=== PATIENT | female | born 1935 | race Caucasian/White ===

== ENCOUNTER → 2017-03-20 | Outpatient (CLI) | payer MEDICARE, OTHER ==
[2015-09-19 00:07] VITALS: BP 130/54
[~2017-03-20] MED LIST: ALPR1TAB2 PO; APIX5TAB3 PO; ASPI325T8 PO; CALC-98 PO; CARV12.5 PO; EZET10TA18 PO; FURO20TA3 PO; LEVO75TA PO; LEVO88TA4 PO; LISI-338 PO; LOSA100T6 PO; LOSA50TA6 PO; METH-37 PO; METR500T8 PO; MULT-246 PO; MV,C1TAB19 PO; NITR0.4T22 SL; OMEG500C PO; POTA10TA10 PO; PRAV40TA PO
--- NOTE | 2017-03-20 16:51 | RAD ---
Indication: Urinary frequency. Cystocele. Discomfort. Technique: Transabdominal and transvaginal pelvic ultrasound was performed. Findings: Patient has underwent hysterectomy. Vaginal cuff is within normal limits. There is no free pelvic fluid. Neither ovary is visualized transabdominally or transvaginally. Bladder volume is calculated at 180 mL and postvoid residual is 43 mL. Impression: Post hysterectomy. Mild post void residual.
== END | disposition home or self-care (01) ==
LOC: US 14:13
PROVIDERS: ATTEND Nurse Practitioner Family
DX: N81.11 Cystocele, midline (principal); F17.210 Nicotine dependence, cigarettes, uncomplicated; Z90.710 Acquired absence of both cervix and uterus
CPT/HCPCS: 76830; 76856

== ENCOUNTER 2017-07-19 17:40 | Inpatient (IN) | payer MEDICARE, OTHER ==
[~2017-07-19] VITALS: Ht 165.1 cm; Wt 70.5 kg
[2017-07-19 18:26] LABS: BASO % 1 % (0-3); EOS # 0.1 x10^3/uL (0.0-0.7); EOS % 2 % (0-3); HEMATOCRIT 40.6 % (36.0-47.0); HEMOGLOBIN 14.4 g/dL (12.0-15.5); LYMPH # 2.4 x10^3/uL (1.0-4.8); LYMPH % 38 % (24-48); MEAN CORPUSCULAR HEMOGLOBIN 33 pg (25-35); MEAN CORPUSCULAR HGB CONC 35 g/dL (31-37); MEAN CORPUSCULAR VOLUME 94 fL (79-100); MONO # 0.5 x10^3/uL (0.0-1.1); MONO % 8 % (0-9); NEUT # 3.2 x10^3uL (1.8-7.7); NEUT % 51 % (31-73); PLATELET COUNT 257 x10^3/uL (140-400); RED BLOOD COUNT 4.31 x10^6/uL (3.50-5.40); RED CELL DISTRIBUTION WIDTH 13.6 % (11.5-14.5); WHITE BLOOD COUNT 6.3 x10^3/uL (4.0-11.0)
[2017-07-19 18:48] LABS: ALBUMIN 4.7 g/dL (3.4-5.0); ALBUMIN/GLOBULIN RATIO 1.2 (1.0-1.7); CALCIUM 9.4 mg/dL (8.5-10.1); CREATININE 0.7 mg/dL (0.6-1.0); GFR 80.3; POTASSIUM 3.2 mmol/L (3.5-5.1); TOTAL BILIRUBIN 0.9 mg/dL (0.2-1.0); TOTAL PROTEIN 8.7 g/dL (6.4-8.2)
--- NOTE | 2017-07-19 18:49 | PHYS DOC ---
Past History Past Medical History: Anxiety, CAD, High Cholesterol, Heart Disease, Hypertension, Hypothyroid Past Surgical History: Other Smoking: Cigarettes, Less than 1pk/day Alcohol Use: None Drug Use: None Adult General Chief Complaint Chief Complaint: dizziness HPI HPI 82-year-old female patient brought in by EMS because of dizziness. Patient states she felt dizzy and lightheadedness with nausea at 1300 today while she was at grocery and after drinking somewhat and felt better. Patient states she went home and felt fine but then her son visited her , her speech did not make sense and she couldn't tell her words right. She denies focal neuro deficit, headache, vomiting, patient. Patient is a poor historian and unable to give a good history. Patient complaining of irregular heartbeat to EMS and chest discomfort to [employer]GER [employer] at arrival but denied any chest pain or palpitation to me. Review of Systems Review of Systems Constitutional: Denies fever or chills [] Eyes: Denies change in visual acuity, redness, or eye pain [] HENT: Denies nasal congestion or sore throat [] Respiratory: Denies cough or shortness of breath [] Cardiovascular: No additional information not addressed in HPI [] GI: Denies abdominal pain, vomiting, bloody stools or diarrhea, reports nausea [] : Denies dysuria or hematuria [] Musculoskeletal: Denies back pain or joint pain [] Integument: Denies rash or skin lesions [] Neurologic: Reports dizziness, denies headache, focal weakness or sensory changes [] Endocrine: Denies polyuria or polydipsia [] All other systems were reviewed and found to be within normal limits, except as documented in this note. Allergies Allergies Allergies Coded Allergies Type Severity Reaction Last Updated Verified Penicillins Allergy Intermediate Hives 06/09/13 Yes acetaminophen Allergy Intermediate Rash 02/09/14 Yes amlodipine besylate Allergy Intermediate Swelling 06/09/13 Yes carisoprodol Allergy Intermediate BREAK OUT 02/09/14 Yes iodine Allergy Intermediate 08/04/13 Yes nitrofurantoin Allergy Intermediate 08/04/13 Yes sertraline HCl Allergy Intermediate Nausea 02/10/14 Yes Influenza Virus Vaccines Allergy Unknown ANAPHYLAXIS 09/18/15 Yes Physical Exam Physical Exam Constitutional: Well nourished, no acute distress, non-toxic appearance. [] HENT: Normocephalic, atraumatic, bilateral external ears normal, oropharynx moist, no oral exudates, nose normal. [] Eyes: PERRLA, EOMI, conjunctiva normal, no discharge. [] Neck: Normal range of motion, no tenderness, supple, no stridor. bilat carotid bruits Cardiovascular:Heart rate regular rhythm, systolic murmur Lungs & Thorax: Bilateral breath sounds clear to auscultation [] Abdomen: Bowel sounds normal, soft, no tenderness, no masses, no pulsatile masses. [] Skin: Warm, dry, no erythema, no rash. [] Back: No tenderness, no CVA tenderness. [] Extremities: No tenderness, no cyanosis, no clubbing, ROM intact, no edema. [] Neurologic: Alert and oriented X 3, normal motor function, normal sensory function, no focal deficits noted. NIH 0 Psychologic: Affect normal, judgement normal, mood normal. [] Current Patient Data Vital Signs Vital Signs Date Time Temp Pulse Resp B/P (MAP) Pulse Ox O2 Delivery O2 Flow Rate FiO2 07/19/17 18:17 98.1 79 20 97 Room Air Lab Results Laboratory Tests Test 07/19/17 18:05 White Blood Count 6.3 x10^3/uL (4.0-11.0) Red Blood Count 4.31 x10^6/uL (3.50-5.40) Hemoglobin 14.4 g/dL (12.0-15.5) Hematocrit 40.6 % (36.0-47.0) Mean Corpuscular Volume 94 fL (79-100) Mean Corpuscular Hemoglobin 33 pg (25-35) Mean Corpuscular Hemoglobin Concent 35 g/dL (31-37) Red Cell Distribution Width 13.6 % (11.5-14.5) Platelet Count 257 x10^3/uL (140-400) Neutrophils (%) (Auto) 51 % (31-73) Lymphocytes (%) (Auto) 38 % (24-48) Monocytes (%) (Auto) 8 % (0-9) Eosinophils (%) (Auto) 2 % (0-3) Basophils (%) (Auto) 1 % (0-3) Neutrophils # (Auto) 3.2 x10^3uL (1.8-7.7) Lymphocytes # (Auto) 2.4 x10^3/uL (1.0-4.8) Monocytes # (Auto) 0.5 x10^3/uL (0.0-1.1) Eosinophils # (Auto) 0.1 x10^3/uL (0.0-0.7) Basophils # (Auto) 0.0 x10^3/uL (0.0-0.2) Troponin I Quantitative < 0.017 ng/mL (0-0.055) EKG EKG EKG interpreted by me. EKG at 1749 showed sinus rhythm with bigeminy PVCs, poor R-wave progress in anterolateral leads. Radiology/Procedures Radiology/Procedures CT head showed chronic changes, no acute changes per radiologist[] Course & Med Decision Making Course & Med Decision Making Pertinent Labs and Imaging studies are pending. (See chart for details) Patient's care transferred to Dr. García at 1950 with hx of [place], episode of dysarthria/expressive aphasia, carotid bruits, will admit for possible TIA w/u [] Dragon Disclaimer Dragon Disclaimer This electronic medical record was generated, in whole or in part, using a voice recognition dictation system. Departure Departure: Impression: Primary Impression: Dizziness Referrals: MARYA MAJOR MD (PCP) TACHO ALMAZAN MD Jul 19, 2017 18:49 MICHELLE GARCÍA MD Jul 20, 2017 00:38
--- NOTE | 2017-07-19 19:10 | RAD ---
Indication: Dizziness and confusion. TECHNIQUE: CT head without IV contrast COMPARISON: Previous study from 04/18/2015 FINDINGS: No pathologic extra-axial or intra-axial fluid collection. There is mild diffuse cerebral atrophy with ex vacuo dilation of the ventricles. The basal cisterns are within normal limits. Visualized orbits within normal limits. No acute intracranial bleed. No focal loss of condon-white differentiation. No calvarial lesions. Visualized paranasal sinuses and mastoid air cells are clear. Confluent low-attenuation is seen in the periventricular and deep white matter. IMPRESSION: 1. No acute intracranial process on this noncontrast CT. If concern for acute ischemic stroke is high, please consider MRI brain. 2. Advanced white matter changes likely secondary to chronic microvascular ischemic disease. Electronically signed by: Ahsan Dietz DO (07/19/2017 7:07 PM) [facility]
[2017-07-19] MEDS ORDERED: IV NORMAL SALINE 1,000ML 1,000 ML IV ONE (20:45)
[2017-07-19] MEDS ORDERED: POTASSIUM CHLORIDE 20 MEQ TABLET.ER. PO ONE (21:00)
[2017-07-19 21:33] LABS: BILIRUBIN,URINE NEG (NEG); CLARITY,URINE CLEAR; COLOR,URINE YELLOW; GLUCOSE,URINE NEG (NEG); NITRITE,URINE NEG (NEG); UROBILINOGEN,URINE 0.2 mg/dL (0.2 mg/dL)
[2017-07-19 21:34] LABS: BACTERIA,URINE 0 /HPF (0-FEW); SQUAMOUS EPITHELIAL CELL,UR FEW /LPF
[2017-07-19] MEDS ORDERED: ONDANSETRON PF 4 MG/2 ML VIAL. IV PRN (22:30)
[2017-07-20 02:09] VITALS: BP 150/84
[2017-07-20] MEDS ORDERED: HYDR12.53 PO (05:10)
[2017-07-20] MEDS ORDERED: CARV25TA2 PO (05:10)
[2017-07-20] MEDS ORDERED: LEVO50TA5 PO (05:10)
[2017-07-20] MEDS ORDERED: ZOLP10TA PO (05:10)
[2017-07-20] MEDS ORDERED: NIFE30TA15 PO (05:10)
[2017-07-20] MEDS ORDERED: CLON0.1T PO (05:10)
[2017-07-20 05:17] VITALS: BP 114/63
[2017-07-20] MEDS ORDERED: NITROGLYCERIN SUBLINGUAL 0.4 MG BOTTLE OF 25. SL PRN (07:00)
[2017-07-20] MEDS ORDERED: ZOLPIDEM 5 MG TABLET. PO PRN (07:00)
[2017-07-20] MEDS ORDERED: ANTI-COAG MONITOR BY PHARMACY. MC PRN (07:00)
[2017-07-20] MEDS ORDERED: cloNIDine HCL 0.1 MG TABLET PO PRN (07:00)
[2017-07-20] MEDS ORDERED: LEVOTHYROXINE 50 MCG TABLET PO SCH (07:30)
[2017-07-20] MEDS ORDERED: CALCIUM CARB/VIT D3 500/200 TABLET PO SCH (08:00)
[2017-07-20 08:51] VITALS: BP 114/63
[2017-07-20] MEDS ORDERED: OMEGA-3 FATTY ACIDS/FISH OIL 1,000 MG CAPSULE. PO SCH (09:00)
[2017-07-20] MEDS ORDERED: APIXABAN 5 MG TABLET. PO SCH (09:00)
[2017-07-20] MEDS ORDERED: MULTIVITAMIN with MINERAL TABLET. PO SCH (09:00)
[2017-07-20] MEDS ORDERED: NON FORMULARY ITEM (Carvedilol 25 MG) PO SCH (09:00)
[2017-07-20] MEDS ORDERED: ALPRAZolam 0.5 MG TABLET PO SCH (09:00)
[2017-07-20] MEDS ORDERED: hydroCHLOROthiazide 12.5 MG CAPSULE PO SCH (09:00)
--- NOTE | 2017-07-20 09:35 | RAD ---
Portable chest, 07/19/2017: History: Dizziness, confusion Comparison is made to a study from 02/08/2014. The heart size and pulmonary vascularity are normal. There is calcific plaquing of the aorta. No pulmonary infiltrate is seen. There is no evidence of pleural fluid. The bony structures are demineralized. IMPRESSION: No acute cardiopulmonary abnormality is detected.
[2017-07-20 10:10] LABS: BASO % 1 % (0-3); EOS # 0.1 x10^3/uL (0.0-0.7); EOS % 2 % (0-3); HEMATOCRIT 40.9 % (36.0-47.0); HEMOGLOBIN 14.1 g/dL (12.0-15.5); LYMPH # 1.8 x10^3/uL (1.0-4.8); LYMPH % 36 % (24-48); MEAN CORPUSCULAR HEMOGLOBIN 33 pg (25-35); MEAN CORPUSCULAR HGB CONC 35 g/dL (31-37); MEAN CORPUSCULAR VOLUME 96 fL (79-100); MONO # 0.3 x10^3/uL (0.0-1.1); MONO % 6 % (0-9); NEUT # 2.9 x10^3uL (1.8-7.7); NEUT % 56 % (31-73); PLATELET COUNT 276 x10^3/uL (140-400); RED BLOOD COUNT 4.28 x10^6/uL (3.50-5.40); RED CELL DISTRIBUTION WIDTH 13.5 % (11.5-14.5); WHITE BLOOD COUNT 5.1 x10^3/uL (4.0-11.0)
[2017-07-20 10:31] LABS: CALCIUM 9.2 mg/dL (8.5-10.1); CREATININE 0.7 mg/dL (0.6-1.0); GFR 80.3; POTASSIUM 3.6 mmol/L (3.5-5.1)
[2017-07-20] MEDS ORDERED: ASPI-630 PO (10:59)
--- NOTE | 2017-07-20 19:55 | HP ---
ADMIT DATE: HISTORY OF PRESENT ILLNESS: An 82-year-old female transferred here from the [facility] ER, they were on diversion. In any case, the patient was having problems with slurred speech, double speech, and as a result of this, the patient was transferred and seen through the Emergency Room. The patient in turn denies any headaches, although she felt dizzy, lightheaded and some nausea. The patient has been having problems with hypertension in the past. She denied outside of her trouble speaking, any neurological deficits, headaches or vomiting. The patient otherwise complains of irregular heartbeat to EMS and chest discomfort. PAST MEDICAL HISTORY: Included heart attack x 2, congestive heart failure. She is on anticoagulant therapy, hypercholesterolemia, colonic polyps, hemorrhoids, hysterectomy, urinary tract infections, hypothyroidism, depression, anxiety. Pneumonia and flu shots are up-to-date. FAMILY HISTORY: Diabetes in the mother, sister with Alzheimer disease. ALLERGIES: INFLUENZA VIRUS VACCINES, PENICILLINS, ACETAMINOPHEN, AMLODIPINE, SOMA, IODINE, NITROFURANTOIN, ZOLOFT. MEDICATIONS: Reviewed. Lipitor 10, Zetia, fish oil, nifedipine 30 mg daily, carvedilol 25 t.i.d., Xanax 1 mg b.i.d., Microzide 12.5, Eliquis 5 mg, Synthroid 50 mcg, nitroglycerin, clonidine, Zofran, potassium chloride. SOCIAL HISTORY: No smoking, alcohol or drug use. REVIEW OF SYSTEMS: The patient denies any recent weight loss, weight gain, change in bowel habit. Does have some slurred speech that came on all of a sudden during the day. Denied chest pain when examined here. Neurologically stable. Did have some nausea, but no vomiting. No problem with her bowels. PHYSICAL EXAMINATION: VITAL SIGNS: Blood pressure 114/60, respiration 18, pulse 53, afebrile. HEENT: The patient's head was atraumatic, normocephalic. Eyes: PERRLA without jaundice. Mouth and throat were normal. NECK: Supple without JVD or thyromegaly. LUNGS: Clear to auscultation. CARDIOVASCULAR: Regular sinus rhythm, S1, S2, without murmur, rub, thrill, or extra heart sound. ABDOMEN: Soft, nontender, no rebound or guarding. Positive bowel sounds. No hepatosplenomegaly was noted. EXTREMITIES: No clubbing, cyanosis, or edema. NEUROLOGIC: The patient was alert and oriented x 3. Speech fluent, spontaneous and appropriate, although she did have a little bit intermittent. The patient has been worked up extensively at [facility] for echoes as well as carotid Dopplers. IMPRESSION: Transient ischemic attack, hypercholesterolemia, and hypertension, essential. The patient will be monitored carefully, make further evaluation on her. She was to make sure she was taking her aspirin, and will continue to be monitored to make further evaluation on her as noted. MARYA MAJOR MD DR: ALYSSA/maryann JOB#: [id number] / [id number]
[2017-07-20] MEDS ORDERED: ATORVASTATIN CALCIUM 10 MG TABLET. PO SCH (21:00)
[2017-07-20] MEDS ORDERED: EZETIMIBE 10 MG TABLET PO SCH (21:00)
--- NOTE | 2017-07-21 07:41 | EKG ---
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
--- NOTE | 2017-07-26 10:04 | DS ---
DATE OF DISCHARGE: 07/20/2017 HOSPITAL COURSE: The patient is an 82-year-old female, who came in, was transferred from [facility]. They were ____ with possible TIA. She was searching for her words and having difficulty understanding things there for a while, although tended to clear up. She also was feeling dizzy, lightheaded, some nausea. The patient was admitted. CT scan was unremarkable and the patient made excellent recovery during the rest of her hospitalization. Last blood pressure 114/63, respiration 18, pulse 60. The patient's labs were basically unremarkable. In any case, the patient made good progress with the rest of her hospitalization. She had a slightly low potassium and a slightly elevated blood sugar. The patient otherwise did reasonably well, was discharged home. See MRAD. Decreased activity. She will follow up in 7-10 days or see me sooner as needed. See MRAD. IMPRESSION: Transient ischemic attack, hypokalemia, hyperglycemia. MARYA MAJOR MD DR: ALYSSA/maryann JOB#: [id number] / [id number]
== END 2017-07-20 11:23 | disposition home or self-care (01) | DRG 69 ==
LOC: ER 17:40 → 1 SOUTH 22:18
PROVIDERS: ADMIT Family Medicine; ATTEND Family Medicine
DX: G45.9 Transient cerebral ischemic attack, unspecified (principal); I11.0 Hypertensive heart disease with heart failure; I50.9 Heart failure, unspecified; F32.9 Major depressive disorder, single episode, unspecified; I25.10 Atherosclerotic heart disease of native coronary artery without angina pectoris; E03.9 Hypothyroidism, unspecified; F41.9 Anxiety disorder, unspecified; F17.210 Nicotine dependence, cigarettes, uncomplicated; E78.00 Pure hypercholesterolemia, unspecified; I25.2 Old myocardial infarction; Z83.3 Family history of diabetes mellitus; Z82.0 Family history of epilepsy and other diseases of the nervous system; Z86.010 Personal history of colon polyps; Z90.710 Acquired absence of both cervix and uterus; Z88.1 Allergy status to other antibiotic agents; Z88.0 Allergy status to penicillin; Z88.7 Allergy status to serum and vaccine; Z88.8 Allergy status to other drugs, medicaments and biological substances; Z91.041 Radiographic dye allergy status; Z87.440 Personal history of urinary (tract) infections; Z79.899 Other long term (current) drug therapy
CPT/HCPCS: 36415; 70450; 71045; 80048; 80053; 81001; 82553; 83735; 83880; 84484; 85025; 85610; 99285-25; J7030

== ENCOUNTER 2018-10-30 16:51 | Emergency (ER) | payer MEDICARE, OTHER ==
[~2018-10-30] VITALS: Ht 317.5 cm; Wt 58.0 kg
[~2018-10-30 16:51] MED LIST changes: +ASPI-630 PO; +CARV25TA2 PO; +CLON0.1T PO; +HYDR12.572 PO; +LEVO50TA5 PO; +LOSA100T14 PO; -LOSA100T6 PO; -LOSA50TA6 PO; +LOSA50TA86 PO; +METR-34 PO; -METR500T8 PO; +NIFE30TA15 PO; +ZOLP10TA PO
--- NOTE | 2018-10-30 17:11 | EKG ---
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
[2018-10-30 18:07] LABS: BASO % 0 % (0-3); EOS # 0.1 x10^3/uL (0.0-0.7); EOS % 1 % (0-3); HEMOGLOBIN 13.9 g/dL (12.0-15.5); LYMPH # 2.1 x10^3/uL (1.0-4.8); LYMPH % 18 % (24-48); MEAN CORPUSCULAR HEMOGLOBIN 32 pg (25-35); MEAN CORPUSCULAR HGB CONC 34 g/dL (31-37); MEAN CORPUSCULAR VOLUME 94 fL (79-100); MONO # 0.8 x10^3/uL (0.0-1.1); MONO % 7 % (0-9); NEUT # 8.7 x10^3uL (1.8-7.7); NEUT % 74 % (31-73); PLATELET COUNT 283 x10^3/uL (140-400); RED BLOOD COUNT 4.36 x10^6/uL (3.50-5.40); RED CELL DISTRIBUTION WIDTH 13.6 % (11.5-14.5); WHITE BLOOD COUNT 11.7 x10^3/uL (4.0-11.0)
[2018-10-30 18:11] LABS: BILIRUBIN,URINE NEG (NEG); CLARITY,URINE CLOUDY; COLOR,URINE AMBER; GLUCOSE,URINE NEG (NEG); UROBILINOGEN,URINE 0.2 mg/dL (0.2 mg/dL)
[2018-10-30 18:12] LABS: BACTERIA,URINE FEW /HPF (0-FEW); HYALINE CASTS, URINE OCC /HPF; NITRITE,URINE NEG (NEG); SQUAMOUS EPITHELIAL CELL,UR OCC /LPF
[2018-10-30 18:28] LABS: ALBUMIN 4.1 g/dL (3.4-5.0); ALBUMIN/GLOBULIN RATIO 1.1 (1.0-1.7); CREATININE 0.7 mg/dL (0.6-1.0); GFR 80.1; POTASSIUM 3.5 mmol/L (3.5-5.1); TOTAL BILIRUBIN 0.9 mg/dL (0.2-1.0); TOTAL PROTEIN 7.7 g/dL (6.4-8.2)
--- NOTE | 2018-10-30 18:34 | PHYS DOC ---
Past History Past Medical History: Anxiety, CAD, High Cholesterol, Heart Disease, Hypertension, Hypothyroid Past Surgical History: Other Smoking: Cigarettes, Less than 1pk/day Alcohol Use: None Drug Use: None Adult General Chief Complaint Chief Complaint: HYPERTENSION HPI HPI Patient is a [age] year old [sex] who presents with [] Review of Systems Review of Systems Constitutional: Denies fever or chills [] Eyes: Denies change in visual acuity, redness, or eye pain [] HENT: Denies nasal congestion or sore throat [] Respiratory: Denies cough or shortness of breath [] Cardiovascular: No additional information not addressed in HPI [] GI: Denies abdominal pain, nausea, vomiting, bloody stools or diarrhea [] : Denies dysuria or hematuria [] Musculoskeletal: Denies back pain or joint pain [] Integument: Denies rash or skin lesions [] Neurologic: Denies headache, focal weakness or sensory changes [] Endocrine: Denies polyuria or polydipsia [] All other systems were reviewed and found to be within normal limits, except as documented in this note. Allergies Allergies Allergies Coded Allergies Type Severity Reaction Last Updated Verified Penicillins Allergy Intermediate Hives 06/09/13 Yes acetaminophen Allergy Intermediate Rash 02/09/14 Yes amlodipine besylate Allergy Intermediate Swelling 06/09/13 Yes carisoprodol Allergy Intermediate BREAK OUT 02/09/14 Yes iodine Allergy Intermediate 08/04/13 Yes nitrofurantoin Allergy Intermediate 08/04/13 Yes sertraline HCl Allergy Intermediate Nausea 02/10/14 Yes Influenza Virus Vaccines Allergy Unknown ANAPHYLAXIS 09/18/15 Yes Physical Exam Physical Exam Constitutional: Well developed, well nourished, no acute distress, non-toxic appearance. [] HENT: Normocephalic, atraumatic, bilateral external ears normal, oropharynx moist, no oral exudates, nose normal. [] Eyes: PERRLA, EOMI, conjunctiva normal, no discharge. [] Neck: Normal range of motion, no tenderness, supple, no stridor. [] Cardiovascular:Heart rate regular rhythm, no murmur [] Lungs & Thorax: Bilateral breath sounds clear to auscultation [] Abdomen: Bowel sounds normal, soft, no tenderness, no masses, no pulsatile masses. [] Skin: Warm, dry, no erythema, no rash. [] Back: No tenderness, no CVA tenderness. [] Extremities: No tenderness, no cyanosis, no clubbing, ROM intact, no edema. [] Neurologic: Alert and oriented X 3, normal motor function, normal sensory function, no focal deficits noted. [] Psychologic: Affect normal, judgement normal, mood normal. [] Current Patient Data Vital Signs Vital Signs Date Time Temp Pulse Resp B/P (MAP) Pulse Ox O2 Delivery O2 Flow Rate FiO2 10/30/18 17:59 81 16 172/99 (123) 97 Lab Results Laboratory Tests Test 10/30/18 17:30 10/30/18 17:45 White Blood Count 11.7 x10^3/uL (4.0-11.0) H Red Blood Count 4.36 x10^6/uL (3.50-5.40) Hemoglobin 13.9 g/dL (12.0-15.5) Hematocrit 41.0 % (36.0-47.0) Mean Corpuscular Volume 94 fL (79-100) Mean Corpuscular Hemoglobin 32 pg (25-35) Mean Corpuscular Hemoglobin Concent 34 g/dL (31-37) Red Cell Distribution Width 13.6 % (11.5-14.5) Platelet Count 283 x10^3/uL (140-400) Neutrophils (%) (Auto) 74 % (31-73) H Lymphocytes (%) (Auto) 18 % (24-48) L Monocytes (%) (Auto) 7 % (0-9) Eosinophils (%) (Auto) 1 % (0-3) Basophils (%) (Auto) 0 % (0-3) Neutrophils # (Auto) 8.7 x10^3uL (1.8-7.7) H Lymphocytes # (Auto) 2.1 x10^3/uL (1.0-4.8) Monocytes # (Auto) 0.8 x10^3/uL (0.0-1.1) Eosinophils # (Auto) 0.1 x10^3/uL (0.0-0.7) Basophils # (Auto) 0.0 x10^3/uL (0.0-0.2) Sodium Level 130 mmol/L (136-145) L Potassium Level 3.5 mmol/L (3.5-5.1) Chloride Level 94 mmol/L (98-107) L Carbon Dioxide Level 25 mmol/L (21-32) Anion Gap 11 (6-14) Blood Urea Nitrogen 10 mg/dL (7-20) Creatinine 0.7 mg/dL (0.6-1.0) Estimated GFR (Cockcroft-Gault) 80.1 BUN/Creatinine Ratio 14 (6-20) Glucose Level 106 mg/dL (70-99) H Calcium Level 9.0 mg/dL (8.5-10.1) Total Bilirubin 0.9 mg/dL (0.2-1.0) Aspartate Amino Transferase (AST) 26 U/L (15-37) Alanine Aminotransferase (ALT) 22 U/L (14-59) Alkaline Phosphatase 76 U/L (46-116) Total Protein 7.7 g/dL (6.4-8.2) Albumin 4.1 g/dL (3.4-5.0) Albumin/Globulin Ratio 1.1 (1.0-1.7) Urine Collection Type Unknown Urine Color Katiana Urine Clarity Cloudy Urine pH 7.0 Urine Specific [place] 1.020 Urine Protein >100 mg/dl (NEG-TRACE) Urine Glucose (UA) Neg mg/dL (NEG) Urine Ketones (Stick) Neg mg/dL (NEG) Urine Blood Large (NEG) Urine Nitrite Neg (NEG) Urine Bilirubin Neg (NEG) Urine Urobilinogen Dipstick 0.2 mg/dL (0.2 mg/dL) Urine Leukocyte Esterase Small (NEG) Urine RBC 11-20 /HPF (0-2) Urine WBC 1-4 /HPF (0-4) Urine Squamous Epithelial Cells Occ /LPF Urine Bacteria Few /HPF (0-FEW) Urine Hyaline Casts Occ /HPF Urine Mucus Mod /LPF EKG EKG @1659 NSR at 86bpm, NO ST elevation, incomplete RBBB, low voltage QRS Radiology/Procedures Radiology/Procedures [] Course & Med Decision Making Course & Med Decision Making Pertinent Labs and Imaging studies reviewed. (See chart for details) [] Dragon Disclaimer Dragon Disclaimer This electronic medical record was generated, in whole or in part, using a voice recognition dictation system. Departure Departure: Impression: Primary Impression: Hypertension Additional Impression: Urinary retention Disposition: 01 HOME, SELF-CARE Condition: STABLE Referrals: MARYA MAJOR MD (PCP) HARI SUTTON MD Patient Instructions: Joyner Catheter Care, Adult, Hypertension, [id number] Additional Instructions: Please take all your medications as prescribed and follow closely with your family physician for adjustment of your blood pressure medications. Follow closely with your surgeon for your prolapse. Problem Qualifiers Primary Impression: Hypertension Hypertension type: unspecified Qualified Codes: I10 - Essential (primary) hypertension IRVING PALMER DO Oct 30, 2018 18:34
[2018-10-30 18:35] VITALS: BP 178/105
== END 2018-10-30 19:30 | disposition home or self-care (01) ==
LOC: ER 16:51
DX: I10 Essential (primary) hypertension (principal); R33.9 Retention of urine, unspecified; I25.10 Atherosclerotic heart disease of native coronary artery without angina pectoris; E78.00 Pure hypercholesterolemia, unspecified; I11.9 Hypertensive heart disease without heart failure; E03.9 Hypothyroidism, unspecified; F17.210 Nicotine dependence, cigarettes, uncomplicated; Z88.0 Allergy status to penicillin; Z88.6 Allergy status to analgesic agent; Z88.8 Allergy status to other drugs, medicaments and biological substances; Z88.7 Allergy status to serum and vaccine
CPT/HCPCS: 36415; 51702; 80053; 81001; 85025; 87086; 93005; 99285-25

== ENCOUNTER → 2019-02-01 | Outpatient (CLI) | payer MEDICARE, OTHER ==
[~2019-02-01] MED LIST changes: -EZET10TA18 PO; +EZET10TA20 PO
[2019-02-01 13:49] LABS: BASO # 0.1 x10^3/uL (0.0-0.2); BASO % 1 % (0-3); EOS # 0.1 x10^3/uL (0.0-0.7); EOS % 1 % (0-3); HEMATOCRIT 38.6 % (36.0-47.0); HEMOGLOBIN 13.3 g/dL (12.0-15.5); LYMPH # 2.5 x10^3/uL (1.0-4.8); LYMPH % 37 % (24-48); MEAN CORPUSCULAR HEMOGLOBIN 32 pg (25-35); MEAN CORPUSCULAR HGB CONC 34 g/dL (31-37); MEAN CORPUSCULAR VOLUME 94 fL (79-100); MONO # 0.5 x10^3/uL (0.0-1.1); MONO % 8 % (0-9); NEUT # 3.7 x10^3uL (1.8-7.7); NEUT % 54 % (31-73); PLATELET COUNT 325 x10^3/uL (140-400); RED BLOOD COUNT 4.11 x10^6/uL (3.50-5.40); RED CELL DISTRIBUTION WIDTH 14.8 % (11.5-14.5); WHITE BLOOD COUNT 6.8 x10^3/uL (4.0-11.0)
--- NOTE | 2019-02-01 13:55 | RAD ---
EXAM: CT HEAD WITHOUT CONTRAST. HISTORY: Fall, head injury. TECHNIQUE: Computed tomography of the head was performed without intravenous contrast. *One or more of the following individualized dose reduction techniques were utilized for this examination: 1. Automated exposure control. 2. Adjustment of the mA and/or kV according to patient size. 3. Use of iterative reconstruction technique. COMPARISON: 07/19/2017. FINDINGS: There is no intracranial hemorrhage. 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 There is moderate to severe chronic microangiopathic white matter change elsewhere. Prominence of the lateral ventricles and hemispheric sulci indicates mild to moderate atrophy for patient age. 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 The orbits are unremarkable. The temporal bones are unremarkable. The calvarium reveals no suspicious lesions. There are atherosclerotic calcifications of the internal carotid and vertebral arteries. IMPRESSION: 1. No acute intracranial findings. 2. Mild to moderate atrophy and moderate to severe chronic microangiopathic change. Electronically signed by: Truman Jonas MD (02/01/2019 1:51 PM) [facility]
[2019-02-01 14:08] LABS: ALBUMIN 4.3 g/dL (3.4-5.0); ALBUMIN/GLOBULIN RATIO 1.1 (1.0-1.7); CALCIUM 9.5 mg/dL (8.5-10.1); CREATININE 0.7 mg/dL (0.6-1.0); GFR 80.1; POTASSIUM 3.9 mmol/L (3.5-5.1); TOTAL BILIRUBIN 0.5 mg/dL (0.2-1.0); TOTAL PROTEIN 8.1 g/dL (6.4-8.2)
== END | disposition home or self-care (01) ==
LOC: CT 12:56
PROVIDERS: ATTEND Family Medicine
DX: S09.8XXA Other specified injuries of head, initial encounter (principal); I63.81 Other cerebral infarction due to occlusion or stenosis of small artery; G31.9 Degenerative disease of nervous system, unspecified; I65.23 Occlusion and stenosis of bilateral carotid arteries; R90.82 White matter disease, unspecified; X58.XXXA Exposure to other specified factors, initial encounter; Y93.89 Activity, other specified; Y92.89 Other specified places as the place of occurrence of the external cause; Y99.8 Other external cause status
CPT/HCPCS: 36415; 70450; 80053; 85025

== ENCOUNTER 2019-02-11 06:30 | Inpatient (IN) | payer MEDICARE, OTHER ==
[~2019-02-11] VITALS: Ht 162.6 cm; Wt 66.7 kg
[2019-02-11] MEDS ORDERED: FUROSEMIDE 40 MG/4 ML VIAL IVP ONE (07:00)
[2019-02-11] MEDS ORDERED: IPRATRPIUM/ALBUTEROL 0.5/2.5MG 3 ML NEBU. NEB ONE (07:00)
[2019-02-11] MEDS ORDERED: cloNIDine HCL 0.1 MG TABLET PO ONE (07:00)
--- NOTE | 2019-02-11 07:07 | PHYS DOC ---
Past History Past Medical History: No Pertinent History, Hypertension, VT, Stroke Past Surgical History: No Surgical History, Hysterectomy Smoking: Cigarettes, Less than 1pk/day Alcohol Use: None Drug Use: None Adult General Chief Complaint Chief Complaint: WEAKNESS/GENERALIZED HPI HPI 83-year-old female presents via EMS with shortness of breath. The patient started to feel short of breath early this morning. She does not provide detai ls, but says "I think I'm dying". She denies any pain. She is on medications but does not what they are. When EMS arrived, her O2 sat was 92% on room air. They tell us that after she got his rehabilitation should help or difficulty breathing so they put her on 15 L on nonrebreather. Patient denies recent fever or chills. She does not complain of anything else because of her breathing. Review of Systems Review of Systems Constitutional: Denies fever or chills [] Eyes: Denies change in visual acuity, redness, or eye pain [] HENT: Denies nasal congestion or sore throat [] Respiratory: Shortness of breath [] Cardiovascular: No additional information not addressed in HPI [] GI: Denies abdominal pain, nausea, vomiting, bloody stools or diarrhea [] : Denies dysuria or hematuria [] Musculoskeletal: Denies back pain or joint pain [] Integument: Denies rash or skin lesions [] Neurologic: Denies headache, focal weakness or sensory changes [] Endocrine: Denies polyuria or polydipsia [] All other systems were reviewed and found to be within normal limits, except as documented in this note. Current Medications Current Medications Current Medications Medications (Trade) Dose Ordered Sig/Sherrell Start Time Stop Time Status Last Admin Dose Admin Clonidine HCl (Catapres) 0.2 mg 1X ONCE 02/11/19 07:00 02/11/19 07:01 Furosemide (Lasix) 40 mg 1X ONCE 02/11/19 07:00 02/11/19 07:01 Allergies Allergies Allergies Coded Allergies Type Severity Reaction Last Updated Verified Penicillins Allergy Intermediate Hives 06/09/13 Yes acetaminophen Allergy Intermediate Rash 02/09/14 Yes amlodipine besylate Allergy Intermediate Swelling 06/09/13 Yes carisoprodol Allergy Intermediate BREAK OUT 02/09/14 Yes iodine Allergy Intermediate 08/04/13 Yes nitrofurantoin Allergy Intermediate 08/04/13 Yes sertraline HCl Allergy Intermediate Nausea 02/10/14 Yes Influenza Virus Vaccines Allergy Unknown ANAPHYLAXIS 09/18/15 Yes Physical Exam Physical Exam Constitutional: Well developed, well nourished, moderate acute distress, non- toxic appearance. [] HENT: Normocephalic, atraumatic, bilateral external ears normal, oropharynx moist, no oral exudates, nose normal. [] Eyes: PERRLA, EOMI, conjunctiva normal, no discharge. [] Neck: Normal range of motion, no tenderness, supple, no stridor. [] Cardiovascular:Heart rate 92, regular rhythm, no murmur [] Lungs & Thorax: Bilateral breath sounds with expiratory crackles [] Abdomen: Bowel sounds normal, soft, no tenderness, no masses, no pulsatile masses. [] Skin: Warm, dry, no erythema, no rash. [] Back: No tenderness, no CVA tenderness. [] Extremities: No tenderness, no cyanosis, no clubbing, ROM intact, no edema. [] Neurologic: Alert and oriented X 3, normal motor function, normal sensory function, no focal deficits noted. [] Psychologic: Affect normal, judgement normal, mood anxious [] Current Patient Data Vital Signs Vital Signs Date Time Temp Pulse Resp B/P (MAP) Pulse Ox O2 Delivery O2 Flow Rate FiO2 02/11/19 06:37 97.7 95 36 100 NonRebreather Mask EKG EKG [] Radiology/Procedures Radiology/Procedures [] Impressions: EXAM: CHEST ONE VIEW. HISTORY: Dyspnea, weakness. COMPARISON: 07/19/2017. FINDINGS: A frontal view of the chest is obtained. Interstitial opacities are consistent with hfyl-db-dnyulbdj pulmonary edema. The right hilum is prominent. There is no pneumothorax or clear pleural effusion. The heart is not enlarged. There are atherosclerotic calcifications of the aorta. Hyperinflation suggests chronic obstructive pulmonary disease. IMPRESSION: 1. Diffuse interstitial opacities are consistent with yayh-ay-cblfywau pulmonary edema. 2. Right hilar enlargement may represent a focal infiltrate or mass. CT or follow-up to resolution is recommended. Electronically signed by: Truman Jonas MD (02/11/2019 8:02 AM) [facility] [place] DICTATED AND SIGNED BY: CHRISSY JONAS MD DATE: 02/11/19 0802 CC: BIGG MCKEON DO; MARYA MAJOR MD ~ Course & Med Decision Making Course & Med Decision Making Pertinent Labs and Imaging studies reviewed. (See chart for details) On arrival, the patient had obvious expiratory crackles. She did not appear fluid overloaded, but her lung auscultation was consistent with fluid. Her chest x-ray confirmed pulmonary edema. She was given 40 mg of Lasix by IV. For her elevated blood pressure she was also given 2 of clonidine. The patient's initial ABG will pH was 7.25 with a 61 CO2 and O2 of 75. She began to have urinary output and her heart rate decreased. We were able to reduce her oxygen to 6 L with simple mask and maintaining an O2 sat greater than 92. Since she appeared to be improving, I did not immediately place her on BiPAP. We will repeat her ABG to make sure she is improving. Her chest x-ray also showed hilar prominence and there was concern for mass. I have ordered a CT of the chest. The patient's labs have a slightly elevated white count and an elevated blood sugar of 218. The patient's repeat ABG of pH of 7.397, CO2 37.4, O2 100. After began to get good urine output, the patient was feeling less short of breath. She was able to speak in full sentences. We were also able to back or down to nasal cannula. CT of the chest is pending. I spoke with Dr. Lazo about the patient and he has agreed to admit her for further management. 43 minutes of critical care time was spent on this patient exclusive of other billable procedures. [] Dragon Disclaimer Dragon Disclaimer This electronic medical record was generated, in whole or in part, using a voice recognition dictation system. Departure Departure: Impression: Primary Impression: Pulmonary edema Additional Impressions: Hypoxia Hypercapnia Disposition: ADMITTED INPATIENT Admitting Physician: Marya Major Condition: GUARDED Referrals: MARYA MAJOR MD (PCP) Problem Qualifiers BIGG MCKEON DO Feb 11, 2019 07:07
[2019-02-11 07:15] LABS: BGAS PH 7.25 (7.35-7.45)
[2019-02-11 07:47] LABS: BASO # 0.1 x10^3/uL (0.0-0.2); BASO % 1 % (0-3); EOS # 0.1 x10^3/uL (0.0-0.7); EOS % 1 % (0-3); HEMATOCRIT 43.4 % (36.0-47.0); HEMOGLOBIN 14.5 g/dL (12.0-15.5); LYMPH # 3.9 x10^3/uL (1.0-4.8); LYMPH % 31 % (24-48); MEAN CORPUSCULAR HEMOGLOBIN 32 pg (25-35); MEAN CORPUSCULAR HGB CONC 33 g/dL (31-37); MEAN CORPUSCULAR VOLUME 95 fL (79-100); MONO # 0.9 x10^3/uL (0.0-1.1); MONO % 7 % (0-9); NEUT # 7.6 x10^3uL (1.8-7.7); NEUT % 61 % (31-73); PLATELET COUNT 406 x10^3/uL (140-400); RED BLOOD COUNT 4.57 x10^6/uL (3.50-5.40); WHITE BLOOD COUNT 12.6 x10^3/uL (4.0-11.0)
[2019-02-11 08:00] LABS: ALBUMIN/GLOBULIN RATIO 1.1 (1.0-1.7); CALCIUM 8.6 mg/dL (8.5-10.1); CREATININE 0.8 mg/dL (0.6-1.0); GFR 68.7; POTASSIUM 3.8 mmol/L (3.5-5.1); TOTAL BILIRUBIN 0.8 mg/dL (0.2-1.0); TOTAL PROTEIN 7.8 g/dL (6.4-8.2)
--- NOTE | 2019-02-11 08:05 | RAD ---
EXAM: CHEST ONE VIEW. HISTORY: Dyspnea, weakness. COMPARISON: 07/19/2017. FINDINGS: A frontal view of the chest is obtained. Interstitial opacities are consistent with ypyp-uc-utmxjzxv pulmonary edema. The right hilum is prominent. There is no pneumothorax or clear pleural effusion. The heart is not enlarged. There are atherosclerotic calcifications of the aorta. Hyperinflation suggests chronic obstructive pulmonary disease. IMPRESSION: 1. Diffuse interstitial opacities are consistent with rueo-ia-efjzjwfe pulmonary edema. 2. Right hilar enlargement may represent a focal infiltrate or mass. CT or follow-up to resolution is recommended. Electronically signed by: Truman Jonas MD (02/11/2019 8:02 AM) [facility]
[2019-02-11 08:16] LABS: BILIRUBIN,URINE NEG (NEG); CLARITY,URINE CLEAR; COLOR,URINE YELLOW; GLUCOSE,URINE 100 mg/dL (NEG); NITRITE,URINE NEG (NEG); UROBILINOGEN,URINE 0.2 mg/dL (0.2 mg/dL)
[2019-02-11 08:17] LABS: BACTERIA,URINE 0 /HPF (0-FEW); HYALINE CASTS, URINE MOD /HPF; SQUAMOUS EPITHELIAL CELL,UR OCC /LPF
[2019-02-11 08:24] LABS: INFLUENZA A PATIENT NEGATIVE (NEGATIVE); INFLUENZA B PATIENT NEGATIVE (NEGATIVE)
[2019-02-11 08:52] LABS: BGAS PH 7.4 (7.35-7.45)
--- NOTE | 2019-02-11 09:33 | RAD ---
EXAM: CT OF THE CHEST WITHOUT CONTRAST. HISTORY: Pulmonary edema, hilar mass. TECHNIQUE: Computed tomography of the chest was performed without intravenous contrast. COMPARISON: None. FINDINGS: Images of the upper abdomen reveal calcified granulomas in the liver and spleen. Bone windows reveal a moderate superior plate compression fracture at L2. This is new since 2014. There are no pathologically enlarged mediastinal or axillary lymph nodes. Calcified mediastinal lymph nodes are likely secondary to old granulomatous disease. There are small bilateral pleural effusions and a small pericardial effusion. The left atrium is mildly enlarged. There are dense diffuse atherosclerotic calcifications of the aorta and coronary arteries. Aortic valve calcifications are noted. There is mild to moderate centrilobular emphysema in the apices. The right hilum demonstrates no mass. The finding of radiography is consistent with a mild infiltrate in the right upper and middle lobes. There is moderate centrilobular emphysema and basilar atelectasis. Calcified granulomas are noted. IMPRESSION: 1. The right hilar process is consistent with the right upper and middle lobe infiltrate. Follow-up to resolution is recommended by radiographs. 2. Moderate pulmonary edema. Small bilateral pleural and pericardial effusions. 3. Mild to moderate centrilobular emphysema. 4. Aortic valve calcifications. Correlate for aortic stenosis. *One or more of the following individualized dose reduction techniques were utilized for this examination: 1. Automated exposure control. 2. Adjustment of the mA and/or kV according to patient size. 3. Use of iterative reconstruction technique. Electronically signed by: Truman Jonas MD (02/11/2019 9:30 AM) [facility]
[2019-02-11] MEDS ORDERED: IV NORMAL SALINE 1,000ML 1,000 ML IV ONE (10:30)
[2019-02-11] MEDS ORDERED: LEVO75TA PO (10:38)
[2019-02-11] MEDS ORDERED: HYDR12.59 PO (10:41)
[2019-02-11] MEDS ORDERED: ONDANSETRON PF 4 MG/2 ML VIAL. IV PRN (11:00)
--- NOTE | 2019-02-11 11:00 | NUR ---
The patient, AGNIESZKA MOSS, 83 y/o, F admitted by MARYA MAJOR MD, was given written information regarding hospital policies, unit procedures and contact persons. Valuables were checked and left in room. Patient arrived to ICU 4, able to make needs known and denies complaints at this time. Reported by ER that patients BP was in low 80s and started on IV fluid bolus. Patients vitals remain stable at this time, sats remain 100% on 3L. Patient states she is feeling much better since leaving ER. Will notify Dr Major of arrival to unit.
[2019-02-11 11:11] VITALS: BP 119/75
[2019-02-11] MEDS: IPRATRPIUM/ALBUTEROL 0.5/2.5MG 3 ML NEBU. NEB SCH ×3 (12:00→20:00)
--- NOTE | 2019-02-11 13:03 | EKG ---
[address] [address] Test Date: 2019-02-11 Test Time: 06:41:47 Pat Name: AGNIESZKA MOSS Department: Room: Gender: F Backshoe Person: : [id number] Requested By: BIGG MCKEON Order Number: [id number] Reading MD: Measurements Intervals [place] Rate: 94 P: 56 AL: 192 QRS: 32 QRSD: 90 T: 65 QT: 340 QTc: 430 Interpretive Statements SINUS RHYTHM QRS(T) CONTOUR ABNORMALITY CONSIDER ANTEROLATERAL MYOCARDIAL DAMAGE POSSIBLY ABNORMAL ECG RI6.01 No previous ECG available for comparison
--- NOTE | 2019-02-11 13:59 | NUR ---
Patient ambulatory requires sba , continent of bowel and bladder and has been placed on Room air. Patients Joyner cath removed at this time, will assess accurate I&Os using bedside commode. Patient feeling much better since being admitted from ER. Dr Julio here today, no new orders at this time. Will continue to monitor.
[2019-02-11 15:39] VITALS: BP 105/55
[2019-02-11 15:40] VITALS: BP 87/49
[2019-02-11 15:48] VITALS: BP 107/57
[2019-02-11 19:16] VITALS: BP 116/58
--- NOTE | 2019-02-11 21:02 | HP ---
ADMIT DATE: 02/11/2019 HISTORY OF PRESENT ILLNESS: An 83-year-old female admitted to the ICU. She initially came in via EMS with extreme shortness of breath. She thought she was dying. She was extreme short of breath. Oxygen saturation on 15 liters, just at nonrebreather was at 92%. She denied any chest pain, was having extreme difficulty in breathing, was noted to have probable heart failure. The patient was admitted for acute on top of chronic respiratory failure along with hypoxia and acute on top of chronic diastolic heart failure. PAST SURGICAL HISTORY: The patient had a hysterectomy. PAST MEDICAL HISTORY: She has also had problems with her bladder and total leakage, otherwise cataract, had a heart attack; congestive heart failure, on anticoagulant therapy, Eliquis; hypercholesterolemia, hypertension, DVT, colonic polyps, hemorrhoids; abdominal surgery, 1/4 of her stomach removed; reproductive hysterectomy, urinary tract infections, hypothyroidism, depression, anxiety. SOCIAL HISTORY: The patient continues to smoke. She has been encouraged numerous times to stop smoking. The patient has about a 14-fkkw-swyj history of smoking. Denies alcohol use. She is a DNR. FAMILY HISTORY: Father had liver disease, mother with diabetes, brother with cancer and a sister with Alzheimer's. ALLERGIES: ADVERSE REACTION AND PROBLEMS WITH INFLUENZA VACCINATION, PENICILLIN. MEDICATIONS: Tylenol, alendronate, Norvasc, Soma, iodine, nitrofurantoin, sertraline, and spironolactone. Her medications were reviewed in the reconciliation part of the situation including Eliquis 5 mg b.i.d., Zetia 10, Pravachol 40, clonidine 0.1 p.r.n., nitroglycerin, carvedilol 25 b.i.d., nifedipine 30, hydrochlorothiazide, levothyroxine. REVIEW OF SYSTEMS: Pretty much as stated in the HPI. Denies headaches, visual change, blurred vision, double vision. Does have trouble with breathing, shortness of breath. No chest pain. Does have some mild nausea, but no vomiting. Neurologically, otherwise basically baseline there. PHYSICAL EXAMINATION: GENERAL: This is a pleasant white female. VITAL SIGNS: Blood pressure initially 80/46, came up to 110/57; respirations 16, pulse 61, afebrile. Initially, her blood pressure was well over 200/104 with a pulse of 92 with hypertensive urgency. HEENT: The patient's head was atraumatic, normocephalic. Otherwise, the eyes were PERRLA, EOMI. Sclerae clear. Mouth and throat were normal. NECK: Supple. No JVD or thyromegaly. LUNGS: Diminished throughout, but clear except at the bases that showed rales. CARDIOVASCULAR: The heart rate was tachy. ABDOMEN: Soft, nontender, no rebound or guarding. Positive bowel sounds. No hepatosplenomegaly was noted. EXTREMITIES: No clubbing, cyanosis. There was trace edema noted around the ankles and pretibial area, otherwise unremarkable. LABORATORY DATA: The patient's white count elevated at 12.6. BNP of 1300. Sodium, potassium, BUN and creatinine normal. Blood sugars at 218. I put her on a sliding scale. Otherwise, the patient will be admitted for CHF with that of a problem with type 2 diabetes, acute on top of chronic respiratory failure with hypoxia. PLAN: As above. Continue to monitor her Cardiology consultation and make further evaluation per those results. MARYA MAJOR MD DR: ALYSSA/maryann JOB#: [id number] / [id number]
--- NOTE | 2019-02-11 22:43 | NUR ---
Nursing Note: Pt woke up confused, unsure of where she was at. Pt able to be reoriented to surroundings. Pt remains close to nurses station and closely monitored for safety.
[2019-02-11 22:44] VITALS: BP 139/66
[2019-02-12] VITALS (12 sets, daily range): BP systolic 88–179; BP diastolic 35–98
[2019-02-12] MEDS: IPRATRPIUM/ALBUTEROL 0.5/2.5MG 3 ML NEBU. NEB SCH ×3 (05:12→09:09)
--- NOTE | 2019-02-12 05:46 | NUR ---
Shift Note: Pt is a/ox4 this morning, pt does have some confusion and requires reorientation at night. VS show elevated BP this am (162/97), home meds not ordered at this time, physician to round today and order as needed. Pt has been >96% on RA since admission, breathing treatments not given as pt is no longer SOA. IV is saline locked. Pt eating and drinking w/no n/v at this time. Pt has had no c/o pain since admission. Pt expresses a desire to be discharged today as she misses her dog.
--- NOTE | 2019-02-12 05:53 | NUR ---
Consult called to service for Cardiology this am.
[2019-02-12 06:31] LABS: BASO % 1 % (0-3); EOS # 0.1 x10^3/uL (0.0-0.7); EOS % 2 % (0-3); HEMATOCRIT 35.6 % (36.0-47.0); HEMOGLOBIN 12.3 g/dL (12.0-15.5); LYMPH # 2.4 x10^3/uL (1.0-4.8); LYMPH % 35 % (24-48); MEAN CORPUSCULAR HEMOGLOBIN 32 pg (25-35); MEAN CORPUSCULAR HGB CONC 35 g/dL (31-37); MEAN CORPUSCULAR VOLUME 93 fL (79-100); MONO # 0.6 x10^3/uL (0.0-1.1); MONO % 9 % (0-9); NEUT # 3.9 x10^3uL (1.8-7.7); NEUT % 55 % (31-73); PLATELET COUNT 267 x10^3/uL (140-400); RED BLOOD COUNT 3.81 x10^6/uL (3.50-5.40); RED CELL DISTRIBUTION WIDTH 14.5 % (11.5-14.5)
[2019-02-12 06:39] LABS: CALCIUM 8.6 mg/dL (8.5-10.1); CREATININE 0.7 mg/dL (0.6-1.0); GFR 80.1
[2019-02-12] MEDS: POTASSIUM CHLORIDE 20 MEQ TABLET.ER. PO SCH ×2 (07:34→09:36)
--- NOTE | 2019-02-12 08:27 | PDOC2 ---
RHIANNON KABA [employer] 02/12/19 0827: CARDIAC CONSULT DATE OF CONSULT Date Of Consult DATE: 02/12/19 TIME: 08:22 REASON FOR CONSULT Reason for Consult CHF REFERRING PHYSICIAN Referring Physician Dr. Julio SOURCE Source: Chart review, Patient HPI History of Present Illness This is an 83 yo female who presented secondary to shortness of breath. Has been short of breath for the last couple of days. Worse the day of arrival. Associated with orthopnea. No significant LE edema. No chest pain, palpitations, dizziness, diaphoresis, or nausea/vomiting. No recent illness/fevers. Does have a history of non-obstructive CAD, CHF, and PAFIB on Eliquis. Previously followed with Dr. Allen with [facility], but has not seen his in over 2 years as she has had any problems. PAST MEDICAL HISTORY Cardiovascular: AFIB (paroxysmal ), CAD, CHF, HTN, hyperipidemia Pulmonary: COPD CENTRAL NERVOUS SYSTEM: CVA GI: GERD Heme/Onc: Other (DVT) Psych: Anxiety, Depression Endocrine: Hypothyroidism PAST SURGICAL HISTORY Past Surgical History: Cataract Removal, Tonsillectomy, Hysterectomy, Other (stomach surgery ) FAMILY HISTORY Family History: Cancer (lung), Diabetes, Hypothyroidism SOCIAL HISTORY Smoke: Quit (many years ago) ALCOHOL: none Drugs: None Lives: Alone CURRENT MEDICATIONS Current Medications Current Medications Clonidine HCl (Catapres) 0.2 mg 1X ONCE PO Last administered on 02/11/19at 07:34; Start 02/11/19 at 07:00; Stop 02/11/19 at 07:01; Status DC Furosemide (Lasix) 40 mg 1X ONCE IVP Last administered on 02/11/19at 07:30; Start 02/11/19 at 07:00; Stop 02/11/19 at 07:01; Status DC Albuterol/ Ipratropium (Duoneb) 3 ml 1X ONCE NEB Last administered on 02/11/19at 07:26; Start 02/11/19 at 07:00; Stop 02/11/19 at 07:03; Status DC Sodium Chloride 1,000 ml @ 1,000 mls/hr 1X ONCE IV Last administered on 02/11/19at 10:46; Start 02/11/19 at 10:30; Stop 02/11/19 at 11:29; Status DC Ondansetron HCl (Zofran) 4 mg PRN Q4HRS PRN IV NAUSEA/VOMITING; Start 02/11/19 at 11:00; Stop 02/12/19 at 10:59 Albuterol/ Ipratropium (Duoneb) 3 ml RTQID NEB Last administered on 02/11/19at 16:03; Start 02/11/19 at 12:00; Stop 02/12/19 at 11:59 Potassium Chloride (Klor-Con) 40 meq Q2H PO Last administered on 02/12/19at 07:34; Start 02/12/19 at 07:30; Stop 02/12/19 at 09:31 Active Scripts Active Reported Hydrochlorothiazide 12.5 Mg Capsule 1 Tab PO DAILY Synthroid (Levothyroxine Sodium) 75 Mcg Tablet 1 Tab PO DAILY Nifedipine Er (Nifedipine) 30 Mg Tablet.er 30 Mg PO DAILY Clonidine Hcl 0.1 Mg Tablet 0.1 Mg PO PRN Q6HRS PRN TAKE WHEN SBP >180 Carvedilol 25 Mg Tablet 25 Mg PO BID NITROGLYCERIN SubLingual (Nitroglycerin) 0.4 Mg Tab.subl 0.4 Mg SL PRN Q5MIN PRN Eliquis (Apixaban) 5 Mg Tablet 5 Mg PO BID blood thinner last dose TODAY AT 9 AM next dose due TODAY AT 9 PM Pravachol (Pravastatin Sodium) 40 Mg Tablet 40 Mg PO QHS for high cholesterol last dose YESTERDAY WITH DINNER next dose TODAY WITH DINNER Zetia (Ezetimibe) 10 Mg Tablet 10 Mg PO HS for high cholesterol last dose YESTERDAY AT 9 PM next dose TODAY AT 9 PM Multi-Vitamin Daily (Multivitamin) 1 Each Tablet 1 Each PO DAILY supplement last dose TODAY AT 9 AM next dose TOMORROW AT 9 AM ALLERGIES Allergies: Coded Allergies: Penicillins (Verified Allergy, Intermediate, Hives, 06/09/13) TAKEN ROCEPHIN IN THE PAST PER RN INTERVIEW WITH PATIENT. alendronate sodium (Verified Allergy, Intermediate, 02/11/19) amlodipine besylate (Verified Allergy, Intermediate, Swelling, 06/09/13) carisoprodol (Verified Allergy, Intermediate, BREAK OUT, 02/09/14) break out. iodine (Verified Allergy, Intermediate, 08/04/13) nitrofurantoin (Verified Allergy, Intermediate, 08/04/13) sertraline HCl (Verified Allergy, Intermediate, Nausea, 02/10/14) spironolactone (Verified Allergy, Intermediate, 02/11/19) acetaminophen (Verified Allergy, Mild, Rash, 02/12/19) rash Influenza Virus Vaccines (Verified Allergy, Unknown, ANAPHYLAXIS, 09/18/15) ROS Review of Systems 14 point ROS conducted with pertinent positives noted above in HPI PHYSICAL EXAM General: Alert, Oriented X3, Cooperative, No acute distress HEENT: Atraumatic, Mucous membr. moist/pink Lungs: Other (bibasilar crackles ) Heart: Regular rate, Normal S1, Normal S2, Other (2/6 systolic murmur) Abdomen: Soft, No tenderness Extremities: Other (trace bilateral LE edema ) Skin: No breakdown Neuro: Normal speech, Sensation intact Psych/Mental Status: Mental status NL, Mood NL MUSCULOSKELETAL: Osteoarthritic changes both hands VITALS Vital Signs Vital Signs Date Time Temp Pulse Resp B/P (MAP) Pulse Ox O2 Delivery O2 Flow Rate FiO2 02/12/19 05:45 97.1 68 13 162/97 (118) 96 Room Air 02/11/19 13:27 2.5 LABS LABS Laboratory Tests Test 02/11/19 06:57 02/11/19 07:15 02/11/19 07:46 02/11/19 07:47 Blood Gas pH 7.25 (7.35-7.45) Blood Gas PCO2 61 mmHg (35-45) Blood Gas PO2 75 mmHg (71-100) Blood Gas HCO3 27 mmol/L (22-26) Arterial Bld O2 Saturation (Calc) 92 % (92-99) FiO2 100 % White Blood Count 12.6 x10^3/uL (4.0-11.0) Red Blood Count 4.57 x10^6/uL (3.50-5.40) Hemoglobin 14.5 g/dL (12.0-15.5) Hematocrit 43.4 % (36.0-47.0) Mean Corpuscular Volume 95 fL (79-100) Mean Corpuscular Hemoglobin 32 pg (25-35) Mean Corpuscular Hemoglobin Concent 33 g/dL (31-37) Red Cell Distribution Width 15.0 % (11.5-14.5) Platelet Count 406 x10^3/uL (140-400) Neutrophils (%) (Auto) 61 % (31-73) Lymphocytes (%) (Auto) 31 % (24-48) Monocytes (%) (Auto) 7 % (0-9) Eosinophils (%) (Auto) 1 % (0-3) Basophils (%) (Auto) 1 % (0-3) Neutrophils # (Auto) 7.6 x10^3uL (1.8-7.7) Lymphocytes # (Auto) 3.9 x10^3/uL (1.0-4.8) Monocytes # (Auto) 0.9 x10^3/uL (0.0-1.1) Eosinophils # (Auto) 0.1 x10^3/uL (0.0-0.7) Basophils # (Auto) 0.1 x10^3/uL (0.0-0.2) Sodium Level 132 mmol/L (136-145) Potassium Level 3.8 mmol/L (3.5-5.1) Chloride Level 96 mmol/L (98-107) Carbon Dioxide Level 24 mmol/L (21-32) Anion Gap 12 (6-14) Blood Urea Nitrogen 10 mg/dL (7-20) Creatinine 0.8 mg/dL (0.6-1.0) Estimated GFR (Cockcroft-Gault) 68.7 BUN/Creatinine Ratio 13 (6-20) Glucose Level 218 mg/dL (70-99) Lactic Acid Level 1.2 mmol/L (0.4-2.0) Calcium Level 8.6 mg/dL (8.5-10.1) Total Bilirubin 0.8 mg/dL (0.2-1.0) Aspartate Amino Transf (AST/SGOT) 31 U/L (15-37) Alanine Aminotransferase (ALT/SGPT) 14 U/L (14-59) Alkaline Phosphatase 76 U/L (46-116) Troponin I Quantitative < 0.017 ng/mL (0-0.055) VI-Hil-D-Type Natriuretic Peptide 1343 pg/mL (0-449) Total Protein 7.8 g/dL (6.4-8.2) Albumin 4.0 g/dL (3.4-5.0) Albumin/Globulin Ratio 1.1 (1.0-1.7) Influenza Type A (Rapid) Negative (NEGATIVE) Influenza Type B (Rapid) Negative (NEGATIVE) Urine Collection Type U cath Urine Color Yellow Urine Clarity Clear Urine pH 7.0 Urine Specific [place] 1.020 Urine Protein 100 mg/dl (NEG-TRACE) Urine Glucose (UA) 100 mg/dL (NEG) Urine Ketones (Stick) Neg mg/dL (NEG) Urine Blood Trace (NEG) Urine Nitrite Neg (NEG) Urine Bilirubin Neg (NEG) Urine Urobilinogen Dipstick 0.2 mg/dL (0.2 mg/dL) Urine Leukocyte Esterase Neg (NEG) Urine RBC 1-2 /HPF (0-2) Urine WBC 1-4 /HPF (0-4) Urine Squamous Epithelial Cells Occ /LPF Urine Bacteria 0 /HPF (0-FEW) Urine Hyaline Casts Mod /HPF Test 02/11/19 08:39 02/12/19 05:48 Blood Gas pH 7.40 (7.35-7.45) Blood Gas PCO2 37 mmHg (35-45) Blood Gas PO2 100 mmHg (71-100) Blood Gas HCO3 23 mmol/L (22-26) Arterial Bld O2 Saturation (Calc) 98 % (92-99) FiO2 36 % White Blood Count 7.0 x10^3/uL (4.0-11.0) Red Blood Count 3.81 x10^6/uL (3.50-5.40) Hemoglobin 12.3 g/dL (12.0-15.5) Hematocrit 35.6 % (36.0-47.0) Mean Corpuscular Volume 93 fL (79-100) Mean Corpuscular Hemoglobin 32 pg (25-35) Mean Corpuscular Hemoglobin Concent 35 g/dL (31-37) Red Cell Distribution Width 14.5 % (11.5-14.5) Platelet Count 267 x10^3/uL (140-400) Neutrophils (%) (Auto) 55 % (31-73) Lymphocytes (%) (Auto) 35 % (24-48) Monocytes (%) (Auto) 9 % (0-9) Eosinophils (%) (Auto) 2 % (0-3) Basophils (%) (Auto) 1 % (0-3) Neutrophils # (Auto) 3.9 x10^3uL (1.8-7.7) Lymphocytes # (Auto) 2.4 x10^3/uL (1.0-4.8) Monocytes # (Auto) 0.6 x10^3/uL (0.0-1.1) Eosinophils # (Auto) 0.1 x10^3/uL (0.0-0.7) Basophils # (Auto) 0.0 x10^3/uL (0.0-0.2) Sodium Level 131 mmol/L (136-145) Potassium Level 3.0 mmol/L (3.5-5.1) Chloride Level 94 mmol/L (98-107) Carbon Dioxide Level 27 mmol/L (21-32) Anion Gap 10 (6-14) Blood Urea Nitrogen 10 mg/dL (7-20) Creatinine 0.7 mg/dL (0.6-1.0) Estimated GFR (Cockcroft-Gault) 80.1 Glucose Level 99 mg/dL (70-99) Calcium Level 8.6 mg/dL (8.5-10.1) ECHOCARDIOGRAM Echocardiogram <Conclusion> The left ventricle is normal size. Left ventricle systolic function is normal. The Ejection Fraction is 55-60%. Calculated aortic valve area is 1.5 cm2 with maximum pressure gradient of 22 mmHg and mean pressure gradient of 13 mmHg. Doppler and color-flow analysis revealed mild aortic stenosis. Doppler and Color Flow revealed no significant aortic regurgitation. Doppler and Color Flow revealed moderate mitral regurgitation. Doppler and Color Flow revealed mild tricuspid regurgitation. The PA pressure was estimated at 27 mmHg. There is no evidence of significant pericardial effusion. DATE: 04/20/15 1610 HEART CATH Heart Cath 11/16/2015 Mild to moderate disease. No indication for PCI per [facility] records ASSESSMENT/PLAN Assessment/Plan 1. Acute respiratory failure secondary to CHF 2. Acute on chronic CHF; better compensated with diuresis 3. PAFIB; maintaining SR. on Eliquis for stroke prophylaxis 4. CAD; mild to moderate disease per cath 11/2015. Previously followed with Dr. Allen, but has not seen in > 2 years. 5. Accelerated hypertension; labile this morning 6. Hyperlipidemia 7. Hypokalemia 8. H/o DVT/PE 9. H/o CVA 10. Aortic stenosis, mild per echo 04/2015 Recommendations Mild diuresis Replace K Resume home antiHTN therapy Secondary prevention measures Lipid panel Echo to assess LV systolic function Outpatient ischemic evaluation unless echo significantly abnormal. KATIE PASTRANA MD 02/12/19 3867: CARDIAC CONSULT ASSESSMENT/PLAN Assessment/Plan Patient seen and examined. Agree with above nurse practitioner note. 83-year-old woman with multiple medical problems as noted above presents with exertional dyspnea in the setting of elevated blood pressures. She's had stressful events including the loss of her brother and due to some dis crepancy regarding her blood pressure medicines were she was on losartan and midodrine for presumed orthostatic hypertension she was off of both medications over the last 4 days. Currently she is in sinus rhythm with well-controlled blood pressure. Denies any dyspnea. She does have dizziness and gait instability due to related to her knee surgeries and diabetic neuropathy We will initiate her on hydralazine 25 mg 3 times a day in an effort to control her blood pressure a little easier due to her lability. 3 times a day dosing will allow her to take hydralazine as needed. Echocardiogram was grossly unremarkable. Supportive care from a cardiac standpoint. She has stress test earlier this year which did not reveal any significant obstructive pathology. RHIANNON KABA APRN Feb 12, 2019 08:27 KATIE PASTRANA MD Feb 12, 2019 17:45
[2019-02-12] MEDS ORDERED: cloNIDine HCL 0.1 MG TABLET PO PRN (09:15)
[2019-02-12] MEDS: hydroCHLOROthiazide 12.5 MG CAPSULE PO SCH (09:34)
[2019-02-12] MEDS: MULTIVITAMIN with MINERAL TABLET. PO SCH (09:34)
[2019-02-12] MEDS: CARVEDILOL 12.5 MG TABLET PO SCH ×2 (09:34→18:45)
[2019-02-12] MEDS: LEVOTHYROXINE 75 MCG TABLET PO SCH (09:35)
[2019-02-12] MEDS: APIXABAN 5 MG TABLET. PO SCH ×2 (09:35→20:13)
[2019-02-12] MEDS: ASPIRIN ENTERIC COATED 81 MG TABLET.DR. PO SCH (09:44)
[2019-02-12] MEDS ORDERED: FUROSEMIDE 20 MG/2 ML VIAL IVP ONE (09:45)
--- NOTE | 2019-02-12 09:49 | NUR ---
Cardiology here this AM, morning medications continued. Echocardiogram ordered, awaiting for tech. Patient feeling much better then yesterday but states that she is starting to have a headache due to elevated BP. Cardiology aware.
[2019-02-12] MEDS ORDERED: ACETAMINOPHEN 500 MG TABLET PO PRN (11:00)
[2019-02-12 14:09] LABS: THYROID STIM HORMONE (TSH) 7.31 uIU/mL (0.358-3.740)
--- NOTE | 2019-02-12 14:51 | CARD ---
MR#: [id number] Date of Study: 02/12/2019 Ordering Physician: KATIE PASTRANA, Referring Physician: KATIE PASTRANA, Tech: Malissa Fitch [facility] APPROVED REPORT EXAM: Two-dimensional and M-mode echocardiogram with Doppler and color Doppler. Other Information Quality : AverageHR: 60bpm Rhythm : NSR INDICATION Congestive Heart Failure 2D DIMENSIONS RVDd2.0 (2.9-3.5cm)Left Atrium(2D)3.5 (1.6-4.0cm) IVSd1.2 (0.7-1.1cm)Aortic Root(2D)2.6 (2.0-3.7cm) LVDd4.2 (3.9-5.9cm)PWd1.0 (0.7-1.1cm) LVDs3.1 (2.5-4.0cm)FS (%) 27.8 % SV43.4 mlLVEF(%)54.3 (>50%) M-Mode DIMENSIONS Left Atrium(MM)3.43 (2.5-4.0cm)Aortic Root2.95 (2.2-3.7cm) Aortic Valve AoV Peak Fredi.221.4cm/sAoV VTI52.5cm AO Peak GR.19.6mmHgAO Mean GR.12mmHg MAE (VTI)1.07cm2 Mitral Valve MV E Jvshmirr651.8cm/sMV E Peak Gr.108mmHg MV DECEL [id number] A Bqtluofm89.2cm/s E/A Ratio2.7MV A Riggftrn26ik Tricuspid Valve TR P. Ofyowfpa870dt/sRAP YMZFVHPD1zfYx TR Peak Gr.35aeVhIVPN88oyEl LEFT VENTRICLE The left ventricle is normal size. Proximal septal thickening is noted. The left ventricular systolic function is normal. The Ejection Fraction is 55-60%. There is normal LV segmental wall motion. Trans mitral Doppler flow pattern is Grade III-reversible restrictive diastolic dysfunction. RIGHT VENTRICLE The right ventricle is normal size. There is normal right ventricular wall thickness. The right ventr icular systolic function is normal. ATRIA The left atrium size is normal. The right atrium size is normal. The interatrial septum is intact wit h no evidence for an atrial septal defect or patent foramen ovale as noted on 2-D or Doppler imaging. AORTIC VALVE The aortic valve is moderately to severely calcified. The aortic valve is trileaflet. Doppler and Col or Flow revealed no significant aortic regurgitation. There is mild valvular aortic stenosis. Maximum pressure gradient of 20 mmHg and mean pressure gradient of 12 mmHg. MITRAL VALVE Mitral annular calcification is mild to moderate. There is no evidence of mitral valve prolapse. Ther e is no mitral valve stenosis. Doppler and Color-flow revealed mild to moderate mitral regurgitation. TRICUSPID VALVE The tricuspid valve is normal in structure and function. Doppler and Color Flow revealed mild tricusp id regurgitation. The PA pressure was estimated at 37 mmHg. There is no tricuspid valve prolapse or v egetation. There is no tricuspid valve stenosis. PULMONIC VALVE The pulmonic valve is not well visualized. GREAT VESSELS The aortic root is normal in size. The ascending aorta is normal in size. The IVC is normal in size a nd collapses >50% with inspiration. PERICARDIAL EFFUSION There is no evidence of significant pericardial effusion. Critical Notification Critical Value: No <Conclusion> The left ventricular systolic function is normal. The Ejection Fraction is 55-60%. There is normal LV segmental wall motion. Transmitral Doppler flow pattern is Grade III-reversible restrictive diastolic dysfunction. There is mild valvular aortic stenosis. Mild to moderate mitral regurgitation. Mild tricuspid regurgitation. The PA pressure was estimated at 37 mmHg. There is no evidence of significant pericardial effusion. Signed by : Sha Keenan, Electronically Approved : 02/12/2019 14:50:59
--- NOTE | 2019-02-12 19:57 | PN ---
DATE: SUBJECTIVE: An 83-year-old female with acute on top of chronic diastolic heart failure. The patient is resting fairly comfortably. She is still very weak this morning. She was somewhat better yesterday; however, she has turned worse this morning with increased shortness of breath. The patient has had a history of paroxysmal atrial fibrillation and the like we are diuresing her and giving her aggressive toilet. Cardiology has reviewed the patient and will make further assessment on her as indicated along with Cardiology. I believe an echocardiogram has been ordered and we will make further evaluation on her as her ejection fraction is around 55-60%. IMPRESSION: Acute on top of chronic respiratory failure secondary to congestive heart failure, acute on chronic congestive heart failure, paroxysmal atrial fibrillation, coronary artery disease, accelerated hypertension, hyperlipidemia, hypokalemia, deep vein thrombosis, history of chronic obstructive pulmonary disease, chronic emphysema from history of smoking. The patient has been encouraged to stop smoking. OBJECTIVE: LUNGS: Otherwise, the patient's lungs were diminished, some crackles in the bases. CARDIOVASCULAR: Irregularly irregular. ABDOMEN: Soft. EXTREMITIES: Just trace edema. PLAN: Continue to monitor the patient accordingly and make further evaluation on her per cardiology's consultation. MARYA MAJOR MD DR: ALYSSA/maryann JOB#: [id number] / [id number]
[2019-02-12] MEDS ORDERED: ATORVASTATIN CALCIUM 10 MG TABLET. PO SCH (21:00)
[2019-02-12] MEDS ORDERED: EZETIMIBE 10 MG TABLET PO SCH (21:00)
[2019-02-13] MEDS: LEVOTHYROXINE 75 MCG TABLET PO SCH (05:41)
[2019-02-13 05:56] VITALS: BP 128/59
--- NOTE | 2019-02-13 06:02 | NUR ---
Shift Note: Pt is a/o x4, pt does have increased confusion at HS, requires reorientation. VSS. No c/o pain or n/v at this time. IV is saline locked. Pt voiding clear yellow urine. Pt has expressed the desire to go home today.
[2019-02-13] MEDS: APIXABAN 5 MG TABLET. PO SCH (08:03)
[2019-02-13] MEDS: CARVEDILOL 12.5 MG TABLET PO SCH (08:03)
[2019-02-13] MEDS: MULTIVITAMIN with MINERAL TABLET. PO SCH (08:03)
[2019-02-13] MEDS: ASPIRIN ENTERIC COATED 81 MG TABLET.DR. PO SCH (08:03)
[2019-02-13] MEDS: hydroCHLOROthiazide 12.5 MG CAPSULE PO SCH (08:03)
[2019-02-13 08:09] LABS: BASO # 0.1 x10^3/uL (0.0-0.2); BASO % 1 % (0-3); EOS # 0.1 x10^3/uL (0.0-0.7); EOS % 1 % (0-3); HEMATOCRIT 37.9 % (36.0-47.0); HEMOGLOBIN 13.1 g/dL (12.0-15.5); LYMPH # 2.6 x10^3/uL (1.0-4.8); LYMPH % 26 % (24-48); MEAN CORPUSCULAR HEMOGLOBIN 32 pg (25-35); MEAN CORPUSCULAR HGB CONC 35 g/dL (31-37); MEAN CORPUSCULAR VOLUME 94 fL (79-100); MONO # 0.7 x10^3/uL (0.0-1.1); MONO % 8 % (0-9); NEUT # 6.2 x10^3uL (1.8-7.7); NEUT % 64 % (31-73); PLATELET COUNT 310 x10^3/uL (140-400); RED BLOOD COUNT 4.04 x10^6/uL (3.50-5.40); RED CELL DISTRIBUTION WIDTH 14.5 % (11.5-14.5); WHITE BLOOD COUNT 9.7 x10^3/uL (4.0-11.0)
[2019-02-13 08:24] LABS: ALBUMIN 4.1 g/dL (3.4-5.0); ALBUMIN/GLOBULIN RATIO 1.1 (1.0-1.7); CALCIUM 9.1 mg/dL (8.5-10.1); CREATININE 0.7 mg/dL (0.6-1.0); GFR 80.1; POTASSIUM 3.9 mmol/L (3.5-5.1); TOTAL BILIRUBIN 0.9 mg/dL (0.2-1.0); TOTAL PROTEIN 7.8 g/dL (6.4-8.2)
--- NOTE | 2019-02-13 08:36 | PDOC ---
CARDIO Progress Notes Date & Time Date of Service DATE: 02/13/19 TIME: 08:33 Time of Evaluation 08:33 Subjective Notes Feeling well today, ready to go home Vitals Vitals Vital Signs Date Time Temp Pulse Resp B/P (MAP) Pulse Ox O2 Delivery O2 Flow Rate FiO2 02/13/19 08:03 80 02/13/19 08:00 Room Air 02/13/19 05:56 97.9 16 128/59 (82) 97 02/11/19 13:27 2.5 Weight Weight [ ] Input and Output I.O. Intake and Output 02/13/19 07:00 Intake Total 520 ml Output Total 1030 ml Balance -510 ml Intake Oral 520 ml Output Urine Total 1030 ml # Voids 3 Laboratory Labs Laboratory Tests Test 02/11/19 08:39 02/12/19 05:48 Blood Gas pH 7.40 (7.35-7.45) Blood Gas PCO2 37 mmHg (35-45) Blood Gas PO2 100 mmHg (71-100) Blood Gas HCO3 23 mmol/L (22-26) Arterial Bld O2 Saturation (Calc) 98 % (92-99) FiO2 36 % White Blood Count 7.0 x10^3/uL (4.0-11.0) Red Blood Count 3.81 x10^6/uL (3.50-5.40) Hemoglobin 12.3 g/dL (12.0-15.5) Hematocrit 35.6 % (36.0-47.0) Mean Corpuscular Volume 93 fL (79-100) Mean Corpuscular Hemoglobin 32 pg (25-35) Mean Corpuscular Hemoglobin Concent 35 g/dL (31-37) Red Cell Distribution Width 14.5 % (11.5-14.5) Platelet Count 267 x10^3/uL (140-400) Neutrophils (%) (Auto) 55 % (31-73) Lymphocytes (%) (Auto) 35 % (24-48) Monocytes (%) (Auto) 9 % (0-9) Eosinophils (%) (Auto) 2 % (0-3) Basophils (%) (Auto) 1 % (0-3) Neutrophils # (Auto) 3.9 x10^3uL (1.8-7.7) Lymphocytes # (Auto) 2.4 x10^3/uL (1.0-4.8) Monocytes # (Auto) 0.6 x10^3/uL (0.0-1.1) Eosinophils # (Auto) 0.1 x10^3/uL (0.0-0.7) Basophils # (Auto) 0.0 x10^3/uL (0.0-0.2) Sodium Level 131 mmol/L (136-145) Potassium Level 3.0 mmol/L (3.5-5.1) Chloride Level 94 mmol/L (98-107) Carbon Dioxide Level 27 mmol/L (21-32) Anion Gap 10 (6-14) Blood Urea Nitrogen 10 mg/dL (7-20) Creatinine 0.7 mg/dL (0.6-1.0) Estimated GFR (Cockcroft-Gault) 80.1 Glucose Level 99 mg/dL (70-99) Calcium Level 8.6 mg/dL (8.5-10.1) Magnesium Level 1.8 mg/dL (1.8-2.4) Triglycerides Level 96 mg/dL (0-150) Cholesterol Level 168 mg/dL (0-200) LDL Cholesterol, Calculated 84 mg/dL (0-100) VLDL Cholesterol, Calculated 19 mg/dL (0-40) Non-HDL Cholesterol Calculated 103 mg/dL (0-129) HDL Cholesterol 65 mg/dL (40-60) Cholesterol/HDL Ratio 2.0 Thyroid Stimulating Hormone (TSH) 7.310 uIU/mL (0.358-3.740) Microbiology Micro Microbiology 02/11/19 Blood Culture - Preliminary, Resulted NO GROWTH AFTER 2 DAYS... Physical Exams HEENT: Neck Supple W Full Motion Chest: Symmetric Lungs: Clear to Auscultation Heart: S1S2, RRR Abdomen: Soft N/T Extremities: No Edema Neurology: alert, oriented, follow commands Assessment Assessment 1. Acute respiratory failure secondary to CHF 2. Acute on chronic diastolic CHF; Echo with preserved LV systolic function. Clinically compensated 3. PAFIB; maintaining SR. on Eliquis for stroke prophylaxis 4. CAD; mild to moderate disease per cath 11/2015. Stress test earlier this year without evidence of ischemia 5. Accelerated hypertension; now well-controlled 6. Hyperlipidemia; LDL 84 Recommendations Continue current medical therapy Lasix PRN 2Gm Na diet May discharge from a CV standpoint and f/u in our off with Dr. Cochran in 2 months. RHIANNON KABA APRN Feb 13, 2019 08:36
--- NOTE | 2019-02-13 10:04 | NUR ---
Pt being discharged to home. PT is able to verbalize understanding of discharge instruction and medications. PT packed up belongings including wig. PT left via WC with friend driving. Liz RUEDA
[2019-02-13 11:13] LABS: % ATYL 12 % (0-0); % BANDS 1 % (0-9); % LYMPHS 13 % (24-48); % MONOS 9 % (0-10); % SEGS 65 % (35-66)
[2019-02-13 11:15] LABS: PLT ESTIMATE ADEQUATE (ADEQUATE)
--- NOTE | 2019-02-13 16:05 | DS ---
DATE OF DISCHARGE: HOSPITAL COURSE: The patient is an 83-year-old female who came in through the Emergency Room with increased shortness of breath, apparently needed 15 liters on a nonrebreather to bring her up to 92%. The patient apparently had gone into respiratory distress. The patient was also seen by Cardiology and was diagnosed with heart failure. The patient has paroxysmal atrial fibrillation. The patient made good progress with diuresis and pulmonary treatment. The patient will be continued to be monitored as an outpatient. She will follow up with her commissary steward at home. [facility]. At any case, the patient had a CT of the chest and the patient will continue to be monitored as an outpatient on this situation. IMPRESSION: Acute on top of chronic diastolic heart failure, acute respiratory failure secondary to congestive heart failure, paroxysmal atrial fibrillation, coronary artery disease, had a recent stress test earlier this year without evidence of ischemia or accelerated hypertension, well controlled. Hyperlipidemia, LDL under good control of 84. MARYA MAJOR MD DR: ALYSSA/maryann JOB#: [id number] / [id number]
== END 2019-02-13 10:15 | disposition home or self-care (01) | DRG 291 ==
LOC: ER 06:30 → ICU 09:00
PROVIDERS: ADMIT Family Medicine; ATTEND Family Medicine
DX: I11.0 Hypertensive heart disease with heart failure (principal); J96.21 Acute and chronic respiratory failure with hypoxia; J96.22 Acute and chronic respiratory failure with hypercapnia; I50.33 Acute on chronic diastolic (congestive) heart failure; I48.0 Paroxysmal atrial fibrillation; J43.9 Emphysema, unspecified; F17.200 Nicotine dependence, unspecified, uncomplicated; Z66 Do not resuscitate; E78.00 Pure hypercholesterolemia, unspecified; E03.9 Hypothyroidism, unspecified; F41.9 Anxiety disorder, unspecified; F32.9 Major depressive disorder, single episode, unspecified; E78.5 Hyperlipidemia, unspecified; I25.10 Atherosclerotic heart disease of native coronary artery without angina pectoris; K21.9 Gastro-esophageal reflux disease without esophagitis; I35.0 Nonrheumatic aortic (valve) stenosis; E11.40 Type 2 diabetes mellitus with diabetic neuropathy, unspecified; E87.6 Hypokalemia; Z88.0 Allergy status to penicillin; Z88.7 Allergy status to serum and vaccine; Z88.8 Allergy status to other drugs, medicaments and biological substances; Z88.6 Allergy status to analgesic agent; Z91.041 Radiographic dye allergy status; Z90.710 Acquired absence of both cervix and uterus; I25.2 Old myocardial infarction; Z79.899 Other long term (current) drug therapy; Z86.718 Personal history of other venous thrombosis and embolism; Z83.3 Family history of diabetes mellitus; Z82.0 Family history of epilepsy and other diseases of the nervous system; Z80.1 Family history of malignant neoplasm of trachea, bronchus and lung; Z87.19 Personal history of other diseases of the digestive system; Z86.73 Personal history of transient ischemic attack (TIA), and cerebral infarction without residual deficits; Z86.711 Personal history of pulmonary embolism
CPT/HCPCS: 36415; 71045; 71250; 80048; 80053; 80061; 81001; 82803; 83605; 83735; 83880; 84443; 84484; 85007; 85025; 87040; 87804; 93005; 93306; 94640; 96374; J1940; J7620; 99291-25; J7030

== ENCOUNTER 2020-01-01 16:46 | Inpatient (IN) | payer MEDICARE, OTHER ==
[~2020-01-01] VITALS: Ht 170.2 cm; Wt 68.5 kg
[~2020-01-01 16:46] MED LIST changes: +HYDR12.59 PO
--- NOTE | 2020-01-01 16:53 | PHYS DOC ---
Past History Past Medical History: No Pertinent History, Hypertension, DC, Stroke Past Surgical History: No Surgical History, Hysterectomy Smoking: Cigarettes, Less than 1pk/day Alcohol Use: None Drug Use: None General Adult EDM: Chief Complaint: HYPERTENSION HPI: HPI: The history was obtained from the patient and EMS. Patient is a 84-year-old female with PMH dementia, nonobstructive coronary artery disease, CHF, paroxysmal A. fib who presents with a chief complaint of lightheadedness. Per EMS they were called the patient's house by the patient son for concerns of lightheadedness associated with elevated blood pressure. EMS states on arrival her systolic blood pressure was 190. Patient has no complaints to me. She states he has no chest pain or shortness of breath. Denies orthopnea or bendopnea. Denies lower extremity swelling. Denies any lightheadedness or feelings of near syncope. Denies any vertigo. Denies any headache or neck pain. Denies fevers or cough. States she has been taking her medications as prescribed. States she lives at home with her son. Patient has no complaints. Review of Systems: Review of Systems: Constitutional: Denies fever or chills Eyes: Denies change in visual acuity HENT: Denies nasal congestion or sore throat Respiratory: Denies cough or shortness of breath Cardiovascular: Positive for lightheadedness GI: Denies abdominal pain, nausea, vomiting, bloody stools or diarrhea : Denies dysuria Musculoskeletal: Denies back pain or joint pain Integument: Denies rash Neurologic: Denies headache, focal weakness or sensory changes Endocrine: Denies polyuria or polydipsia Lymphatic: Denies swollen glands Psychiatric: Denies depression or anxiety Heart Score: Risk Factors: Risk Factors: DM, Current or recent (<one month) smoker, HTN, HLP, family history of CAD, obesity. Risk Scores: Score 0 - 3: 2.5% MACE over next 6 weeks - Discharge Home Score 4 - 6: 20.3% MACE over next 6 weeks - Admit for Clinical Observation Score 7 - 10: 72.7% MACE over next 6 weeks - Early Invasive Strategies Allergies: Allergies: Allergies Coded Allergies Type Severity Reaction Last Updated Verified Penicillins Allergy Intermediate Hives 06/09/13 Yes alendronate sodium Allergy Intermediate 02/11/19 Yes amlodipine besylate Allergy Intermediate Swelling 06/09/13 Yes carisoprodol Allergy Intermediate BREAK OUT 02/09/14 Yes iodine Allergy Intermediate 08/04/13 Yes nitrofurantoin Allergy Intermediate 08/04/13 Yes sertraline HCl Allergy Intermediate Nausea 02/10/14 Yes spironolactone Allergy Intermediate 02/11/19 Yes acetaminophen Allergy Mild Rash 02/12/19 Yes Influenza Virus Vaccines Allergy Unknown ANAPHYLAXIS 09/18/15 Yes Physical Exam: PE: Constitutional: Well developed, well nourished, no acute distress, non-toxic appearance. [] HENT: Normocephalic, atraumatic, bilateral external ears normal, oropharynx moist, no oral exudates, nose normal. [] Eyes: PERRLA, EOMI, conjunctiva normal, no discharge. [] Neck: Normal range of motion, no tenderness, supple, no stridor. [] Cardiovascular:Heart rate regular rhythm, no murmur [] Lungs & Thorax: Bilateral breath sounds clear to auscultation [] Abdomen: soft, no tenderness, no masses, no pulsatile masses. [] Skin: Warm, dry, no erythema, no rash. [] Back: No tenderness, no CVA tenderness. [] Extremities: No tenderness, no cyanosis, no clubbing, ROM intact, no edema. [] Neurologic: Alert with intact cognitive function. No aphasia, dysarthria, or neglect. GCS 15. Pupils 3 mm briskly reactive b/l. No APD present. Cranial nerves 2-12 grossly intact; no facial asymmetry present, tongue midline, shoulder shrugging strength intact. Strength 5/5 and symmetric throughout. Light touch sensation intact throughout. Cerebellar testing appropriate without evidence of dysdiadochokinesia. DTR's 2+ in all 4 extremities. Negative pronator drift bilaterally. Gait normal Psychologic: Affect normal, judgement normal, mood normal. [] Current Patient Data: Labs: Laboratory Tests Test 01/01/20 17:03 White Blood Count 7.4 x10^3/uL Red Blood Count 4.16 x10^6/uL Hemoglobin 13.6 g/dL Hematocrit 39.3 % Mean Corpuscular Volume 94 fL Mean Corpuscular Hemoglobin 33 pg Mean Corpuscular Hemoglobin Concent 35 g/dL Red Cell Distribution Width 13.5 % Platelet Count 292 x10^3/uL Neutrophils (%) (Auto) 58 % Lymphocytes (%) (Auto) 30 % Monocytes (%) (Auto) 10 % Eosinophils (%) (Auto) 1 % Basophils (%) (Auto) 1 % Neutrophils # (Auto) 4.3 x10^3uL Lymphocytes # (Auto) 2.2 x10^3/uL Monocytes # (Auto) 0.8 x10^3/uL Eosinophils # (Auto) 0.1 x10^3/uL Basophils # (Auto) 0.0 x10^3/uL Prothrombin Time 10.9 SEC Prothromb Time International Ratio 1.1 Activated Partial Thromboplast Time 30 SEC Sodium Level 118 mmol/L Potassium Level 3.9 mmol/L Chloride Level 82 mmol/L Carbon Dioxide Level 26 mmol/L Anion Gap 10 Blood Urea Nitrogen 10 mg/dL Creatinine 0.8 mg/dL Estimated GFR (Cockcroft-Gault) 68.5 Glucose Level 123 mg/dL Calcium Level 9.5 mg/dL Troponin I Quantitative < 0.017 ng/mL MP-Dwr-V-Type Natriuretic Peptide 786 pg/mL Vital Signs: Vital Signs Date Time Temp Pulse Resp B/P (MAP) Pulse Ox O2 Delivery O2 Flow Rate FiO2 01/01/20 16:47 98.2 85 16 154/75 (101) 98 Room Air EKG: EKG: EKG consistent with normal sinus rhythm. Ventricular rate of 76 bpm. Left axis noted. Intervals normal. No acute ischemic changes appreciated. [] Radiology/Procedures: Radiology/Procedures: [place] [address] IMAGING REPORT Signed PATIENT: AGNIESZKA MOSS EACCOUNT: [id number] : 1935 LOCATION: ER AGE: 84 SEX: F EXAM STATUS: REG ER ORD. PHYSICIAN: JF BRADSHAW DO REASON: lightheaded with PIERRE PROCEDURE: CT HEAD WO CONTRAST PQRS Compliance Statement: One or more of the following individualized dose reduction techniques were utilized for this examination: 1. Automated exposure control 2. Adjustment of the mA and/or kV according to patient size 3. Use of iterative reconstruction technique CT HEAD WITHOUT CONTRAST History: Reason: lightheaded with PIERRE / Spl. Instructions: / History: Comparison: CT head without contrast February 01, 2019. Technique: Axial images are obtained of the head from the skull base through the vertex without IV contrast. Findings: No mass-effect, midline shift, extra-axial fluid collection, hemorrhage, or obvious acute infarction is identified. Basilar cisterns are patent. Old infarct left cerebellum. The ventricles and sulci are prominent, consistent with age-related cerebral atrophy. Incidental cavum. There is severe periventricular and subcortical white matter hypoattenuation. This is a nonspecific finding but is commonly due to chronic small vessel ischemic disease. Bone windows demonstrate no acute calvarial abnormality. The visualized paranasal sinuses are clear. Mastoid air cells are well aerated. IMPRESSION: 1. No acute intracranial abnormality. 2. Generalized cerebral atrophy. 3. Severe periventricular and subcortical white matter changes probably due to chronic small vessel ischemic disease. Electronically signed by: Bharat Jones MD (01/01/2020 5:39 PM) [facility] DI[facility]ATED AND SIGNED BY: BHARAT JONES MD DATE: 01/01/201738 CC: MARYA MAJOR MD; JF BRADSHAW DO ~ [place] [address] IMAGING REPORT Signed PATIENT: AGNIESZKA MOSS EACCOUNT: [id number] : 1935 LOCATION: ER AGE: 84 SEX: F EXAM STATUS: REG ER ORD. PHYSICIAN: JF BRADSHAW DO REASON: lightheaded PROCEDURE: CHEST AP ONLY CHEST AP ONLY Clinical Indication: Reason: lightheaded / Spl. Instructions: / History: Comparison: AP chest, February 11, 2019. Findings: Atherosclerotic aortic arch. The cardiomediastinal silhouette is normal. Right hilar opacity has resolved. Lungs are clear. Lungs are hyperexpanded. Upper lung emphysema. There is no pneumothorax. No pleural effusion is appreciated. No acute bone abnormality. IMPRESSION: 1. No acute cardiopulmonary process. 2. COPD. Electronically signed by: Bharat Jones MD (01/01/2020 5:33 PM) [facility] DI[facility]ATED AND SIGNED BY: BHARAT JONES MD DATE: 01/01/201732 CC: MARYA MAJOR MD; JF BRADSHAW DO ~ [] Course & Med Decision Making: Course & Med Decision Making Pertinent Labs and Imaging studies reviewed. (See chart for details) [] Patient is a very pleasant 84-year-old female who presents with chief complaint of lightheadedness associated with elevated blood pressure. Upon my initial examination she denies any physical complaints. She does appear to be pleasantly demented and is oriented only to person and place. This is her reported baseline. CT head imaging unremarkable. Electrolytes do show significant hyponatremia with a sodium level of 118. Clinically the patient does not appear edematous. Low suspicion for hypervolemic hyponatremia. She will be started with gentle fluid resuscitation. She has remained clinically stable while in the emergency department. No signs of seizures or altered mentation. Patient will require hospitalization. Signout given to Dr. Major. Carleen Disclaimer: Carleen Disclaimer: This electronic medical record was generated, in whole or in part, using a voice recognition dictation system. Departure Departure: Impression: Primary Impression: Hyponatremia Disposition: ADMITTED INPATIENT Condition: STABLE Referrals: MARYA MAJOR MD (PCP) Justification of Admission: Justification of Admission: Justification of Admission Dx: Yes Chronic Renal Failure: Electrolyte Abnormality JF BRADSHAW DO Jan 01, 2020 16:53
--- NOTE | 2020-01-01 17:19 | EKG ---
[address] [address] Test Date: 2020-01-01 Test Time: 17:06:39 Pat Name: AGNIESZKA MOSS Department: Room: Gender: F Dish Stacker: ROSA : 1935 Requested By: JF BRADSHAW Order Number: [id number] Reading MD: Sha Keenan Measurements Intervals Grahn Rate: 76 P: -90 AK: 206 QRS: -2 QRSD: 92 T: 21 QT: 406 QTc: 461 Interpretive Statements SINUS RHYTHM LEFTWARD AXIS Electronically Signed On 01-07-2020 12:55:37 CDT by Sha Keenan
[2020-01-01 17:29] LABS: BASO % 1 % (0-3); EOS # 0.1 x10^3/uL (0.0-0.7); EOS % 1 % (0-3); HEMATOCRIT 39.3 % (36.0-47.0); HEMOGLOBIN 13.6 g/dL (12.0-15.5); LYMPH # 2.2 x10^3/uL (1.0-4.8); LYMPH % 30 % (24-48); MEAN CORPUSCULAR HEMOGLOBIN 33 pg (25-35); MEAN CORPUSCULAR HGB CONC 35 g/dL (31-37); MEAN CORPUSCULAR VOLUME 94 fL (79-100); MONO # 0.8 x10^3/uL (0.0-1.1); MONO % 10 % (0-9); NEUT # 4.3 x10^3uL (1.8-7.7); NEUT % 58 % (31-73); PLATELET COUNT 292 x10^3/uL (140-400); RED BLOOD COUNT 4.16 x10^6/uL (3.50-5.40); RED CELL DISTRIBUTION WIDTH 13.5 % (11.5-14.5); WHITE BLOOD COUNT 7.4 x10^3/uL (4.0-11.0)
--- NOTE | 2020-01-01 17:35 | RAD ---
CHEST AP ONLY Clinical Indication: Reason: lightheaded / Spl. Instructions: / History: Comparison: AP chest, February 11, 2019. Findings: Atherosclerotic aortic arch. The cardiomediastinal silhouette is normal. Right hilar opacity has resolved. Lungs are clear. Lungs are hyperexpanded. Upper lung emphysema. There is no pneumothorax. No pleural effusion is appreciated. No acute bone abnormality. IMPRESSION: 1. No acute cardiopulmonary process. 2. COPD. Electronically signed by: Bharat Jones MD (01/01/2020 5:33 PM) [facility]
--- NOTE | 2020-01-01 17:42 | RAD ---
PQRS Compliance Statement: One or more of the following individualized dose reduction techniques were utilized for this examination: 1. Automated exposure control 2. Adjustment of the mA and/or kV according to patient size 3. Use of iterative reconstruction technique CT HEAD WITHOUT CONTRAST History: Reason: lightheaded with PIERRE / Spl. Instructions: / History: Comparison: CT head without contrast February 01, 2019. Technique: Axial images are obtained of the head from the skull base through the vertex without IV contrast. Findings: No mass-effect, midline shift, extra-axial fluid collection, hemorrhage, or obvious acute infarction is identified. Basilar cisterns are patent. Old infarct left cerebellum. The ventricles and sulci are prominent, consistent with age-related cerebral atrophy. Incidental cavum. There is severe periventricular and subcortical white matter hypoattenuation. This is a nonspecific finding but is commonly due to chronic small vessel ischemic disease. Bone windows demonstrate no acute calvarial abnormality. The visualized paranasal sinuses are clear. Mastoid air cells are well aerated. IMPRESSION: 1. No acute intracranial abnormality. 2. Generalized cerebral atrophy. 3. Severe periventricular and subcortical white matter changes probably due to chronic small vessel ischemic disease. Electronically signed by: Bharat Jones MD (01/01/2020 5:39 PM) [facility]
[2020-01-01 17:43] LABS: CALCIUM 9.5 mg/dL (8.5-10.1); CREATININE 0.8 mg/dL (0.6-1.0); GFR 68.5; POTASSIUM 3.9 mmol/L (3.5-5.1)
[2020-01-01] MEDS ORDERED: IV NORMAL SALINE 1,000ML 1,000 ML IV ONE (18:00)
[2020-01-01 18:10] LABS: BACTERIA,URINE 0 /HPF (0-FEW); BILIRUBIN,URINE NEG (NEG); CLARITY,URINE CLEAR; COLOR,URINE STRAW; GLUCOSE,URINE NEG (NEG); NITRITE,URINE NEG (NEG); RBC,URINE 0 /HPF (0-2); SQUAMOUS EPITHELIAL CELL,UR OCC /LPF; UROBILINOGEN,URINE 0.2 mg/dL (0.2 mg/dL); WBC,URINE 0 /HPF (0-4)
[2020-01-01] MEDS ORDERED: TRAM50TA PO (20:51)
[2020-01-01] MEDS ORDERED: MEMA10TA56 PO (20:51)
[2020-01-01 22:05] VITALS: BP 99/72
--- NOTE | 2020-01-01 22:05 | NUR ---
Pt admitted from ER to ICU bed [facility], accompanied by EMS and nursing staff. Pt transferred from gurney to bed x1 assist, unsteady gait noted. Admission assessment completed. Health history and home medications reviewed with pt, pt with hx of dementia and unsure of exact medications stating "I take 1 or 2 or even 3 blood pressure pills." Pt here for c/o dizziness stating that "Trump got me all upset..that dirty bastard!" POC reviewed with pt, understanding verbalized but need frequents reminders and reenforcement. Pt placed on Telemetry, SR to Carlos noted on monitor. Pt on Eliquis for VTE. Pt with allergy fro Flu vaccine. Pt lives at home with her son and dog. Pt was given written information regarding hospital policies, unit procedures and contact persons. Valuables were checked and and left at bedside per her request. Pt given box lunch for HS snack. Denture care performed. Bed alarm on.
[2020-01-01] MEDS: IV NORMAL SALINE 1,000ML 1,000 ML IV SCH (22:33)
[2020-01-01 23:35] VITALS: BP 95/40
[2020-01-02] VITALS (13 sets, daily range): BP systolic 102–186; BP diastolic 48–94
[2020-01-02 06:56] LABS: BASO % 0 % (0-3); EOS # 0.1 x10^3/uL (0.0-0.7); EOS % 2 % (0-3); HEMATOCRIT 35.3 % (36.0-47.0); HEMOGLOBIN 11.9 g/dL (12.0-15.5); LYMPH # 2.5 x10^3/uL (1.0-4.8); LYMPH % 42 % (24-48); MEAN CORPUSCULAR HEMOGLOBIN 32 pg (25-35); MEAN CORPUSCULAR HGB CONC 34 g/dL (31-37); MEAN CORPUSCULAR VOLUME 96 fL (79-100); MONO # 0.7 x10^3/uL (0.0-1.1); MONO % 13 % (0-9); NEUT # 2.5 x10^3uL (1.8-7.7); NEUT % 43 % (31-73); PLATELET COUNT 252 x10^3/uL (140-400); RED BLOOD COUNT 3.68 x10^6/uL (3.50-5.40); RED CELL DISTRIBUTION WIDTH 13.7 % (11.5-14.5); WHITE BLOOD COUNT 5.9 x10^3/uL (4.0-11.0)
[2020-01-02] MEDS ORDERED: NITROGLYCERIN SUBLINGUAL 0.4 MG BOTTLE OF 25. SL PRN (07:45)
[2020-01-02 07:59] LABS: CALCIUM 8.9 mg/dL (8.5-10.1); CREATININE 0.8 mg/dL (0.6-1.0); GFR 68.5; POTASSIUM 3.6 mmol/L (3.5-5.1)
[2020-01-02] MEDS: LEVOTHYROXINE 75 MCG TABLET PO SCH (09:07)
[2020-01-02] MEDS: CARVEDILOL 12.5 MG TABLET PO SCH ×3 (09:07→20:34)
[2020-01-02] MEDS: MULTIVITAMIN with MINERAL TABLET. PO SCH (09:07)
[2020-01-02] MEDS: APIXABAN 5 MG TABLET. PO SCH ×2 (09:07→20:34)
[2020-01-02] MEDS: MEMANTINE 10 MG TABLET. PO SCH ×2 (12:32→20:34)
[2020-01-02] MEDS: IV NORMAL SALINE 1,000ML 1,000 ML IV SCH (12:49)
--- NOTE | 2020-01-02 18:36 | NUR ---
PT very forget full and repetative asking the same questions over and over and over. PT is also trying to give jewelry to staff and we politely decline. PT is unsure why she is here and unable to verbalize understanding of poc. Liz RUEDA
[2020-01-02] MEDS: EZETIMIBE 10 MG TABLET PO SCH (20:34)
--- NOTE | 2020-01-02 21:27 | HP ---
ADMIT DATE: 01/01/2020 HISTORY OF PRESENT ILLNESS: An 84-year-old female came in through the Emergency Room via EMS. The patient's son found the patient with associated lightheadedness and high blood pressure and sort of out of sorts. She was very confused, disoriented. As a result of this, EMS found her blood pressure to be 190. Her sodium was about 118. The patient was seen in the Emergency Room and admitted for hyponatremia, hypertensive urgency and the like. The patient otherwise denied other symptoms, although she is quite having problems with dementia, and kind of unable to keep a track of ____. PAST MEDICAL HISTORY: Stroke, TIA, dementia, episodes of AFib, heart attack x 2, congestive heart failure, anticoagulant therapy; hypercholesterolemia, hypertension, DVT, COPD, colitis, hemorrhoidectomy, abdominal surgery 1/4 of stomach removed, reproductive hysterectomy, incontinence, degenerative arthritis, hypothyroidism, depression and smoking. FAMILY HISTORY: Positive for liver disease, cancer, diabetes and Alzheimer's disease. ALLERGIES: Allegedly to INFLUENZA VACCINES, PENICILLIN, TYLENOL, ALENDRONATE, AMLODIPINE, CARISOPRODOL, IODINE, NITROFURANTOIN, ZOLOFT and SPIRONOLACTONE. SOCIAL HISTORY: The patient denies presently any smoking, alcohol or drug use. Lives at home with her son. REVIEW OF SYSTEMS: The patient really is very confused, just generalized weakness. Otherwise, denies chest pain, shortness of breath, abdominal pain. Denies any melena, hematochezia, or hematemesis and neurologically baseline for her. PHYSICAL EXAMINATION: VITAL SIGNS: Her blood pressure came down from 190 down to 174/74, respiratory rate 16, pulse 72, afebrile. HEENT: The patient's head was atraumatic, normocephalic. Eyes: PERRLA without jaundice. Mouth and throat were normal. NECK: Supple, no JVD or thyromegaly. LUNGS: Diminished throughout, but basically clear. CARDIOVASCULAR: Regular sinus rhythm, S1, S2, without murmur, rub, thrill or extra heart sounds. ABDOMEN: The patient's abdomen was soft, nontender, no rebounding or guarding. Positive bowel sounds. EXTREMITIES: No clubbing, cyanosis or edema. NEUROLOGIC: Intact. LABORATORY DATA: As noted, her sodium was 118. Cardiac enzymes so far have been negative. The patient will continue to be monitored carefully, make further evaluation on her fluid restriction as well as normal saline. Continue to monitor her blood pressure. IMPRESSION AND PLAN: Hyponatremia, probably fluid overload; hypertensive urgency; dementia, Alzheimer type. The patient continued to be monitored and get her sodium back up and then plan for discharge. MARYA MAJOR MD DR: ALYSSA/maryann JOB#: [id number] / [id number]
[2020-01-03 00:01] VITALS: BP 146/66
[2020-01-03 04:55] VITALS: BP 98/69
[2020-01-03 06:46] LABS: BASO % 1 % (0-3); EOS # 0.1 x10^3/uL (0.0-0.7); EOS % 1 % (0-3); HEMATOCRIT 39.6 % (36.0-47.0); HEMOGLOBIN 13.3 g/dL (12.0-15.5); LYMPH # 1.9 x10^3/uL (1.0-4.8); LYMPH % 29 % (24-48); MEAN CORPUSCULAR HEMOGLOBIN 32 pg (25-35); MEAN CORPUSCULAR HGB CONC 34 g/dL (31-37); MEAN CORPUSCULAR VOLUME 96 fL (79-100); MONO # 0.7 x10^3/uL (0.0-1.1); MONO % 11 % (0-9); NEUT # 3.9 x10^3uL (1.8-7.7); NEUT % 59 % (31-73); PLATELET COUNT 280 x10^3/uL (140-400); RED BLOOD COUNT 4.12 x10^6/uL (3.50-5.40); WHITE BLOOD COUNT 6.7 x10^3/uL (4.0-11.0)
[2020-01-03 06:53] LABS: CALCIUM 8.4 mg/dL (8.5-10.1); CREATININE 0.7 mg/dL (0.6-1.0); GFR 79.9; POTASSIUM 3.6 mmol/L (3.5-5.1)
[2020-01-03] MEDS: MULTIVITAMIN with MINERAL TABLET. PO SCH (08:05)
[2020-01-03] MEDS: LEVOTHYROXINE 75 MCG TABLET PO SCH (08:05)
[2020-01-03] MEDS: CARVEDILOL 12.5 MG TABLET PO SCH ×3 (08:05→21:00)
[2020-01-03] MEDS: MEMANTINE 10 MG TABLET. PO SCH ×2 (08:05→21:00)
[2020-01-03] MEDS: cloNIDine HCL 0.1 MG TABLET PO PRN (08:05)
[2020-01-03] MEDS: APIXABAN 5 MG TABLET. PO SCH ×2 (08:05→21:00)
[2020-01-03] MEDS ORDERED: ONDANSETRON ODT 4 MG TAB.RAPDIS PO ONE (08:45)
[2020-01-03] MEDS: traMADol 50 MG TABLET PO PRN (08:49)
--- NOTE | 2020-01-03 12:30 | PN ---
DATE: SUBJECTIVE: The patient came in with extremely low sodium of 118. The patient shows signs of severe dementia with Alzheimer type, delusional as well as somewhat paranoid, thinking people are trying to kill her. The blood pressure, also, she got aggravated this morning and her blood pressure went up to 220/190 and 183/103 (NC). The patient otherwise is alert and oriented except for the fact that momentarily she is alert, but other times the woman is confused and disoriented, not quite knowing where she is at or accusing people of trying to kill her. In any case, she has severe dementia, which has been known, but seems to be precipitated possibly by being in the hospital. The patient's blood pressure has come down presently after giving her clonidine and Coreg, down to in the 150 range. OBJECTIVE: LUNGS: Otherwise, lungs clear. CARDIOVASCULAR: Stable. ABDOMEN: Soft, nontender. LABORATORY DATA: The patient's chemistries show a sodium of 131, BUN and creatinine of 10 and 0.7. Blood sugars are being monitored. The patient is continuing to be monitored carefully, make further evaluation. IMPRESSION: Syndrome of inappropriate antidiuretic hormone secretion, dementia, Alzheimer type with some psychosis. PLAN: [facility] will have [facility] review her and make further evaluation once they have decided to accept her or not. MARYA MAJOR MD DR: ALYSSA/maryann JOB#: [id number] / [id number]
--- NOTE | 2020-01-03 13:32 | NUR ---
Pt behavior is very labile today, she was initially very verbally aggressive, yelling about Trump and how "he's a bastard that beats his " then almost immediately be pleasant and talkative to staff when redirected. She would be cursing then praying incessantly to God for help to bring down her BP. She called staff into room three times within 5 minutes to show the staff her BP, although staff had just left room and discussed BP with her. Discussed these findings with Dr Julio, who then recommended her being evaluated for [facility]. Orders placed, Consult request faxed. Discussed possible admit to [facility] with daughter/DPOA Tran, who said she agrees with plan of care and is relieved Linda is getting more help. Tran was transferred via phone call into Linda's room to speak with her. Tran later informed staff Linda thinks staff is trying to 'kill her.' Pt is currently sleeping in room.
[2020-01-03 15:00] VITALS: BP 135/60
[2020-01-03 16:00] VITALS: BP 180/75
[2020-01-03 17:00] VITALS: BP 141/68
[2020-01-03] MEDS: ONDANSETRON ODT 4 MG TAB.RAPDIS PO PRN (19:20)
--- NOTE | 2020-01-03 20:28 | RAD ---
EXAM: CT head without contrast INDICATION: Increased confusion COMPARISON: CT head 01/01/2020 TECHNIQUE: Axial CT imaging through the head without intravenous contrast. One or more of the following individualized dose reduction techniques were utilized for this examination: 1. Automated exposure control 2. Adjustment of the mA and/or kV according to patient size 3. Use of iterative reconstruction technique. FINDINGS: The ventricles and sulci are moderately enlarged. Cavum septum pellucidum noted. There is severe periventricular and deep white matter hypoattenuation. Dunham-white matter differentiation is maintained. No intracranial hemorrhage, acute infarct, or mass lesion. Skull and scalp are intact. Paranasal sinuses and mastoid air cells are clear. Globes and orbits are intact. IMPRESSION: 1. No acute intracranial abnormality. 2. Unchanged moderate volume loss. 3. Unchanged severe white matter disease, likely due to chronic microvascular ischemia. Electronically signed by: Amy Neumann MD (01/03/2020 8:25 PM) [id number]
[2020-01-03 20:30] VITALS: BP 115/61
[2020-01-03] MEDS: EZETIMIBE 10 MG TABLET PO SCH (21:00)
--- NOTE | 2020-01-03 21:48 | PDOC ---
Exam Note: Jayden Note: Please also refer to the separate dictated note~for this date of service dictated separately.~Patient seen individually. Discussed the patient with Nursing staff reviewed the chart.~Reviewed interim history and current functioning. Reviewed vital signs,~Labs/ Radiology~and current medications noted below. Continue current treatment with the changes noted in the dictated addendum note Assessment: Vital Signs/I&O: Vital Signs Date Time Temp Pulse Resp B/P (MAP) Pulse Ox O2 Delivery O2 Flow Rate FiO2 01/03/20 20:45 Room Air 01/03/20 20:30 98.7 69 16 115/61 (79) 96 I & O 01/02/20 01/02/20 01/03/20 15:00 23:00 07:00 Intake Total 320 ml 240 ml Balance 320 ml 240 ml Labs: Laboratory Tests Test 01/03/20 06:22 White Blood Count 6.7 x10^3/uL (4.0-11.0) Red Blood Count 4.12 x10^6/uL (3.50-5.40) Hemoglobin 13.3 g/dL (12.0-15.5) Hematocrit 39.6 % (36.0-47.0) Mean Corpuscular Volume 96 fL (79-100) Mean Corpuscular Hemoglobin 32 pg (25-35) Mean Corpuscular Hemoglobin Concent 34 g/dL (31-37) Red Cell Distribution Width 14.0 % (11.5-14.5) Platelet Count 280 x10^3/uL (140-400) Neutrophils (%) (Auto) 59 % (31-73) Lymphocytes (%) (Auto) 29 % (24-48) Monocytes (%) (Auto) 11 % (0-9) H Eosinophils (%) (Auto) 1 % (0-3) Basophils (%) (Auto) 1 % (0-3) Neutrophils # (Auto) 3.9 x10^3uL (1.8-7.7) Lymphocytes # (Auto) 1.9 x10^3/uL (1.0-4.8) Monocytes # (Auto) 0.7 x10^3/uL (0.0-1.1) Eosinophils # (Auto) 0.1 x10^3/uL (0.0-0.7) Basophils # (Auto) 0.0 x10^3/uL (0.0-0.2) Sodium Level 131 mmol/L (136-145) L Potassium Level 3.6 mmol/L (3.5-5.1) Chloride Level 97 mmol/L (98-107) L Carbon Dioxide Level 27 mmol/L (21-32) Anion Gap 7 (6-14) Blood Urea Nitrogen 10 mg/dL (7-20) Creatinine 0.7 mg/dL (0.6-1.0) Estimated GFR (Cockcroft-Gault) 79.9 Glucose Level 105 mg/dL (70-99) H Calcium Level 8.4 mg/dL (8.5-10.1) L Current Medications: Meds: Current Medications Medications (Trade) Dose Ordered Sig/Sherrell Route PRN Reason Start Time Stop Time Status Last Admin Dose Admin Nifedipine (Procardia Xl) 30 mg DAILY PO 01/03/20 09:00 01/03/20 08:49 Ondansetron HCl (Zofran Odt) 4 mg 1X ONCE PO 01/03/20 08:45 01/03/20 08:46 DC 01/03/20 08:44 Ondansetron HCl (Zofran Odt) 4 mg PRN Q8HRS PRN PO NAUSEA/VOMITING 01/03/20 19:00 01/03/20 19:20 I have reviewed the current psychotropics carefully including drug interactions. Risk benefit ratio favors no change other than as noted in my dictated progress note. Diagnosis: Problems: (1) Elevated lipase NAHED PATEL MD Jan 03, 2020 21:48
[2020-01-04] MEDS: ONDANSETRON ODT 4 MG TAB.RAPDIS PO PRN ×2 (00:53→08:37)
[2020-01-04 06:20] VITALS: BP 165/85
[2020-01-04] MEDS: LEVOTHYROXINE 75 MCG TABLET PO SCH (06:23)
--- NOTE | 2020-01-04 06:43 | NUR ---
Patient's mood continues to be labile. Alternates between anger and sadness, yells out for help instead of using the call light. At one point patient got out of bed and pounded on her door demanding attention. Patient expressing anger at her daughter, states "she wants to put me in a home." Patient was demanding that her dog be allowed to be with her, states "call Dr Julio, he will tell you I need her." Explained to patient that only service animals are allowed in hospital.
[2020-01-04] MEDS: CARVEDILOL 12.5 MG TABLET PO SCH ×3 (11:48→20:04)
[2020-01-04] MEDS: MEMANTINE 10 MG TABLET. PO SCH ×2 (11:48→20:05)
[2020-01-04] MEDS: traMADol 50 MG TABLET PO PRN (11:48)
[2020-01-04] MEDS: APIXABAN 5 MG TABLET. PO SCH ×2 (11:48→20:05)
[2020-01-04] MEDS: MULTIVITAMIN with MINERAL TABLET. PO SCH (11:48)
[2020-01-04 12:00] VITALS: BP 173/77
[2020-01-04 12:07] LABS: URINE OSMOLALITY 233 mOsmol/kg (.)
[2020-01-04] MEDS ORDERED: ONDANSETRON ODT 4 MG TAB.RAPDIS PO PRN (12:15)
--- NOTE | 2020-01-04 13:34 | PN ---
DATE: SUBJECTIVE: The patient is very confused and somewhat paranoid, thinking people are out to get her, has had nausea this morning. We went ahead and ordered some blood work and lipase is still pending. Otherwise, she appears to be somewhat pale, but her main complaint is her nausea. OBJECTIVE: VITAL SIGNS: The patient's blood pressure is 170/116. We will increase her Procardia. Respiratory rate 20, pulse 77, afebrile. LUNGS: The patient's lungs are diminished, but clear. CARDIOVASCULAR: Regular sinus rhythm. ABDOMEN: Soft, diffuse tenderness in the epigastric area, but no rebounding, no guarding. Positive bowel sounds were noted. Placed on Protonix for that. Otherwise, continued to be monitored. We will wait for other lab work coming back. She did have a low sodium, had come up to 131. We will go ahead and continue to monitor her. Waiting for [facility] to possibly accept her when she is stable with these other issues. IMPRESSION: Therefore, hyponatremia; epigastric pain with nausea; dementia, Alzheimer type with paranoid ideation. PLAN: We will go ahead and monitor her on the lipase level and make further evaluation once those results are back. MARYA MAJOR MD DR: ALYSSA/maryann JOB#: [id number] / [id number]
[2020-01-04 13:48] LABS: BASO % 0 % (0-3); EOS % 0 % (0-3); HEMATOCRIT 36.3 % (36.0-47.0); HEMOGLOBIN 12.6 g/dL (12.0-15.5); LYMPH # 1.7 x10^3/uL (1.0-4.8); LYMPH % 16 % (24-48); MEAN CORPUSCULAR HEMOGLOBIN 32 pg (25-35); MEAN CORPUSCULAR HGB CONC 35 g/dL (31-37); MEAN CORPUSCULAR VOLUME 93 fL (79-100); MONO # 0.7 x10^3/uL (0.0-1.1); MONO % 7 % (0-9); NEUT # 8.5 x10^3uL (1.8-7.7); NEUT % 77 % (31-73); PLATELET COUNT 319 x10^3/uL (140-400); RED CELL DISTRIBUTION WIDTH 13.3 % (11.5-14.5)
[2020-01-04 14:05] LABS: CALCIUM 8.6 mg/dL (8.5-10.1); CREATININE 0.6 mg/dL (0.6-1.0); GFR 95.5; POTASSIUM 3.2 mmol/L (3.5-5.1)
[2020-01-04] MEDS: IV NORMAL SALINE 1,000ML 1,000 ML IV SCH (14:30)
--- NOTE | 2020-01-04 17:16 | CONS ---
DATE OF CONSULTATION: 01/03/2020 PSYCHIATRIC CONSULTATION This is a late entry date of service 01/03/2020 covers elements not covered in my initial note. IDENTIFYING DATA: The patient is an 84-year-old female, seen in ICU bed 5, [facility] for a psychiatric consult requested by Dr. Julio on account of the patient's marked mood lability within the context of her dementia. She has been yelling, somewhat obsessive, repeatedly yelling out "Trump" in derogatory term and disrespect. She was hyponatremic at admission. This was corrected. She remains extremely labile in her mood, crying and laughing in quick succession, praying and hyper-adventism at times. She is quite disruptive on the unit, thus resulting in this psychiatric referral. CHIEF COMPLAINT: "I am okay. I came here in 1966." The patient thought I was questioning her when she arrived in the , but in fact I was questioning her when she came to the [facility] and she is quite disorganized, unable to remember this or the year or who the president was, amongst other things. CHIEF COMPLAINT: "I am okay." HISTORY OF PRESENT ILLNESS: The patient has a history of dementia, Alzheimer's vascular type. Reportedly, she had been living with her children and getting more agitated, labile, confused. She was admitted when treated for dehydration, but the confusion has persisted, resulting in this referral. She ____ sleep and appetite changes. No active suicidal or homicidal ideation. She has appeared quite psychotic at times. No clear history of bipolar disorder. PAST PSYCHIATRIC HISTORY: As above. MEDICAL HISTORY: Dehydration, status post CVA, TIA, episodic atrial fibrillation, history of VA twice, congestive heart failure, is on anticoagulant therapy, hypercholesterolemia, hypertension, DVT, COPD, colitis, history of hemorrhoidectomy, abdominal surgery, reproductive hysterectomy, incontinence, degenerative arthritis, hypothyroidism. She is a smoker. FAMILY HISTORY: Positive for liver disease, cancer, diabetes, Alzheimer's. ALLERGIES: ALLEGEDLY TO INFLUENZA VACCINE, PENICILLIN, TYLENOL, ALENDRONATE, AMLODIPINE, CARISOPRODOL, IODINE, NITROFURANTOIN, ZOLOFT AND SPIRONOLACTONE. SOCIAL HISTORY: No alcohol, drug abuse history. The patient lives at home with her son. REVIEW OF SYSTEMS: Ambulation impaired. No CV, , pulmonary, eye system symptoms on review. MENTAL STATUS EXAMINATION: The patient was seen individually on telehealth rounds in the evening. She is oriented to herself, hyperverbal at times, distractible. Insight, judgment, recent and remote memory, attention, concentration, fund of knowledge poor, consistent with her diagnoses. LABORATORY DATA: Reviewed. IMPRESSION: Major neurocognitive disorder, probably vascular, possibly Alzheimer's with delusion, depression, behavioral disturbance. Anxiety disorder, unspecified. Impulse control disorder, unspecified. Rest as above. PLAN: Check CT head if one has not been done recently. Continue to stabilize medically. May consider adding Zyprexa p.r.n. Consider an SSRI if behavioral dyscontrol persists. May consider transitioning her to the [facility] when she is medically stable. Dr. Julio, thank you for the opportunity to participate in your patient's care. We will follow with you. NAHED PATEL MD DR: SANTINO/maryann JOB#: [id number] / [id number]
[2020-01-04] MEDS: PROCHLORPERAZINE 10 MG/2 ML VIAL. IV PRN (17:21)
[2020-01-04 18:00] VITALS: BP 158/75
[2020-01-04] MEDS: EZETIMIBE 10 MG TABLET PO SCH (20:05)
[2020-01-04 20:32] VITALS: BP 91/53
--- NOTE | 2020-01-04 22:00 | PDOC ---
Exam Note: Jayden Note: Please also refer to the separate dictated note~for this date of service dictated separately.~Patient seen individually. Discussed the patient with Nursing staff reviewed the chart.~Reviewed interim history and current functioning. Reviewed vital signs,~Labs/ Radiology~and current medications noted below. Continue current treatment with the changes noted in the dictated addendum note Assessment: Vital Signs/I&O: Vital Signs Date Time Temp Pulse Resp B/P (MAP) Pulse Ox O2 Delivery O2 Flow Rate FiO2 01/04/20 20:32 98.5 69 16 91/53 (66) 92 Room Air 01/04/20 07:32 2.0 Labs: Laboratory Tests Test 01/04/20 13:15 White Blood Count 11.0 x10^3/uL (4.0-11.0) Red Blood Count 3.90 x10^6/uL (3.50-5.40) Hemoglobin 12.6 g/dL (12.0-15.5) Hematocrit 36.3 % (36.0-47.0) Mean Corpuscular Volume 93 fL (79-100) Mean Corpuscular Hemoglobin 32 pg (25-35) Mean Corpuscular Hemoglobin Concent 35 g/dL (31-37) Red Cell Distribution Width 13.3 % (11.5-14.5) Platelet Count 319 x10^3/uL (140-400) Neutrophils (%) (Auto) 77 % (31-73) H Lymphocytes (%) (Auto) 16 % (24-48) L Monocytes (%) (Auto) 7 % (0-9) Eosinophils (%) (Auto) 0 % (0-3) Basophils (%) (Auto) 0 % (0-3) Neutrophils # (Auto) 8.5 x10^3uL (1.8-7.7) H Lymphocytes # (Auto) 1.7 x10^3/uL (1.0-4.8) Monocytes # (Auto) 0.7 x10^3/uL (0.0-1.1) Eosinophils # (Auto) 0.0 x10^3/uL (0.0-0.7) Basophils # (Auto) 0.0 x10^3/uL (0.0-0.2) Sodium Level 116 mmol/L (136-145) *L Potassium Level 3.2 mmol/L (3.5-5.1) L Chloride Level 81 mmol/L (98-107) L Carbon Dioxide Level 24 mmol/L (21-32) Anion Gap 11 (6-14) Blood Urea Nitrogen 9 mg/dL (7-20) Creatinine 0.6 mg/dL (0.6-1.0) Estimated GFR (Cockcroft-Gault) 95.5 Glucose Level 124 mg/dL (70-99) H Calcium Level 8.6 mg/dL (8.5-10.1) Lipase 70 U/L (73-393) L Current Medications: Meds: Current Medications Medications (Trade) Dose Ordered Sig/Sherrell Route PRN Reason Start Time Stop Time Status Last Admin Dose Admin Levothyroxine Sodium (Synthroid) 75 mcg DAILY06 PO 01/04/20 06:00 01/04/20 06:23 Sodium Chloride 1,000 ml @ 75 mls/hr [id number] IV 01/04/20 14:30 01/04/20 14:30 Prochlorperazine Edisylate (Compazine) 10 mg PRN BID PRN IV NAUSEA/VOMITING 01/04/20 17:15 01/04/20 17:21 I have reviewed the current psychotropics carefully including drug interactions. Risk benefit ratio favors no change other than as noted in my dictated progress note. Diagnosis: Problems: (1) Major neurocognitive disorder (2) Dementia in Alzheimer's disease with delusions (3) Dementia in Alzheimer's disease with depression (4) Dementia of the Alzheimer's type with early onset with behavioral disturbance (5) Dementia, vascular, with delusions (6) Dementia, vascular, with depression (7) Anxiety disorder, unspecified (8) Impulse control disorder, unspecified NAHED PATEL MD Jan 04, 2020 22:00
--- NOTE | 2020-01-04 23:13 | PDOC ---
Exam Note: Jayden Note: This note covers elements not covered in my initial note. Subjective: The patient was reviewed on telehealth rounds due to COVID-19 restrictions on the unit in the evening of 01/04/2020 with Amy RUEDA. Discussed with nursing staff, reviewed the chart. Overall the patient remains confused but is not agitated, aggressive. She is otherwise quite pleasant. She was wearing a mask as I met with her on telehealth rounds in the evening. Review of Systems: Ambulation impaired. No CV, , pulmonary, eye system symptoms on review. Mental Status Exam: Oriented to herself and situation. Insight and judgment, recent and remote memory, attention and concentration, fund of knowledge is poor consistent with her diagnoses. Laboratory Data: Reviewed. Impression: Major neurocognitive disorder Alzheimer, vascular with delusion, depression, behavioral disturbance. Anxiety disorder unspecified. Impulse control disorder unspecified. Plan: No change from initial note. Continue psychotropics from initial note. Assessment: Vital Signs/I&O: Vital Signs Date Time Temp Pulse Resp B/P (MAP) Pulse Ox O2 Delivery O2 Flow Rate FiO2 01/04/20 20:32 98.5 69 16 91/53 (66) 92 Room Air 01/04/20 07:32 2.0 Labs: Laboratory Tests Test 01/04/20 13:15 White Blood Count 11.0 x10^3/uL (4.0-11.0) Red Blood Count 3.90 x10^6/uL (3.50-5.40) Hemoglobin 12.6 g/dL (12.0-15.5) Hematocrit 36.3 % (36.0-47.0) Mean Corpuscular Volume 93 fL (79-100) Mean Corpuscular Hemoglobin 32 pg (25-35) Mean Corpuscular Hemoglobin Concent 35 g/dL (31-37) Red Cell Distribution Width 13.3 % (11.5-14.5) Platelet Count 319 x10^3/uL (140-400) Neutrophils (%) (Auto) 77 % (31-73) H Lymphocytes (%) (Auto) 16 % (24-48) L Monocytes (%) (Auto) 7 % (0-9) Eosinophils (%) (Auto) 0 % (0-3) Basophils (%) (Auto) 0 % (0-3) Neutrophils # (Auto) 8.5 x10^3uL (1.8-7.7) H Lymphocytes # (Auto) 1.7 x10^3/uL (1.0-4.8) Monocytes # (Auto) 0.7 x10^3/uL (0.0-1.1) Eosinophils # (Auto) 0.0 x10^3/uL (0.0-0.7) Basophils # (Auto) 0.0 x10^3/uL (0.0-0.2) Sodium Level 116 mmol/L (136-145) *L Potassium Level 3.2 mmol/L (3.5-5.1) L Chloride Level 81 mmol/L (98-107) L Carbon Dioxide Level 24 mmol/L (21-32) Anion Gap 11 (6-14) Blood Urea Nitrogen 9 mg/dL (7-20) Creatinine 0.6 mg/dL (0.6-1.0) Estimated GFR (Cockcroft-Gault) 95.5 Glucose Level 124 mg/dL (70-99) H Calcium Level 8.6 mg/dL (8.5-10.1) Lipase 70 U/L (73-393) L Current Medications: Meds: Current Medications Medications (Trade) Dose Ordered Sig/Sherrell Route PRN Reason Start Time Stop Time Status Last Admin Dose Admin Levothyroxine Sodium (Synthroid) 75 mcg DAILY06 PO 01/04/20 06:00 01/04/20 06:23 Sodium Chloride 1,000 ml @ 75 mls/hr [id number] IV 01/04/20 14:30 01/04/20 14:30 Prochlorperazine Edisylate (Compazine) 10 mg PRN BID PRN IV NAUSEA/VOMITING 01/04/20 17:15 01/04/20 17:21 I have reviewed the current psychotropics carefully including drug interactions. Risk benefit ratio favors no change other than as noted in my dictated progress note. Diagnosis: Problems: (1) Impulse control disorder, unspecified (2) Anxiety disorder, unspecified (3) Dementia, vascular, with depression (4) Dementia, vascular, with delusions (5) Dementia of the Alzheimer's type with early onset with behavioral disturbance (6) Major neurocognitive disorder (7) Dementia in Alzheimer's disease with delusions (8) Dementia in Alzheimer's disease with depression NAHED PATEL MD Jan 04, 2020 23:13
[2020-01-05] VITALS (7 sets, daily range): BP systolic 99–122; BP diastolic 46–75
--- NOTE | 2020-01-05 00:51 | RAD ---
CT abdomen and pelvis without contrast: Reason for examination: Nausea. Comparison is made to previous study dated 07/27/2013. Helical images were obtained through the abdomen pelvis with no intravenous or oral contrast administered. Reconstruction was performed in sagittal and coronal planes. Exposure: One or more of the following individualized dose reduction techniques were utilized for this examination: 1. Automated exposure control 2. Adjustment of the mA and/or kV according to patient size 3. Use of iterative reconstruction technique. There appears to be atelectasis or mild infiltrates posterior at the lung bases, right greater than left. The heart size is normal with no pericardial effusion. The liver appears to be enlarged at 20 cm but this is unchanged. No focal hepatic lesions are seen. There continue to be splenic granuloma. No abnormalities are seen at the adrenal glands, pancreas or gallbladder. The abdominal aorta shows arteriosclerotic calcification but no aneurysmal dilatation. The colon shows no diverticulosis or diverticulitis or colitis. The stomach shows no abnormal wall thickening or obstruction. The small intestinal tract shows no abnormal dilatation or obstruction. The kidneys show no renal masses, renal calculi, hydronephrosis or evidence of obstructive uropathy. No abnormality seen at the bladder. Uterus is surgically absent. There is note made of a 2 cm calcific density low in the pelvis near the base of the bladder. No free fluid or free air seen in the abdomen or pelvis. There is a large Schmorl's node in the superior endplate of the L2 vertebral body with a small Schmorl's node in superior endplate of the T12 vertebral body. There is degenerative disc disease at the L4-5 and L5-S1 disc levels. IMPRESSION: Atelectasis or mild infiltrates at the lung bases bilaterally, right greater than left. Hepatomegaly. Large Schmorl's node involving superior endplate of the L2 vertebral body. Degenerative disc disease at the L4-5 and L5-S1 disc levels. No other acute abnormality seen in the abdomen or pelvis. Electronically signed by: Zuleima Hart MD (01/05/2020 12:48 AM) LIZETH
[2020-01-05] MEDS: IV NORMAL SALINE 1,000ML 1,000 ML IV SCH ×3 (04:20→21:57)
[2020-01-05] MEDS: LEVOTHYROXINE 75 MCG TABLET PO SCH (06:21)
[2020-01-05] MEDS: APIXABAN 5 MG TABLET. PO SCH ×2 (08:18→20:36)
[2020-01-05] MEDS: PANTOPRAZOLE 40 MG TABLET. PO SCH (08:19)
[2020-01-05] MEDS: CARVEDILOL 12.5 MG TABLET PO SCH ×3 (08:19→20:37)
[2020-01-05] MEDS: MULTIVITAMIN with MINERAL TABLET. PO SCH (08:19)
[2020-01-05] MEDS: PROCHLORPERAZINE 10 MG/2 ML VIAL. IV PRN (08:20)
[2020-01-05] MEDS: MEMANTINE 10 MG TABLET. PO SCH ×2 (08:20→20:34)
[2020-01-05 10:42] LABS: BASO % 0 % (0-3); EOS % 0 % (0-3); HEMATOCRIT 35.2 % (36.0-47.0); HEMOGLOBIN 12.2 g/dL (12.0-15.5); LYMPH # 1.3 x10^3/uL (1.0-4.8); LYMPH % 14 % (24-48); MEAN CORPUSCULAR HEMOGLOBIN 33 pg (25-35); MEAN CORPUSCULAR HGB CONC 35 g/dL (31-37); MEAN CORPUSCULAR VOLUME 94 fL (79-100); MONO # 1.1 x10^3/uL (0.0-1.1); MONO % 12 % (0-9); NEUT # 6.9 x10^3uL (1.8-7.7); NEUT % 73 % (31-73); PLATELET COUNT 310 x10^3/uL (140-400); RED BLOOD COUNT 3.74 x10^6/uL (3.50-5.40); RED CELL DISTRIBUTION WIDTH 13.6 % (11.5-14.5); WHITE BLOOD COUNT 9.4 x10^3/uL (4.0-11.0)
[2020-01-05 10:54] LABS: ALBUMIN 3.6 g/dL (3.4-5.0); ALBUMIN/GLOBULIN RATIO 1.1 (1.0-1.7); CALCIUM 8.4 mg/dL (8.5-10.1); CREATININE 0.7 mg/dL (0.6-1.0); GFR 79.9; POTASSIUM 3.5 mmol/L (3.5-5.1); TOTAL BILIRUBIN 0.7 mg/dL (0.2-1.0); TOTAL PROTEIN 6.9 g/dL (6.4-8.2)
--- NOTE | 2020-01-05 19:36 | RAD ---
Exam: CT of chest without contrast INDICATION: SIADH, history of smoking TECHNIQUE: Sequential axial images through the chest obtained without IV contrast. Sagittal and coronal reformatted images were reconstructed from the axial data and reviewed. Comparisons: Chest x-ray 01/01/2020 FINDINGS: Visualized portions of the thyroid are unremarkable. No enlarged mediastinal lymph nodes are identified. Heart size is normal. Mild coronary artery calcium lesions. Thoracic aorta has a normal course and caliber. Pulmonary artery is not enlarged. Airways are patent. No consolidation or pneumothorax. Mild centrilobular emphysematous change at the upper lungs. No pleural effusion or thickening. Visualized upper abdomen is unremarkable. No suspicious osseous lesions or acute fracture. IMPRESSION: No convincing evidence for malignancy in the chest. Mild centrilobular emphysematous change the upper lungs. Exposure: One or more of the following in the visualized dose reduction techniques were utilized for this examination: 1. Automated exposure control 2. Adjustment of the MA and/or KV according to patient size 3. Use of iterative of reconstructive technique Electronically signed by: Hernan Fairchild MD (01/05/2020 7:33 PM) [id number]
[2020-01-05] MEDS: EZETIMIBE 10 MG TABLET PO SCH (20:34)
[2020-01-05] MEDS: DEMECLOCYCLINE HCL 150 MG TABLET. PO SCH (20:36)
--- NOTE | 2020-01-05 21:10 | PN ---
DATE: 01/05/2020 SUBJECTIVE: The patient is doing a little bit better today as her sodium has come back up from the 116 range back up to 121. The patient is otherwise still very weak. We will put her on demeclocycline to help bring up her sodium. She is on a fluid restriction. OBJECTIVE: VITAL SIGNS: Blood pressure 122/60, respiratory rate 21, pulse 100, afebrile. GENERAL: The patient is still somewhat confused, disoriented. LUNGS: Otherwise, lungs are diminished, but basically clear. CARDIOVASCULAR: Regular sinus rhythm, S1, S2. ABDOMEN: Soft, nontender. NEUROLOGIC: The patient is alert, but confused, disoriented, baseline. IMPRESSION: SIADH, dementia with Alzheimer type, neurocognitive disorder, abdominal pain of unknown etiology at the present time. PLAN: We will go ahead and get a CT scan, put her on the demeclocycline and also repeat her electrolytes in the morning for further confirmation of her low sodium. MARYA MAJOR MD DR: ALYSSA/maryann JOB#: [id number] / [id number]
--- NOTE | 2020-01-05 21:48 | PDOC ---
Exam Note: Jayden Note: Please also refer to the separate dictated note~for this date of service dictated separately.~Patient seen individually. Discussed the patient with Nursing staff reviewed the chart.~Reviewed interim history and current functioning. Reviewed vital signs,~Labs/ Radiology~and current medications noted below. Continue current treatment with the changes noted in the dictated addendum note Assessment: Vital Signs/I&O: Vital Signs Date Time Temp Pulse Resp B/P (MAP) Pulse Ox O2 Delivery O2 Flow Rate FiO2 01/05/20 20:37 94 98/56 01/05/20 20:16 98.5 22 93 Room Air 01/04/20 07:32 2.0 I & O 01/04/20 01/04/20 01/05/20 15:00 23:00 07:00 Intake Total 400 ml 1320 ml Balance 400 ml 1320 ml Labs: Laboratory Tests Test 01/05/20 10:20 White Blood Count 9.4 x10^3/uL (4.0-11.0) Red Blood Count 3.74 x10^6/uL (3.50-5.40) Hemoglobin 12.2 g/dL (12.0-15.5) Hematocrit 35.2 % (36.0-47.0) L Mean Corpuscular Volume 94 fL (79-100) Mean Corpuscular Hemoglobin 33 pg (25-35) Mean Corpuscular Hemoglobin Concent 35 g/dL (31-37) Red Cell Distribution Width 13.6 % (11.5-14.5) Platelet Count 310 x10^3/uL (140-400) Neutrophils (%) (Auto) 73 % (31-73) Lymphocytes (%) (Auto) 14 % (24-48) L Monocytes (%) (Auto) 12 % (0-9) H Eosinophils (%) (Auto) 0 % (0-3) Basophils (%) (Auto) 0 % (0-3) Neutrophils # (Auto) 6.9 x10^3uL (1.8-7.7) Lymphocytes # (Auto) 1.3 x10^3/uL (1.0-4.8) Monocytes # (Auto) 1.1 x10^3/uL (0.0-1.1) Eosinophils # (Auto) 0.0 x10^3/uL (0.0-0.7) Basophils # (Auto) 0.0 x10^3/uL (0.0-0.2) Sodium Level 121 mmol/L (136-145) L Potassium Level 3.5 mmol/L (3.5-5.1) Chloride Level 87 mmol/L (98-107) L Carbon Dioxide Level 22 mmol/L (21-32) Anion Gap 12 (6-14) Blood Urea Nitrogen 9 mg/dL (7-20) Creatinine 0.7 mg/dL (0.6-1.0) Estimated GFR (Cockcroft-Gault) 79.9 BUN/Creatinine Ratio 13 (6-20) Glucose Level 123 mg/dL (70-99) H Calcium Level 8.4 mg/dL (8.5-10.1) L Total Bilirubin 0.7 mg/dL (0.2-1.0) Aspartate Amino Transferase (AST) 27 U/L (15-37) Alanine Aminotransferase (ALT) 23 U/L (14-59) Alkaline Phosphatase 64 U/L (46-116) Total Protein 6.9 g/dL (6.4-8.2) Albumin 3.6 g/dL (3.4-5.0) Albumin/Globulin Ratio 1.1 (1.0-1.7) Current Medications: Meds: Current Medications Medications (Trade) Dose Ordered Sig/Sherrell Route PRN Reason Start Time Stop Time Status Last Admin Dose Admin Pantoprazole Sodium (Protonix) 40 mg DAILYAC PO 01/05/20 07:30 01/05/20 08:19 Ceftriaxone Sodium 1 gm/ Sodium Chloride 50 ml @ 100 mls/hr Q24H IV 01/05/20 10:15 01/05/20 10:34 Demeclocycline HCl (Declomycin) 150 mg Q12HR PO 01/05/20 21:00 01/05/20 20:36 I have reviewed the current psychotropics carefully including drug interactions. Risk benefit ratio favors no change other than as noted in my dictated progress note. Diagnosis: Problems: (1) Impulse control disorder, unspecified (2) Anxiety disorder, unspecified (3) Dementia, vascular, with depression (4) Dementia, vascular, with delusions (5) Dementia in Alzheimer's disease with depression (6) Dementia in Alzheimer's disease with delusions (7) Dementia of the Alzheimer's type with early onset with behavioral disturbance (8) Major neurocognitive disorder NAHED PATEL MD Jan 05, 2020 21:48
[2020-01-06] MEDS: LEVOTHYROXINE 75 MCG TABLET PO SCH (05:17)
[2020-01-06 06:13] VITALS: BP 121/79
[2020-01-06 06:27] LABS: CALCIUM 7.9 mg/dL (8.5-10.1); CREATININE 0.5 mg/dL (0.6-1.0); GFR 117.8
[2020-01-06 06:32] LABS: POTASSIUM 2.7 mmol/L (3.5-5.1)
[2020-01-06] MEDS ORDERED: ELECTROLYTE (NON-ICU) PROTOCOL MC PRN (06:45)
[2020-01-06] MEDS: POTASSIUM CHLORIDE 10MEQ 100 ML IV SCH ×4 (07:45→10:18)
[2020-01-06] MEDS: PANTOPRAZOLE 40 MG TABLET. PO SCH (08:37)
[2020-01-06] MEDS: APIXABAN 5 MG TABLET. PO SCH ×2 (08:38→20:48)
[2020-01-06] MEDS: MULTIVITAMIN with MINERAL TABLET. PO SCH (08:38)
[2020-01-06] MEDS: MEMANTINE 10 MG TABLET. PO SCH ×2 (08:38→20:48)
[2020-01-06] MEDS: CARVEDILOL 12.5 MG TABLET PO SCH ×3 (08:39→20:48)
[2020-01-06] MEDS: DEMECLOCYCLINE HCL 150 MG TABLET. PO SCH ×2 (08:39→20:49)
[2020-01-06] MEDS ORDERED: ELECTROLYTE (ICU) PROTOCOL. MC PRN (09:30)
[2020-01-06 10:30] VITALS: BP 111/71
--- NOTE | 2020-01-06 11:15 | NUR ---
NURSING NOTE PHONE CALL SPOKE WITH PT DAUGHTER WHO STATES SHE IS THE DPOA. STATES PT LIVES HOME WITH HER SON. HOWEVER, PT HAS BEEN HAVING SOME COGNITIVE DECLINE AT HOME, DEMENTIA, BEHAVIORAL ISSUES AND STATES "SHE IS SCARING US". STATES SHE WOULD LIKE FOR HER TO GO UPSTAIRS TO OUR [facility] UNIT FOR EVALUATION. SPOKE WITH DR MAJOR, CURRENTLY REPLACING PT ELECTROLYTES AND ONCE MEDICALLY STABLE CAN DISCUSS DISCHARGE PLAN FOR POSSIBLE [facility] ADMIT TOMORROW IF MEDICALLY STABLE PENDING SOME FURTHER TESTING AT THIS TIME. CASE MANAGEMENT NOTIFIED. MOHIT REID.
[2020-01-06] MEDS: IV NORMAL SALINE 1,000ML 1,000 ML IV SCH (13:30)
[2020-01-06 15:12] VITALS: BP 119/64
--- NOTE | 2020-01-06 16:37 | RAD ---
BONE SCAN LIMITED Clinical Indication: Reason: abnormal lab values/chronic generalized pain / Comparison: CT chest without contrast, prior day. CT abdomen and pelvis without contrast, 2 days ago. TECHNIQUE: Patient is injected with 24 mCi of technetium 99m MDP. After routine delay, anterior and posterior static images of the chest, abdomen, pelvis, and femurs acquired. Findings: There is increased tracer uptake of the L2 vertebral body. On CT there is large Schmorl's node or central compression deformity. Tracer in urinary bladder obscures the lower sacrum and the pubic rami. Tracer uptake in visualized ribs is symmetric. Tracer uptake in visualized pelvic bones is symmetric. Tracer uptake of the knees and shoulders is likely degenerative. Tracer distribution in the soft tissues appears normal. IMPRESSION: There is increased tracer uptake of the L2 vertebral body suggesting the central compression fracture or large Schmorl's node of the superior endplate is subacute. Electronically signed by: Bharat Jones MD (01/06/2020 4:34 PM) [id number]
--- NOTE | 2020-01-06 20:26 | PN ---
DATE: SUBJECTIVE: An 84-year-old female, of course, came in with severe hyponatremia, probable SIADH. The patient made good progress with IV saline. She was taken off that and placed on a regular diet; however, her sodium dropped down to 116, which is lower than what it was before. We put her back on the additional saline and it came back up to 121, 125; potassium however dropped down to 2.7, placed on electrolyte replacement continuous up to 3.6. She is still a little bit confused, disoriented. COVID-19 negative. We put her on demeclocycline to see if this would help her with her maintaining her sodium once she is again taken off the normal saline. OBJECTIVE: VITAL SIGNS: Blood pressure is 120/60, respiratory rate 20, pulse 70, afebrile. GENERAL: The patient is alert, but slightly confused, short-term memory deficits. LUNGS: Otherwise, the patient's lungs are lear. CARDIOVASCULAR: Regular sinus rhythm. ABDOMEN: Soft, no tenderness. EXTREMITIES: No clubbing, cyanosis, or edema. NEUROLOGIC: Intact baseline that is for her with her short-term memory deficit. LABORATORY DATA: Sodium 125, potassium 3.6, BUN and creatinine 18 and 0.5, blood sugar 126. Magnesium good at 2.2. IMPRESSION AND PLAN: Syndrome of inappropriate antidiuretic hormone secretion; dementia; Alzheimer type, seeing Dr. Lindsay for such; neurodegenerative disorder. Abdominal pain seems to be resolved for now. Bone scan, CT scan of the chest were negative for any type of sign of malignancy except for mild emphysema. We will continue with saline for now. Repeat her labs in the morning and hopefully ready maybe possibly to a [facility] for her dementia evaluation with Dr. Lindsay. MARYA MAJOR MD DR: ALYSSA/maryann JOB#: [id number] / [id number]
[2020-01-06 20:33] VITALS: BP 116/57
[2020-01-06] MEDS: traMADol 50 MG TABLET PO PRN (20:47)
[2020-01-06] MEDS: EZETIMIBE 10 MG TABLET PO SCH (20:48)
[2020-01-07] MEDS: IV NORMAL SALINE 1,000ML 1,000 ML IV SCH (02:50)
[2020-01-07 05:20] VITALS: BP 107/61
[2020-01-07] MEDS: LEVOTHYROXINE 75 MCG TABLET PO SCH (05:40)
[2020-01-07 06:28] LABS: CALCIUM 8.1 mg/dL (8.5-10.1); CREATININE 0.6 mg/dL (0.6-1.0); GFR 95.5; POTASSIUM 3.6 mmol/L (3.5-5.1)
[2020-01-07] MEDS: CARVEDILOL 12.5 MG TABLET PO SCH ×3 (09:11→21:08)
[2020-01-07] MEDS: MEMANTINE 10 MG TABLET. PO SCH ×2 (09:11→21:08)
[2020-01-07] MEDS: PANTOPRAZOLE 40 MG TABLET. PO SCH (09:11)
[2020-01-07] MEDS: DEMECLOCYCLINE HCL 150 MG TABLET. PO SCH ×2 (09:11→21:09)
[2020-01-07] MEDS: ONDANSETRON ODT 4 MG TAB.RAPDIS PO PRN ×2 (09:11→18:01)
[2020-01-07] MEDS: APIXABAN 5 MG TABLET. PO SCH ×2 (09:12→21:08)
[2020-01-07] MEDS: MULTIVITAMIN with MINERAL TABLET. PO SCH (09:12)
[2020-01-07 11:08] VITALS: BP 108/63
[2020-01-07 15:47] VITALS: BP 124/69
[2020-01-07 19:59] VITALS: BP 138/61
[2020-01-07] MEDS: EZETIMIBE 10 MG TABLET PO SCH (21:07)
[2020-01-07] MEDS: cloNIDine HCL 0.1 MG TABLET PO PRN (21:08)
[2020-01-07] MEDS: traMADol 50 MG TABLET PO PRN (21:08)
[2020-01-08 05:35] VITALS: BP 107/67
[2020-01-08] MEDS: LEVOTHYROXINE 75 MCG TABLET PO SCH (05:59)
[2020-01-08] MEDS: ONDANSETRON ODT 4 MG TAB.RAPDIS PO PRN (05:59)
--- NOTE | 2020-01-08 06:38 | PDOC ---
Exam Note: Jayden Note: This note is a late entry for 01/05/2020 covers elements not covered in my initial note. Subjective: The patient was reviewed on telehealth rounds due to COVID-19 restrictions on the unit in the evening of 01/05/2020 with Rosa RUEDA. Discussed with nursing staff, reviewed the chart. The patient remains confused, otherwise, pleasant, cooperative, redirectable. Review of Systems: Ambulation impaired. No CV, , pulmonary, eye system symptoms on review. Mental Status Exam: Oriented to herself and situation. Insight and judgment, recent and remote memory, attention and concentration, fund of knowledge is poor consistent with her diagnoses. Laboratory Data: Reviewed. Impression: Major neurocognitive disorder Alzheimer, vascular with delusion, depression, behavioral disturbance. Anxiety disorder unspecified. Impulse control disorder unspecified. Plan: No change from initial note. Assessment: Vital Signs/I&O: Vital Signs Date Time Temp Pulse Resp B/P (MAP) Pulse Ox O2 Delivery O2 Flow Rate FiO2 01/08/20 05:35 98.0 73 18 107/67 (80) 94 Nasal Cannula 2.0 I & O 01/07/20 01/07/20 01/08/20 15:00 23:00 07:00 Intake Total 480 ml 480 ml Balance 480 ml 480 ml Current Medications: I have reviewed the current psychotropics carefully including drug interactions. Risk benefit ratio favors no change other than as noted in my dictated progress note. Diagnosis: Problems: (1) Dementia, vascular, with depression (2) Anxiety disorder, unspecified (3) Impulse control disorder, unspecified (4) Dementia, vascular, with delusions (5) Dementia in Alzheimer's disease with depression (6) Dementia of the Alzheimer's type with early onset with behavioral disturbance (7) Major neurocognitive disorder (8) Dementia in Alzheimer's disease with delusions NAHED PATEL MD Jan 08, 2020 06:38
[2020-01-08 06:57] LABS: CALCIUM 8.6 mg/dL (8.5-10.1); CREATININE 0.6 mg/dL (0.6-1.0); GFR 95.5; POTASSIUM 3.4 mmol/L (3.5-5.1)
[2020-01-08] MEDS: DEMECLOCYCLINE HCL 150 MG TABLET. PO SCH ×2 (08:50→19:59)
[2020-01-08] MEDS: PANTOPRAZOLE 40 MG TABLET. PO SCH (08:50)
[2020-01-08] MEDS: MEMANTINE 10 MG TABLET. PO SCH ×2 (08:50→19:58)
[2020-01-08] MEDS: MULTIVITAMIN with MINERAL TABLET. PO SCH (08:50)
[2020-01-08] MEDS: CARVEDILOL 12.5 MG TABLET PO SCH ×2 (08:50→14:03)
[2020-01-08] MEDS: APIXABAN 5 MG TABLET. PO SCH ×2 (08:50→19:58)
[2020-01-08] MEDS: traMADol 50 MG TABLET PO PRN ×2 (08:54→19:59)
--- NOTE | 2020-01-08 09:40 | NUR ---
NURSING NOTE THIS NURSE TOOK A CALL FROM PT FAMILY MEMBER STATING THAT HER MOTHER CALLED AND TOLD HER SHE IS HAVING TROUBLE BREATHING. THIS NURSE WENT TO EVALUATE PT. PT OXYGEN AT 92% PT CURRENTLY ON 4L. PT NURSE IN ANOTHER ROOM. PHONED DR MAJOR. ORDERS OBTAINED FOR CXR, EKG, 20MG IV LASIX X1 DOSE, DUONEB, CBC, CMP, BNP, TROP. WILL NOTIFY PT NURSE OF ORDERS. PAGED FOR RESPIRATORY. MOHIT REID.
--- NOTE | 2020-01-08 09:41 | PN ---
DATE: SUBJECTIVE: The patient ____ severe hyponatremia, seems to be resting comfortably. We got her sodium up to 125 with demeclocycline. The patient is still a little bit confused, up and down with her emotions, very tearful at times and the like. The next step is to see whether or not once we stop the IV normal saline, whether or not her sodium will stay up in a reasonable range for discharge. She is on a regular diet, but she needs to be on a fluid restriction, double check on that and also to make sure along with the demeclocycline keeps her sodium up. OBJECTIVE: GENERAL: Otherwise, she is alert, a little bit confused. LUNGS: Diminished, but clear. CARDIOVASCULAR: Regular sinus rhythm, S1, S2, without murmur, rub, thrill or extra heart sound. ABDOMEN: Soft, nontender. EXTREMITIES: No clubbing, cyanosis or edema. SKIN: Dry. NEUROLOGIC: As noted. In any case, we will continue to make further evaluation on her electrolytes and hopefully ready for discharge here and she has also been seen by Dr. Lindsay for her psychiatric issues. IMPRESSION: Therefore of hyponatremia, epigastric pain with nausea resolved, dementia, Alzheimer type with paranoid ideation, impulse control, major neurocognitive disorder. PLAN: As above. Continue to monitor her accordingly and continue with fluid restriction and demeclocycline. MARYA MAJOR MD DR: ALYSSA/maryann JOB#: [id number] / [id number]
[2020-01-08] MEDS ORDERED: FUROSEMIDE 20 MG/2 ML VIAL IVP ONE (09:45)
[2020-01-08 09:56] LABS: BASO % 0 % (0-3); EOS # 0.1 x10^3/uL (0.0-0.7); EOS % 1 % (0-3); HEMATOCRIT 32.4 % (36.0-47.0); HEMOGLOBIN 11.1 g/dL (12.0-15.5); LYMPH # 2.1 x10^3/uL (1.0-4.8); LYMPH % 22 % (24-48); MEAN CORPUSCULAR HEMOGLOBIN 33 pg (25-35); MEAN CORPUSCULAR HGB CONC 34 g/dL (31-37); MEAN CORPUSCULAR VOLUME 95 fL (79-100); MONO % 11 % (0-9); NEUT # 6.1 x10^3uL (1.8-7.7); NEUT % 66 % (31-73); PLATELET COUNT 321 x10^3/uL (140-400); RED BLOOD COUNT 3.41 x10^6/uL (3.50-5.40); WHITE BLOOD COUNT 9.3 x10^3/uL (4.0-11.0)
[2020-01-08] MEDS ORDERED: IPRATRPIUM/ALBUTEROL 0.5/2.5MG 3 ML NEBU. ONE (10:07)
[2020-01-08] MEDS: IPRATRPIUM/ALBUTEROL 0.5/2.5MG 3 ML NEBU. NEB SCH ×4 (10:13→20:19)
[2020-01-08 10:19] LABS: ALBUMIN 3.4 g/dL (3.4-5.0); TOTAL BILIRUBIN 0.6 mg/dL (0.2-1.0); TOTAL PROTEIN 7.2 g/dL (6.4-8.2)
[2020-01-08 10:33] LABS: DIRECT BILIRUBIN 0.3 mg/dL (0.0-0.2)
[2020-01-08 10:39] VITALS: BP 133/76
--- NOTE | 2020-01-08 10:42 | RAD ---
Single AP view of the chest. Comparison: 01/01/2020. Indication: Shortness of air Findings: The heart is at the upper limits of normal but stable. No pneumothorax. There are trace bibasilar effusions. There is increasing pulmonary vascular congestion. Impression: 1. Trace bibasilar effusions with increasing pulmonary vascular congestion. Electronically signed by: Danie Vizcarra MD (01/08/2020 10:39 AM) [id number]
--- NOTE | 2020-01-08 12:13 | NUR ---
NSG NOTE; SOA EPISODE AT 0940, PT ANXIOUS AND SOA. WHEEZING. DR MAJOR HERE AND NOTIFIED. HE SAW PT. NEW ORDERS NOTED. PT RECEIVED RESP TX AND HAS CALMED DOWN. BREATHING NORMAL AT THIS TIME.
--- NOTE | 2020-01-08 14:58 | NUR ---
NURSING NOTE TAKING OVER PT CARE AT THIS TIME. REPORT FROM MOHIT MCGOVERN. MOHIT REID.
[2020-01-08 15:26] VITALS: BP 94/57
--- NOTE | 2020-01-08 15:31 | EKG ---
[address] [address] Test Date: 2020-01-08 Test Time: 10:03:17 Pat Name: AGNIESZKA MOSS Department: Room: 124 A Gender: F Care Clinician: : [id number] Requested By: MARYA MAJOR Order Number: [id number] Reading MD: Measurements Intervals [place] Rate: 76 P: 19 TX: 172 QRS: 66 QRSD: 104 T: 61 QT: 408 QTc: 464 Interpretive Statements SINUS RHYTHM INCOMPLETE RIGHT BUNDLE BRANCH BLOCK QRS(T) CONTOUR ABNORMALITY CONSIDER INFERIOR MYOCARDIAL DAMAGE T ABNORMALITY IN ANTEROLATERAL LEADS ABNORMAL ECG RI6.01 No previous ECG available for comparison
--- NOTE | 2020-01-08 15:35 | RAD ---
Indication: Reason: SOA ELEV TROPONIN / Spl. Instructions: / History: Technique: Static images are obtained of both lungs following IV administration of 5.5 mCi of 99 M technetium MAA. Comparison: Chest x-ray from same day Findings: There are some scattered perfusion defects seen within the bilateral lungs. This is a common finding but cannot assess whether this is matched or mismatched given lack of ventilation. Impression: 1. Overall intermediate probability of pulmonary embolus. Electronically signed by: Kirk Jovel MD (01/08/2020 3:32 PM) [id number]
--- NOTE | 2020-01-08 19:28 | PN ---
DATE: SUBJECTIVE: An 84-year-old female today had problems with increased shortness of breath. The patient was thought to be a little bit fluid overloaded and we have been giving her sodium IV to help raise her hyponatremic situation. The patient otherwise has been doing reasonably well and we diuresed her. The x-rays did show that she did have some fluid accumulation, so we gave her 20 of Lasix. Her sodium was held steady at 129, potassium of 3.4. Liver enzymes are slightly elevated, may be from fluid overload. Cardiac enzymes are slightly elevated. BNP 437. Electrocardiogram unread. The patient basically fairly stable. She is her usual self, little bit confused, obviously she is not able to take care of herself and make good decisions. She keeps repeating herself, is very forgetful from 1 minute to the next as to what she was just talking about, so she does have dementia Alzheimer's type and neurocognitive disorder per Dr. Lindsay. OBJECTIVE: VITAL SIGNS: Blood pressure 94/57, respiratory rate 20, pulse 72, afebrile. GENERAL: The patient is alert, slight disorientation, but speech fluent for her and a good conversation, but she does lose her chain of thought. LUNGS: The patient's lungs are diminished. CARDIOVASCULAR: Regular sinus rhythm. ABDOMEN: Soft, nontender, no rebound or guarding. Positive bowel sounds, no hepatosplenomegaly was noted. EXTREMITIES: No clubbing, cyanosis. Trace edema. NEUROLOGIC: Baseline for her. We will go ahead and continue to monitor the patient. 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 BNP was elevated, but as noted she was diuresed, but we will do this gently as her blood pressure also was dropping. PLAN: We will keep her on the demeclocycline and reduce some of her blood pressure pills and make further evaluation on her in the a.m. MARYA MAJOR MD DR: ALYSSA/maryann JOB#: [id number] / [id number]
--- NOTE | 2020-01-08 19:30 | PN ---
DATE: 01/08/2020 SUBJECTIVE: An 84-year-old female is in with as noted hyponatremia and the like. The patient had a PE test and did show an overall intermediate probability of PE, even though she is on Eliquis. The patient will get venous Dopplers because of her shortness of breath and swelling to her legs and increased the Eliquis to 10 mg twice a day, although it has been on 5 due to the fact that she may have a blood clot until we get the venous Dopplers back, we will give her slightly the higher doses for a few doses and then cut it back as more information is obtained. MARYA MAJOR MD DR: ALYSSA/maryann JOB#: [id number] / [id number]
[2020-01-08 19:50] VITALS: BP 118/71
[2020-01-08] MEDS: EZETIMIBE 10 MG TABLET PO SCH (19:58)
[2020-01-08] MEDS: CARVEDILOL 6.25 MG TABLET PO SCH (20:01)
[2020-01-08 22:59] VITALS: BP 103/65
[2020-01-09] MEDS: IPRATRPIUM/ALBUTEROL 0.5/2.5MG 3 ML NEBU. NEB SCH ×4 (05:14→20:00)
[2020-01-09] MEDS: LEVOTHYROXINE 75 MCG TABLET PO SCH (05:37)
[2020-01-09 06:19] VITALS: BP 112/56
[2020-01-09 06:41] LABS: CREATININE 0.7 mg/dL (0.6-1.0); GFR 79.9; POTASSIUM 3.5 mmol/L (3.5-5.1)
[2020-01-09] MEDS: CARVEDILOL 6.25 MG TABLET PO SCH ×2 (08:19→16:34)
[2020-01-09] MEDS: APIXABAN 5 MG TABLET. PO SCH ×2 (08:20→20:36)
[2020-01-09] MEDS: MULTIVITAMIN with MINERAL TABLET. PO SCH (08:20)
[2020-01-09] MEDS: MEMANTINE 10 MG TABLET. PO SCH ×2 (08:20→21:00)
[2020-01-09] MEDS: DEMECLOCYCLINE HCL 150 MG TABLET. PO SCH ×2 (08:20→20:36)
[2020-01-09] MEDS: PANTOPRAZOLE 40 MG TABLET. PO SCH (08:20)
--- NOTE | 2020-01-09 08:45 | RAD ---
Examination: Bilateral Lower Extremity Venous Doppler Ultrasound History: pain Comparison: None Procedure: Mohan scale, color flow 2D and spectal waveform analysis images are obtained with and without compression in the area of the common femoral vein, superficial femoral vein - femoral vein junction, main femoral vein (superficial femoral vein) and popliteal vein. Veins of the proximal calf are also imaged. Findings: There is normal duplex flow, color flow and compressibility of all visualized vein segments. No evidence of deep venous thrombus is present. Impression: No evidence of DVT in the bilateral lower extremity venous system. Electronically signed by: Saurabh Kahn MD (01/09/2020 8:42 AM) [id number]
[2020-01-09 09:41] VITALS: BP 102/60
[2020-01-09 09:43] VITALS: BP 87/60
[2020-01-09 10:05] LABS: BASO # 0.1 x10^3/uL (0.0-0.2); BASO % 1 % (0-3); EOS % 0 % (0-3); HEMATOCRIT 32.9 % (36.0-47.0); LYMPH # 1.3 x10^3/uL (1.0-4.8); LYMPH % 15 % (24-48); MEAN CORPUSCULAR HEMOGLOBIN 32 pg (25-35); MEAN CORPUSCULAR HGB CONC 34 g/dL (31-37); MEAN CORPUSCULAR VOLUME 96 fL (79-100); MONO # 0.7 x10^3/uL (0.0-1.1); MONO % 9 % (0-9); NEUT # 6.4 x10^3uL (1.8-7.7); NEUT % 75 % (31-73); PLATELET COUNT 356 x10^3/uL (140-400); RED BLOOD COUNT 3.41 x10^6/uL (3.50-5.40); RED CELL DISTRIBUTION WIDTH 14.1 % (11.5-14.5); WHITE BLOOD COUNT 8.5 x10^3/uL (4.0-11.0)
[2020-01-09] MEDS: MIDODRINE 2.5 MG TABLET PO SCH ×2 (13:00→16:34)
[2020-01-09 14:26] VITALS: BP 135/83
[2020-01-09] MEDS: EZETIMIBE 10 MG TABLET PO SCH (21:00)
[2020-01-09 21:04] VITALS: BP 137/77
[2020-01-09 22:56] VITALS: BP 144/75
--- NOTE | 2020-01-10 04:04 | NUR ---
PT REMAIN ALERT AND ORIENT TIMES THREE. VSS, AFEBRILE. ST-SA PER MONITOR. DENIES PAIN. DOES GET SOB WITH EXERTION. ON 2 LITERS NC. THE PLAN IS FOR PT TO TX TO [facility] TODAY. PT VERY TALKATIVE WHEN IN ROOM. FR OF 1800 NOT EXCEEDED. SLOW PROGRESS, WILL CONTINUE TO MONITOR.
[2020-01-10] MEDS: IPRATRPIUM/ALBUTEROL 0.5/2.5MG 3 ML NEBU. NEB SCH ×4 (05:12→19:12)
[2020-01-10] MEDS: LEVOTHYROXINE 75 MCG TABLET PO SCH (05:38)
[2020-01-10] MEDS: MIDODRINE 2.5 MG TABLET PO SCH ×2 (05:41→12:18)
[2020-01-10 06:17] VITALS: BP 134/86
--- NOTE | 2020-01-10 06:49 | PN ---
DATE: SUBJECTIVE: An 84-year-old female came in with acute on top of chronic diastolic heart failure, severe hyponatremia, probable SIADH. The patient also hypotensive as her blood pressure has dropped today down to 87/60, came back up to 135/83, respiratory rate 20, pulse 105-115, she is afebrile, oxygen saturation ____ liters. The patient has been making good progress overall. She has been out with PT, OT and making further assessment per those results. OBJECTIVE: LUNGS: Otherwise, the patient's lungs are diminished, some decreased breath sounds in the bases, but markedly improved. CARDIOVASCULAR: Regular sinus rhythm. LABORATORY DATA: Hemoglobin 11 and 32. Chemistries 132, 3.5, BUN and creatinine were stable at 20 and 0.7. Elevated liver enzymes. Cardiac enzymes are borderline. BNP elevated. She is off her IV fluids and her sodium is maintained with the demeclocycline. We started her on a little bit of midodrine to help get her blood pressure up, decreased her carvedilol. She is on Eliquis 10 mg twice a day, simply because the pulmonary V/Q scan showed intermediate probability of a clot. We will decrease that as well. IMPRESSION: Syndrome of inappropriate antidiuretic hormone secretion with a low sodium of course, hypokalemia, acute on top of chronic diastolic heart failure, intermediate probability of pulmonary embolus, generalized weakness, dementia Alzheimer type, hypokalemia, elevated liver enzymes, elevated troponin, probably secondary to the heart failure. PLAN: We will use judicious use of the water pill, as to not to drop out her sodium and yet get a balance there on her oxygenation as well. MARYA MAJOR MD DR: ALYSSA/maryann JOB#: [id number] / [id number]
[2020-01-10] MEDS: CARVEDILOL 6.25 MG TABLET PO SCH ×2 (09:17→17:11)
[2020-01-10] MEDS: MULTIVITAMIN with MINERAL TABLET. PO SCH (09:17)
[2020-01-10] MEDS: PANTOPRAZOLE 40 MG TABLET. PO SCH (09:17)
[2020-01-10] MEDS: APIXABAN 5 MG TABLET. PO SCH ×2 (09:17→19:14)
[2020-01-10] MEDS: MEMANTINE 10 MG TABLET. PO SCH ×2 (09:18→19:15)
[2020-01-10] MEDS: DEMECLOCYCLINE HCL 150 MG TABLET. PO SCH ×2 (09:18→19:16)
[2020-01-10 10:44] VITALS: BP 150/87
--- NOTE | 2020-01-10 13:25 | PN ---
DATE: SUBJECTIVE: The patient is resting fairly comfortably. Basically, she is doing some better. We are just figuring out where to discharge this patient to as we continue her IV antibiotics, so the patient is still very confused at times and her hyponatremia is improved. She is also improved on her breathing. She does have an intermediate probability of pulmonary emboli. OBJECTIVE: VITAL SIGNS: Her blood pressure is 150/87, respiratory rate 20, pulse 110, afebrile. GENERAL: The patient is alert, but kind of confused at times, keeps repeating herself, short-term memory deficit. LABORATORY DATA: Her hemoglobin is remaining stable. Her sodium has come up to 132, although today is pending. BUN and creatinine are stable at 20 and 0.7. PLAN: We will go ahead and continue to monitor her accordingly and with PT, OT and hopefully ready for discharge here soon. IMPRESSION: Chronic diastolic heart failure, hyponatremia, probable SIADH, neurocognitive disorder, abdominal pain resolved, liver enzymes elevation, hypokalemia, essential hypertension presently, continue to monitor her on that and make further evaluation. MARYA MAJOR MD DR: ALYSSA/amryann JOB#: [id number] / [id number]
[2020-01-10 13:46] LABS: CREATININE 0.6 mg/dL (0.6-1.0); GFR 95.5
[2020-01-10 13:49] LABS: POTASSIUM 2.9 mmol/L (3.5-5.1)
[2020-01-10] MEDS: POTASSIUM CHLORIDE 10MEQ 100 ML IV SCH ×4 (14:00→17:00)
[2020-01-10] MEDS: POTASSIUM CHLORIDE 20 MEQ TABLET.ER. PO SCH ×5 (14:00→18:00)
[2020-01-10] MEDS ORDERED: POTASSIUM CHLORIDE 10MEQ 100 ML IV SCH ×2 (14:00)
[2020-01-10] MEDS ORDERED: POTASSIUM CHLORIDE 20 MEQ TABLET.ER. PO ONE (14:00)
[2020-01-10 15:01] VITALS: BP 122/75
--- NOTE | 2020-01-10 17:28 | NUR ---
PT DID WELL TODAY AMBULATING AROUND ROOM. REPLACE POTASSIUM PO AND WILL RECHECK AT 1999 TONIGHT. WILL CONTINUE TO ASSESS.
[2020-01-10] MEDS: CARVEDILOL 12.5 MG TABLET PO SCH (19:14)
[2020-01-10] MEDS: EZETIMIBE 10 MG TABLET PO SCH (19:14)
[2020-01-10 20:29] VITALS: BP 112/89
[2020-01-10 22:02] VITALS: BP 135/79
[2020-01-11 05:45] VITALS: BP 164/92
[2020-01-11] MEDS: LEVOTHYROXINE 75 MCG TABLET PO SCH (05:58)
[2020-01-11] MEDS: IPRATRPIUM/ALBUTEROL 0.5/2.5MG 3 ML NEBU. NEB SCH ×5 (06:15→21:24)
--- NOTE | 2020-01-11 06:16 | NUR ---
was not able to see this pt this morning due to EKGs both routine and JUAN JOSÉ and a Stat SPO2 check on another pt on whom it was hard to get a reading.
--- NOTE | 2020-01-11 06:29 | NUR ---
PT FOUND TO BE HIDING A LARGE SUM OF TRAN IN A TISSUE BOX IN HER ROOM. PT STATES, "I ALWAYS HIDE MY VALUABLES. I WAS GOING TO THROW IT OUT THE WINDOW TO MY SON WHO IS VISITING FROM [place]." TRAN COUNTED BY NURSING SUP AND SECURITY, TOTALING $1489. TRAN PLACED IN VALUABLES ENVELOPE AND LOCKED IN THE SAFE.
[2020-01-11 09:24] LABS: CALCIUM 9.4 mg/dL (8.5-10.1); CREATININE 0.7 mg/dL (0.6-1.0); GFR 79.9; POTASSIUM 3.9 mmol/L (3.5-5.1)
[2020-01-11] MEDS: PANTOPRAZOLE 40 MG TABLET. PO SCH (09:30)
[2020-01-11] MEDS: DEMECLOCYCLINE HCL 150 MG TABLET. PO SCH ×2 (09:31→20:19)
[2020-01-11] MEDS: CARVEDILOL 12.5 MG TABLET PO SCH ×2 (09:31→17:47)
[2020-01-11] MEDS: MEMANTINE 10 MG TABLET. PO SCH ×2 (09:33→20:19)
[2020-01-11] MEDS: MULTIVITAMIN with MINERAL TABLET. PO SCH (09:33)
[2020-01-11] MEDS: APIXABAN 5 MG TABLET. PO SCH ×2 (09:33→20:19)
--- NOTE | 2020-01-11 09:45 | NUR ---
Pt c/o severe pain when IV flushed. IV had resistance when flushed. IV discontinued. Pressure applied for 5 min as IV site began to bleed moderately.
[2020-01-11 10:10] VITALS: BP 170/76
[2020-01-11 14:25] VITALS: BP 131/79
[2020-01-11] MEDS: EZETIMIBE 10 MG TABLET PO SCH (20:19)
[2020-01-11 21:06] VITALS: BP 176/81
[2020-01-11 22:40] VITALS: BP 158/76
--- NOTE | 2020-01-12 01:29 | PN ---
DATE: SUBJECTIVE: An 84-year-old female in with severe hyponatremia, probable SIADH. The patient has been off her saline and put on demeclocycline which has helped maintain her sodium now up to 136 from 116, potassium dropped down to 2.7. Electrolyte replacement. Continue to monitor her on that. OBJECTIVE: GENERAL: The patient is still mildly confused and short-term memory deficit. VITAL SIGNS: Blood pressure vacillating to 170 systolic down to 130, diastolic approximately 75; respiratory rate 20; pulse 98, afebrile. HEENT: The patient's head was atraumatic, normocephalic. Eyes: PERRLA. LUNGS: Diminished throughout, poor movement of air, but clear. CARDIOVASCULAR: Stable. ABDOMEN: Soft, nontender. The patient did have a slight elevated troponins, but probably related to a mild case of heart failure as the patient was given normal saline at first to get her sodium up presently 136, ____ 3.9, BUN and creatinine 23 and 0.7. The patient's hemoglobin 11 and 32. Otherwise, the patient is resting comfortably, making good progress. Decision being made to take the patient. The patient has been seen by Dr. Lindsay who notes neurocognitive loss. The patient still wants to go home and arrangements will need to be made through psychiatric social worker supervisor about the complexity of that social situation. Her aguirre checkup has been negative. She did have a positive D-dimer. She did have positive pulmonary perfusion V/Q scan, showed overall intermediate probability which would go along with some of her respiratory problems. The patient increased her Eliquis because of the increase in the probability of pulmonary emboli. DVTs were negative. Carvedilol was increased to 25 b.i.d. because of the increase in blood pressure. The patient continues on demeclocycline, breathing treatments and Protonix. IMPRESSION: Therefore, syndrome of inappropriate antidiuretic hormone; hypokalemia; acute on top of chronic diastolic heart failure; intermediate probability of pulmonary emboli; generalized weakness; dementia, Alzheimer type; elevated liver enzymes; elevated troponins, probably secondary to the heart failure. PLAN: Continue to monitor her accordingly and hopefully for transfer dismissal in the a.m. MARYA MAJOR MD DR: ALYSSA/maryann JOB#: [id number] / [id number]
[2020-01-12] MEDS: traMADol 50 MG TABLET PO PRN (01:58)
[2020-01-12] MEDS: ONDANSETRON ODT 4 MG TAB.RAPDIS PO PRN (01:58)
[2020-01-12 05:02] VITALS: BP 133/87
[2020-01-12] MEDS: LEVOTHYROXINE 75 MCG TABLET PO SCH (05:32)
[2020-01-12] MEDS: IPRATRPIUM/ALBUTEROL 0.5/2.5MG 3 ML NEBU. NEB SCH ×2 (06:14→11:26)
[2020-01-12] MEDS: MULTIVITAMIN with MINERAL TABLET. PO SCH (09:10)
[2020-01-12] MEDS: PANTOPRAZOLE 40 MG TABLET. PO SCH (09:10)
[2020-01-12] MEDS: DEMECLOCYCLINE HCL 150 MG TABLET. PO SCH (09:11)
[2020-01-12] MEDS: MEMANTINE 10 MG TABLET. PO SCH (09:11)
[2020-01-12] MEDS: APIXABAN 5 MG TABLET. PO SCH (09:11)
[2020-01-12] MEDS: CARVEDILOL 12.5 MG TABLET PO SCH (09:11)
[2020-01-12 11:39] VITALS: BP 99/80
[2020-01-12] MEDS ORDERED: Demeclocycline Hcl PO (11:59)
[2020-01-12] MEDS ORDERED: ONDA4TAB12 PO (11:59)
[2020-01-12] MEDS ORDERED: PANT40TA6 PO (11:59)
--- NOTE | 2020-01-12 12:02 | DISCH ---
HOME HEALTH DISCHARGE/MEDS DISCHARGE INFORMATION: Discharge Date: Jan 12, 2020 Final Diagnosis: Problems Medical Problems: (1) Hyponatremia Status: Acute Condition on Discharge: Stable CODE STATUS: Code Status: Full HOME HEALTH: Face to Face: I certify this patient is under my care and that I, or a nurse practitioner or physician's clinical assistant professor working with me, had a face to face encounter that meets the physician face to face encounter requirements with this patient on 01/12/2020. Medical Condition(s): CHF (hypokalemia,hyponatremia,LUIS), Dementia, Other Group Home For: Assess Cardiopulm Status, Assess & Educate Safety, Assess/Skilled Observatio, Medication Management Physical Therapy For: Evalulation/Treatment Homebound Status Met By: Poor coordination w/ amb., Unsteady balance w/ amb,, Poor cognition POST DISCHARGE ORDERS: Activity Instructions for Disc: No restrictions Weight Bearing Status after Di: No restrictions DIET AFTER DISCHARGE: Regular CHECKS AFTER DISCHARGE: Checks after discharge: Check blood press - daily CERTIFICATION STATEMENT: Certification Statement: Based on the above finding, I certify that this patient is confined to the home and needs intermittent long-term care, physical therapy and/or speech therapy, or continues to need occupational therapy.~ This patient is under my care, and I have initiated the establishment of the plan of care.~ This patient will be followed by myself or a community physician who will periodically review the plan of care. DISCHARGE MEDICATIONS: Home Meds Active Scripts [Demeclocycline Hcl] 150 MG TABLET No Conflict Check, 150 MG PO Q12HR for maintain sodium level for 30 Days, #60 3 Refills Prov:MARYA MAJOR MD 01/12/20 Reported Medications Tramadol Hcl (TRAMADOL HCL) 50 Mg Tablet, 50 MG PO PRN Q6HRS PRN for PAIN LAST DOSE GIVEN: DATE: TIME: NEXT DOSE DUE: DATE: TIME: 01/01/20 Memantine HCl (Memantine HCl) 10 Mg Tablet, 10 MG PO BID for Dementia LAST DOSE GIVEN: DATE: TIME: NEXT DOSE DUE: DATE: TIME: 01/01/20 Hydrochlorothiazide (Hydrochlorothiazide) 12.5 Mg Capsule, 12.5 MG PO DAILY for water pill LAST DOSE GIVEN: DATE: TIME: NEXT DOSE DUE: DATE: TIME: 02/11/19 Levothyroxine Sodium (SYNTHROID) 75 Mcg Tablet, 75 MCG PO DAILY for hypothyroid LAST DOSE GIVEN: DATE: TIME: NEXT DOSE DUE: DATE: TIME: 02/11/19 Nifedipine (NIFEDIPINE ER) 30 Mg Tablet.er, 30 MG PO DAILY for Hypertension LAST DOSE GIVEN: DATE: TIME: NEXT DOSE DUE: DATE: TIME: 07/20/17 Clonidine Hcl (CLONIDINE HCL) 0.1 Mg Tablet, 0.1 MG PO PRN Q6HRS PRN for HIGH BLOOD PRESSURE TAKE WHEN SBP >180 LAST DOSE GIVEN: DATE: TIME: NEXT DOSE DUE: DATE: TIME: 07/20/17 Carvedilol (CARVEDILOL) 25 Mg Tablet, 25 MG PO TID for HYPERTENSION LAST DOSE GIVEN: DATE: TIME: NEXT DOSE DUE: DATE: TIME: 07/20/17 Nitroglycerin (NITROGLYCERIN SubLingual) 0.4 Mg Tab.subl, 0.4 MG SL PRN Q5MIN PRN for CHEST PAIN LAST DOSE GIVEN: DATE: TIME: NEXT DOSE DUE: DATE: TIME: 02/09/14 Apixaban (ELIQUIS) 5 Mg Tablet, 5 MG PO BID for Blood thinner LAST DOSE GIVEN: DATE: TIME: NEXT DOSE DUE: DATE: TIME: 06/09/13 Pravastatin Sodium (PRAVACHOL) 40 Mg Tablet, 40 MG PO QHS for High Cholesterol LAST DOSE GIVEN: DATE: TIME: NEXT DOSE DUE: DATE: TIME: 06/09/13 Ezetimibe (ZETIA) 10 Mg Tablet, 10 MG PO HS for High Cholesterol LAST DOSE GIVEN: DATE: TIME: NEXT DOSE DUE: DATE: TIME: 06/09/13 Multivitamin (MULTI-VITAMIN DAILY) 1 Each Tablet, 1 TAB PO DAILY for Supplement LAST DOSE GIVEN: DATE: TIME: NEXT DOSE DUE: DATE: TIME: 06/09/13 MARYA MAJOR MD Jan 12, 2020 12:02
--- NOTE | 2020-01-12 13:12 | NUR ---
spoke with pt daughter, pt is going to go home with home health. daughter agreeable.
--- NOTE | 2020-01-12 14:32 | NUR ---
NSG NOTE; TRAN RETURNED TO PT I WITNESSED $1489 TRAN RETURNED TO PT AT 1430 BY PT'S NURSE, CONNIE RUEDA. PT IS DUE TO BE DISCHARGED HOME TODAY
--- NOTE | 2020-01-12 14:36 | NUR ---
$1489 returned to pt. discharge instructions reviewed with daughter. tele dc'd. all belongings sent with pt.
[2020-01-12] MEDS ORDERED: APIXABAN 5 MG TABLET. PO SCH (21:00)
--- NOTE | 2020-01-14 18:00 | DS ---
DATE OF DISCHARGE: 01/12/2020 HOSPITAL COURSE: An 84-year-old female who initially came in to the Emergency Room. She had extreme lightheadedness. Her blood pressure was elevated at 190. Her sodium had dropped down to 118. The patient was placed on a normal saline drip. Blood pressure was monitored carefully. She does have dementia, Alzheimer type. She was seen by Dr. Lindsay, who noted neurocognitive deterioration. The patient's hemoglobin did drop down to 11. Her potassium dropped down to 2.9, but all those were corrected with her electrolyte replacement protocol. Coronaviruses were negative. The patient also complained of abdominal pain. She had nausea and vomiting in the bed. The patient had mild infiltrates bilaterally in the right greater than left and hepatomegaly as noted on a CT scan of her abdomen and pelvis. The patient's CT of the head was basically unremarkable or adjusted for age with deterioration, and she was noted to have possible SIADH. We did a bone scan, which showed L2 vertebral ____ suggesting central compression fracture of that bone. ____ had been complaining of back pain and had been falling at home. Consequently that is probably the etiology there. She had a positive D-dimer, and overall, there was an intermediate probability for a PE. She was placed on an increased Eliquis at 10 mg to get her levels up. Venous Dopplers were negative. The patient actually had a very complex course of events. The patient's chest x-ray showed bibasilar effusions with increased pulmonary vascular congestion. The patient otherwise, considering everything, made excellent progress during the rest of her hospitalization, as she was diuresed in the usual fashion. Her EKG was unremarkable showing normal sinus rhythm. The patient otherwise continued to be monitored carefully and had numerous medical diagnoses, but actually wanted to be discharged home. She had family members there and that would help her with her situation. IMPRESSION: Syndrome of inappropriate antidiuretic hormone secretion; hypokalemia; acute on top of chronic diastolic heart failure; intermediate probability of pulmonary emboli; generalized weakness; dementia, Alzheimer type; elevated liver enzymes; elevated troponins secondary to heart failure; change in mental status; lightheadedness; syncope; hypertensive urgency; hyperglycemia. PLAN: The patient will be discharged home on a regular diet, decrease her fluid intake for now. Her last blood pressure was 99/80, respiratory rate 20, pulse 87, afebrile, oxygen saturation 95% on room air. DISCHARGE INSTRUCTIONS: She will be monitored carefully as an outpatient and make further evaluation on her as indicated. MARYA MAJOR MD DR: ALYSSA/maryann JOB#: [id number] / [id number]
== END 2020-01-12 14:20 | disposition home health service (06) | DRG 643 ==
LOC: ER 16:46 → ICU 18:05 → 1 SOUTH 01-05 22:30
PROVIDERS: ADMIT Family Medicine; ATTEND Family Medicine
DX: E22.2 Syndrome of inappropriate secretion of antidiuretic hormone (principal); I50.33 Acute on chronic diastolic (congestive) heart failure; I26.99 Other pulmonary embolism without acute cor pulmonale; F01.51 Vascular dementia, unspecified severity, with behavioral disturbance; F02.81 Dementia in other diseases classified elsewhere, unspecified severity, with behavioral disturbance; I11.0 Hypertensive heart disease with heart failure; E03.9 Hypothyroidism, unspecified; E78.00 Pure hypercholesterolemia, unspecified; E86.0 Dehydration; F32.9 Major depressive disorder, single episode, unspecified; F41.9 Anxiety disorder, unspecified; F60.0 Paranoid personality disorder; F63.9 Impulse disorder, unspecified; G30.9 Alzheimer's disease, unspecified; I16.0 Hypertensive urgency; I25.10 Atherosclerotic heart disease of native coronary artery without angina pectoris; I25.2 Old myocardial infarction; I48.0 Paroxysmal atrial fibrillation; J44.9 Chronic obstructive pulmonary disease, unspecified; E87.6 Hypokalemia; Z20.828 Contact with and (suspected) exposure to other viral communicable diseases; Z82.0 Family history of epilepsy and other diseases of the nervous system; Z83.3 Family history of diabetes mellitus; Z86.73 Personal history of transient ischemic attack (TIA), and cerebral infarction without residual deficits; Z87.891 Personal history of nicotine dependence; Z90.710 Acquired absence of both cervix and uterus; M19.90 Unspecified osteoarthritis, unspecified site; Z88.0 Allergy status to penicillin; Z88.7 Allergy status to serum and vaccine; Z88.8 Allergy status to other drugs, medicaments and biological substances; Z86.718 Personal history of other venous thrombosis and embolism; Z79.01 Long term (current) use of anticoagulants
CPT/HCPCS: 36415; 70450; 71045; 71250; 74176; 78300; 78580; 80048; 80053; 80076; 81001; 82088; 83690; 83735; 83880; 83930; 83935; 84132; 84484; 85025; 85610; 85730; 93005; 93970; 94640; 94760; 96360; 96361; 96374; A9503; A9540; J0696; J0780; J3480; Q0162; 97530; 99285-25; J7030; U0003-CS

== ENCOUNTER 2020-01-15 04:52 | Emergency (ER) | payer MEDICARE, OTHER ==
[~2020-01-15] VITALS: Ht 170.2 cm; Wt 68.5 kg
[2020-01-15 04:52] VITALS: BP 143/80
[~2020-01-15 04:52] MED LIST changes: +Demeclocycline Hcl PO; +MEMA10TA56 PO; +ONDA4TAB12 PO; +PANT40TA6 PO; +TRAM50TA PO
--- NOTE | 2020-01-15 05:23 | PHYS DOC ---
Past History Past Medical History: COPD, Dementia, Hypertension, ME, Stroke Additional Past Medical Histor: Limited secondary to dementia (IRVING PALMER DO) Past Surgical History: Hysterectomy Additional Past Surgical Histo: Limited secondary to dementia (IRVING PALMER DO) Smoking: Cigarettes, Less than 1pk/day Alcohol Use: None Drug Use: None Social History Narrative: Limited secondary to dementia (IRVING PALMER DO) General Adult EDM: Chief Complaint: SHORTNESS OF BREATH HPI: HPI: 84-year-old female with past medical history of dementia, COPD, and CAD presents via EMS with report of sudden onset of shortness of breath upon waking this morning. Patient reports has had similar episodes in the past. Patient was a recent admission to [facility] for hypo-natremia. Patient denies known exposure to COVID-19. Denies fever. [employer] reviewed notes patient was tested for COVID on recent admission which was negative. Denies trauma. Patient is a poor historian. EMS reports upon their arrival patient down to 90% on room air. EMS placed patient on supplemental O2 with improvement of oxygen saturation to 95%. History of present illness limited secondary to dementia. (IRVING PALMER DO) Review of Systems: Review of Systems: Constitutional: Denies fever or chills Respiratory: Reports shortness of breath Cardiovascular: Reports chest tightness GI: Denies vomiting Neurologic: Reports malaise Review of systems limited secondary to dementia (IRVING PALMER DO) Heart Score: HEART Score for Chest Pain: HEART Score for Chest Pain Response (Comments) Value History Slighlty/Non-Suspicious 0 ECG Normal 0 Age > 65 2 Risk Factors >3 Risk Factors or Hx CAD 2 Troponin >1-<3x Normal Limit 1 Total 5 Risk Factors: Risk Factors: DM, Current or recent (<one month) smoker, HTN, HLP, family history of CAD, obesity. Risk Scores: Score 0 - 3: 2.5% MACE over next 6 weeks - Discharge Home Score 4 - 6: 20.3% MACE over next 6 weeks - Admit for Clinical Observation Score 7 - 10: 72.7% MACE over next 6 weeks - Early Invasive Strategies (IRVING PALMER DO) Current Medications: Current Meds: Current Medications Medications (Trade) Dose Ordered Sig/Sherrell Start Time Stop Time Status Last Admin Dose Admin Aspirin (Clay Aspirin) 325 mg 1X ONCE 01/15/20 05:15 01/15/20 05:16 UNV Dexamethasone Sodium Phosphate (Decadron) 10 mg 1X ONCE 01/15/20 05:15 01/15/20 05:16 UNV Sodium Chloride 1,000 ml @ 1,000 mls/hr 1X ONCE 01/15/20 05:15 01/15/20 06:14 UNV (IRVING PALMER DO) Allergies: Allergies: Allergies Coded Allergies Type Severity Reaction Last Updated Verified Penicillins Allergy Intermediate Hives 06/09/13 Yes alendronate sodium Allergy Intermediate 02/11/19 Yes amlodipine besylate Allergy Intermediate Swelling 06/09/13 Yes carisoprodol Allergy Intermediate BREAK OUT 02/09/14 Yes iodine Allergy Intermediate 08/04/13 Yes nitrofurantoin Allergy Intermediate 08/04/13 Yes sertraline HCl Allergy Intermediate Nausea 02/10/14 Yes spironolactone Allergy Intermediate 02/11/19 Yes acetaminophen Allergy Mild Rash 02/12/19 Yes Influenza Virus Vaccines Allergy Unknown ANAPHYLAXIS 09/18/15 Yes (IRVING PALMER DO) Physical Exam: PE: Constitutional: Well developed, elderly patient, anxious HENT: Normocephalic, atraumatic Eyes: Conjunctiva normal, no discharge Neck: Normal range of motion, no tenderness, supple Lungs & Thorax: Tachypnea, equal chest rise and fall CV: Tachycardia, equal radial pulses bilaterally Abdomen: Soft, no tenderness Skin: Warm, dry, no erythema, no rash Extremities: No tenderness, ROM intact, no edema Neurologic: Alert, confused, no focal deficits noted Psychologic: Affect anxious, judgment abnormal (dementia) (IRVING PALMER DO) EKG: EKG: @0503 Sinus tachycardia with sinus arrhythmia [id number], wandering baseline in V3, no ST elevation (IRVING PALMER DO) Radiology/Procedures: Radiology/Procedures: [] (IRVING PALMER DO) Course & Med Decision Making: Course & Med Decision Making Pertinent Labs and Imaging studies reviewed. (See chart for details) Elderly patient presents via EMS with report of sudden shortness of air. Reports history of COPD. Patient is a poor historian given history of dementia. Patient appears very anxious upon arrival. Patient does have some tachypnea and tachycardia. EKG with tachycardia. Labs obtained and pending at this time. Cannot exclude COVID-19 despite patient with recent testing on recent admission. COVID precautions in place. COVID testing pending. Cannot fully exclude PE given recent hospitalization. D-dimer ordered and pending. Imaging dependent on d-dimer. [facility] review also notes patient with elevated troponin and intermediate probability of PE on VQ scan from 01/08/20. Venous dopplers of BLE from 01/09/20 without signs of acute DVT. 0600- Sign out given to Dr. Roy for further evaluation and final disposition. Discussed current findings and plan with patient, who acknowledges understanding and agreement. COVID-19 CRITERIA: The patient was evaluated during the global COVID-19 pandemic, and that diagnosis was suspected/considered upon their initial presentation. Their evaluation, treatment and testing was consistent with current guidelines for patients who present with complaints or symptoms that may be related to COVID-19. (IRVING PALMER DO) Course & Med Decision Making I have received signout on the patient's emergency department care from Dr. Palmer. We discussed the history, physical exam findings, completed and pending laboratory results and imaging studies. We have also discussed the current treatment plan and expected clinical course. Please refer to further update notes for additional information regarding the patient's final diagnosis and disposition. In brief patient is an 84-year-old female who presents with chief complaint of shortness of breath. Initial vital signs noted to be hypoxic with an SPO2 saturation of 88% on room air. She was placed on 4 L nasal cannula and has been at approximately 94%. Patient's chest x-ray does show concern for viral pattern. COVID swab obtained and pending. Per chart review she was recently hospitalized 1 week ago for low sodium. CT PE study will be deferred as the patient does have an anaphylactic reaction to contrast dye and she did have a intermediate VQ scan performed a week ago. Patient has remained stable on 4 L nasal cannula and will require hospitalization. COVID-19 CRITERIA: The patient was evaluated during the global COVID-19 pandemic, and that diagnosis was suspected/considered upon their initial presentation. Their evaluation, treatment and testing was consistent with current guidelines for patients who present with complaints or symptoms that may be related to COVID-19. (JF ROY DO) Dragon Disclaimer: Dragon Disclaimer: This electronic medical record was generated, in whole or in part, using a voice recognition dictation system. (IRVING PALMER DO) Departure Departure: Impression: Primary Impression: Dyspnea Qualified Codes: R06.00 - Dyspnea, unspecified Additional Impressions: Hypoxia Suspected 2019 novel coronavirus infection Disposition: ADMITTED INPATIENT Condition: STABLE Referrals: MARYA MAJOR MD (PCP) COVID-19 Assessment COVID-19 Patient Risks: Age 65 or older: Yes Sign of co-morbidity: Yes Exp to person + for COVID: No Exp to PUI: No Travel from affected area: No Lower respiratory symptoms: Yes Fever: No (IRVING PALMER DO) Age 65 or older: Yes Sign of co-morbidity: Yes Exp to person + for COVID: No Exp to PUI: No Travel from affected area: No Lower respiratory symptoms: Yes Fever: No Other: No (JF ROY DO) PPE Use: Full PPE with N95 mask or PAPR: Yes (IRVING PALMER DO) Full PPE with N95 mask or PAPR: Yes (JF ROY DO) Critical Care Time Critical care time was 30 minutes which includes time at bedside, spent in discussion of patient's care with specialists and/or family members, with interpretation of laboratory and/or radiological studies and is exclusive of procedures. (IRVING PALMER DO) IRVING PALMER DO Jan 15, 2020 05:23 JF ROY DO Jan 15, 2020 07:10
[2020-01-15] MEDS ORDERED: ASPIRIN 325 MG TABLET PO ONE (05:30)
[2020-01-15] MEDS ORDERED: IV NORMAL SALINE 1,000ML 1,000 ML IV ONE (05:30)
[2020-01-15] MEDS ORDERED: DEXAMETHASONE SOD PHOS 4 MG/ML VIAL. IVP ONE (05:30)
--- NOTE | 2020-01-15 05:36 | EKG ---
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
[2020-01-15 05:43] LABS: BASO % 0 % (0-3); EOS # 0.2 x10^3/uL (0.0-0.7); EOS % 2 % (0-3); HEMATOCRIT 35.3 % (36.0-47.0); HEMOGLOBIN 11.5 g/dL (12.0-15.5); LYMPH # 2.7 x10^3/uL (1.0-4.8); LYMPH % 24 % (24-48); MEAN CORPUSCULAR HEMOGLOBIN 32 pg (25-35); MEAN CORPUSCULAR HGB CONC 33 g/dL (31-37); MEAN CORPUSCULAR VOLUME 97 fL (79-100); MONO % 9 % (0-9); NEUT # 7.5 x10^3uL (1.8-7.7); NEUT % 66 % (31-73); PLATELET COUNT 420 x10^3/uL (140-400); RED BLOOD COUNT 3.63 x10^6/uL (3.50-5.40); RED CELL DISTRIBUTION WIDTH 14.7 % (11.5-14.5); WHITE BLOOD COUNT 11.5 x10^3/uL (4.0-11.0)
[2020-01-15 05:55] LABS: CALCIUM 9.5 mg/dL (8.5-10.1); CREATININE 0.9 mg/dL (0.6-1.0); GFR 59.8; POTASSIUM 4.2 mmol/L (3.5-5.1)
[2020-01-15 06:11] LABS: ALBUMIN 3.7 g/dL (3.4-5.0); ALBUMIN/GLOBULIN RATIO 0.9 (1.0-1.7); MAGNESIUM 2.3 mg/dL (1.8-2.4); TOTAL BILIRUBIN 0.8 mg/dL (0.2-1.0); TOTAL PROTEIN 7.9 g/dL (6.4-8.2)
[2020-01-15] MEDS ORDERED: ONDANSETRON PF 4 MG/2 ML VIAL. IVP PRN (07:15)
--- NOTE | 2020-01-15 07:18 | RAD ---
EXAM: CHEST AP ONLY INDICATION: Reason: SOB / Spl. Instructions: / History: . TECHNIQUE: Single view COMPARISON: 01/08/2020 chest x-ray FINDINGS: The heart size is mildly enlarged, similar to prior. Great vessels again show aortic calcification and tortuosity. Bilateral perihilar interstitial opacities are present Lungs again show coarse diffuse interstitial thickening, worse in the interval and more conspicuous in the right lung with evidence of Flaco B-lines on the right. Probable trace bilateral pleural effusions. No pneumothorax. There are no significant osseous abnormalities. IMPRESSION: Worsening findings of interstitial pulmonary edema. Electronically signed by: Dudley Acosta MD (01/15/2020 7:15 AM) [id number]
[2020-01-15] MEDS ORDERED: ROCURONIUM 50 MG/5 ML VIAL. IV ONE (07:45)
[2020-01-15] MEDS ORDERED: ETOMIDATE 40 MG/20 ML VIAL. INJ ONE (07:45)
[2020-01-15] MEDS ORDERED: SUCCINYLCHOLINE 200 MG/10 ML VIAL. ONE (07:50)
[2020-01-15] MEDS ORDERED: VANCOMYCIN 2.5 GM in IV NORMAL SALINE 500ML 500 ML IV ONE (08:15)
[2020-01-15] MEDS ORDERED: PIPERACILLIN/TAZOBACTAM 3.375 GM in IV NORMAL SALINE 50ML 50 ML IV ONE (08:15)
[2020-01-15] MEDS ORDERED: IPRATRPIUM/ALBUTEROL 0.5/2.5MG 3 ML NEBU. NEB ONE (08:15)
[2020-01-15] MEDS ORDERED: PROPOFOL 100 ML IV PRN (08:15)
[2020-01-15] MEDS ORDERED: VANCOMYCIN 1.75 GM in IV NORMAL SALINE 500ML 500 ML IV ONE (08:30)
--- NOTE | 2020-01-15 08:33 | RAD ---
CHEST AP ONLY History: Reason: SOB / Spl. Instructions: / History: Comparison: January 15, 2020 Findings: Unchanged diffuse interstitial thickening. Small right pleural effusion, unchanged. No pneumothorax. Interval placement endotracheal tube with tip 2.7 cm above the jnaet. Enteric tube with tip below the diaphragm beyond the image. Impression: 1. Interval intubation and placement of enteric tube. 2. Unchanged diffuse interstitial thickening. 3. Small right pleural effusion, unchanged. Electronically signed by: Awais Garay DO (01/15/2020 8:31 AM) [id number]
--- NOTE | 2020-01-15 08:35 | RAD ---
KUB History: Reason: SOB / Spl. Instructions: / History: Technique: Supine view the abdomen. Comparison: CT January 04, 2020 Findings: Interval placement enteric tube with tip projecting over the mid gastric body. Image lung bases are degraded by artifact and better evaluated on chest x-ray. Postop changes left upper abdomen. Impression: 1. Interval placement enteric tube. Electronically signed by: Awais Garay DO (01/15/2020 8:32 AM) [id number]
== END 2020-01-15 08:45 | disposition short-term general hospital (02) ==
LOC: ER 04:52 → UNDOADMIN 07:00 → ICU 07:00
DX: R06.00 Dyspnea, unspecified (principal); R09.02 Hypoxemia; R11.10 Vomiting, unspecified; J44.9 Chronic obstructive pulmonary disease, unspecified; I10 Essential (primary) hypertension; I25.2 Old myocardial infarction; F17.210 Nicotine dependence, cigarettes, uncomplicated; Z20.828 Contact with and (suspected) exposure to other viral communicable diseases; Z88.0 Allergy status to penicillin; Z88.7 Allergy status to serum and vaccine; Z88.8 Allergy status to other drugs, medicaments and biological substances
CPT/HCPCS: 31500; 36415; 71045; 74018; 80053; 82553; 83605; 83690; 83735; 83880; 84484; 85025; 85379; 85610; 85730; 87040; 93005; 96361; 96374; 96375; 99291; J1100; J3010; J3370; J7030; J7040; U0003; 94002

== ENCOUNTER 2020-09-21 07:11 | Emergency (ER) | payer MEDICARE, OTHER ==
[~2020-09-21] VITALS: Ht 170.2 cm; Wt 68.5 kg
[~2020-09-21 07:11] MED LIST changes: -LISI-338 PO; +LISI-517 PO
[2020-09-21] MEDS ORDERED: HYDR12.59 PO (07:23)
[2020-09-21] MEDS ORDERED: cloNIDine HCL 0.1 MG TABLET PO ONE (07:30)
--- NOTE | 2020-09-21 07:32 | PHYS DOC ---
Past History Past Medical History: COPD, Dementia, Hypertension, ID, Stroke Additional Past Medical Histor: Limited secondary to dementia Past Surgical History: Hysterectomy Additional Past Surgical Histo: Limited secondary to dementia Smoking: Cigarettes, Less than 1pk/day Alcohol Use: None Drug Use: None Social History Narrative: Limited secondary to dementia General Adult EDM: Chief Complaint: HYPERTENSION HPI: HPI: 85-year-old female presents via EMS with report of elevated blood pressure this morning. Patient does have a history of dementia. Patient reports noting her left arm "turned red ". Reports it has now resolved. Family became concerned because her blood pressure was significantly elevated over her normal. EMS reports blood pressure was 220/106 on their arrival. Patient does report taking her medication this morning. Patient takes carvedilol 3 times daily and clonidine for systolic blood pressure greater 180. Patient did take as needed clonidine this morning that was given to her by her son. Patient denies any chest pain or headache. Denies fever or chills. Denies trauma. History of present illness limited secondary to dementia. Review of Systems: Review of Systems: Constitutional: Denies fever Respiratory: Denies cough or shortness of breath Cardiovascular: Denies chest pain or palpitations GI: Denies abdominal pain or vomiting Musculoskeletal: Denies extremity pain Integument: Reports left arm "turned red ". Neurologic: Denies headache, focal weakness or sensory changes Review of systems limited secondary to dementia. Current Medications: Current Meds: Current Medications Medications (Trade) Dose Ordered Sig/Sherrell Start Time Stop Time Status Last Admin Dose Admin Clonidine HCl (Catapres) 0.1 mg 1X ONCE 09/21/20 07:30 09/21/20 07:31 UNV Allergies: Allergies: Allergies Coded Allergies Type Severity Reaction Last Updated Verified Influenza Virus Vaccines Allergy Severe ANAPHYLAXIS 01/15/20 Yes Penicillins Allergy Intermediate Hives 06/09/13 Yes alendronate sodium Allergy Intermediate 02/11/19 Yes amlodipine besylate Allergy Intermediate Swelling 06/09/13 Yes carisoprodol Allergy Intermediate BREAK OUT 02/09/14 Yes iodine Allergy Intermediate 08/04/13 Yes nitrofurantoin Allergy Intermediate 08/04/13 Yes sertraline HCl Allergy Intermediate Nausea 02/10/14 Yes spironolactone Allergy Intermediate 02/11/19 Yes acetaminophen Allergy Mild Rash 02/12/19 Yes Physical Exam: PE: Constitutional: Well developed, well nourished, no acute distress, non-toxic appearance HENT: Normocephalic, atraumatic Eyes: PERRL, EOMI, conjunctiva normal, no discharge Neck: Normal range of motion, no tenderness, supple Lungs & Thorax: No respiratory distress, equal chest rise and fall Abdomen: Soft, no tenderness Skin: Warm, dry, no erythema, no rash Extremities: No tenderness, ROM intact, no edema, bilateral radial pulses +2 Neurologic: Alert and oriented X 2, confused to time, normal motor function, normal sensory function, no focal deficits noted Psychologic: Affect anxious, judgment abnormal EKG: EKG: @0735 NSR at 76bpm, occasional PVC, NO ST elevation, QRS 92ms, QT/QTc 400/455ms Radiology/Procedures: Radiology/Procedures: PROCEDURE: CT HEAD WO CONTRAST CT brain without contrast. HISTORY: Weakness, hypertension, on blood thinner CT scan of the brain was done without contrast. Comparison is made with a study from December 2019. Sinuses are clear. There is diffuse atrophy. There is decreased density in the periventricular white matter from chronic microvascular changes. Ventricles are mildly dilated from atrophy. There is no intracranial hemorrhage or subdural hematoma. An acute CVA is not identified. Pattern is unchanged compared to the prior study. IMPRESSION: 1. Atrophy and chronic white matter changes similar to the prior study. 2. No intracranial hemorrhage or acute CVA noted. PQRS Compliance Statement: One or more of the following individualized dose reduction techniques were utilized for this examination: 1. Automated exposure control 2. Adjustment of the mA and/or kV according to patient size 3. Use of iterative reconstruction technique Electronically signed by: Mark Wynn MD (09/21/2020 8:03 AM) [id number] PROCEDURE: CHEST PA & LATERAL EXAMINATION: Chest radiograph. VIEWS: 2 views COMPARISON: 01/15/2020 INDICATION:85 years, Female, weakness. FINDINGS: Normal cardiomediastinal silhouette. Tortuous thoracic aorta with atherosclerotic calcifications. Cephalization of the pulmonary vessels. Diffuse interstitial reticulations throughout both lungs. Increased lucency in the upper lungs, compatible with known mild pulmonary emphysema. No focal consolidation. No pleural effusion or pneumothorax. No acute osseous process. Unchanged calcified granuloma in the right lower lobe. IMPRESSION: [id number] interstitial pulmonary edema. Electronically signed by: Sarath Altamirano MD (09/21/2020 8:49 AM) [id number] Heart Score: C/O Chest Pain: N/A Course & Med Decision Making: Course & Med Decision Making Pertinent Labs and Imaging studies reviewed. (See chart for details) Patient with history of dementia presents via EMS with concern for elevated blood pressure. Patient also had reported that her left arm "turned red ". Extremity appears normal upon arrival. Patient neurologically at her baseline. No focal deficit appreciated. NIHSS 0. Patient's blood pressure was noted to be elevated. Clonidine 0.1 mg p.o. provided. Labs obtained and posted to chart. EKG stable. Decision to obtain CT head imaging given patient's history of dementia, elevated blood pressure, and use of blood thinners. CT head without acute process. IV hydralazine also given with interval improvement. BNP >1000. CXR therefore obtained with findings of mild-moderate pulmonary vascular congestion. Patient denies SOA or cough. Sats stable throughout ED visit. Patient with history of prior HCTZ 12.5mg qday. Discussed case and findings with patient's PCP- Dr. Major. Dr. Major is in agreement with restarting 12.5mg HCTZ daily and in agreement with close outpatient follow-up. Initial dose given in department. Patient stable for discharge with outpatient follow-up with PCP. Discussed findings and plan with patient, who acknowledges understanding and agreement. Carleen Disclaimer: Carleen Disclaimer: This electronic medical record was generated, in whole or in part, using a voice recognition dictation system. Departure Departure: Impression: Primary Impression: HTN (hypertension) Qualified Codes: I10 - Essential (primary) hypertension Disposition: HOME / SELF CARE / HOMELESS Condition: STABLE Referrals: MARYA MAJOR MD (PCP) Patient Instructions: Hypertension, Ackb-bc-Orgr Additional Instructions: Please follow closely with your family physician regarding your blood pressure and recent adjustment of your medications to include a water pill. This adjustment has already been approved by your doctor, but you will need to be rechecked to see if further adjustment is needed. Continue use of previously prescribed blood pressure medications. Scripts Hydrochlorothiazide (HYDROCHLOROTHIAZIDE CAPSULE ) 12.5 Mg Capsule 12.5 MG PO DAILY for DIURETIC, #30 CAP 0 Refills Prov: IRVING PALMER DO 09/21/20 NIHSS - ED NIH Stroke Scale: NIH Stroke Scale Response (Comments) Value Level of Consciousness: 0 Alert/Responsive 0 LOC Questions: 0 Answers both correctly 0 LOC Commands: 0 Performs both tasks 0 Best Gaze: 0 Normal 0 Visual: 0 No visual loss 0 Facial Palsy: 0 Normal, symmetrical 0 Motor - Left Arm 0 No drift 0 Motor - Right Arm 0 No drift 0 Motor - Left Leg 0 No drift 0 Motor: Right Leg 0 No drift 0 Limb Ataxia: 0 Absent 0 Sensory: 0 No loss 0 Best Language: 0 Normal 0 Dysathria: 0 Normal 0 Extinction and Inattention: 0 Normal 0 Total 0 PALMER,IRVING Nixon DO Sep 21, 2020 07:32
[2020-09-21 07:57] LABS: CALCIUM 9.1 mg/dL (8.5-10.1); CREATININE 0.7 mg/dL (0.6-1.0); GFR 79.7
--- NOTE | 2020-09-21 08:06 | RAD ---
CT brain without contrast. HISTORY: Weakness, hypertension, on blood thinner CT scan of the brain was done without contrast. Comparison is made with a study from December 2019. Sinuses are clear. There is diffuse atrophy. There is decreased density in the periventricular white matter from chronic microvascular changes. Ventricles are mildly dilated from atrophy. There is no in tracranial hemorrhage or subdural hematoma. An acute CVA is not identified. Pattern is unchanged comp ared to the prior study. IMPRESSION: 1. Atrophy and chronic white matter changes similar to the prior study. 2. No intracranial hemorrhage or acute CVA noted. PQRS Compliance Statement: One or more of the following individualized dose reduction techniques were utilized for this examinat ion: 1. Automated exposure control 2. Adjustment of the mA and/or kV according to patient size 3. Use of iterative reconstruction technique Electronically signed by: Mark Wynn MD (09/21/2020 8:03 AM) [id number]
[2020-09-21 08:13] LABS: ALBUMIN/GLOBULIN RATIO 1.1 (1.0-1.7); TOTAL BILIRUBIN 0.6 mg/dL (0.2-1.0); TOTAL PROTEIN 7.7 g/dL (6.4-8.2)
[2020-09-21 08:16] LABS: BASO % 1 % (0-3); EOS # 0.1 x10^3/uL (0.0-0.7); EOS % 1 % (0-3); HEMATOCRIT 40.2 % (36.0-47.0); HEMOGLOBIN 13.7 g/dL (12.0-15.5); LYMPH # 1.7 x10^3/uL (1.0-4.8); LYMPH % 28 % (24-48); MEAN CORPUSCULAR HEMOGLOBIN 32 pg (25-35); MEAN CORPUSCULAR HGB CONC 34 g/dL (31-37); MEAN CORPUSCULAR VOLUME 93 fL (79-100); MONO # 0.5 x10^3/uL (0.0-1.1); MONO % 8 % (0-9); NEUT % 63 % (31-73); PLATELET COUNT 248 x10^3/uL (140-400); RED BLOOD COUNT 4.31 x10^6/uL (3.50-5.40); RED CELL DISTRIBUTION WIDTH 14.1 % (11.5-14.5); WHITE BLOOD COUNT 6.3 x10^3/uL (4.0-11.0)
[2020-09-21 08:30] LABS: BILIRUBIN,URINE NEG (NEG); CLARITY,URINE CLEAR; COLOR,URINE YELLOW; GLUCOSE,URINE NEG (NEG); NITRITE,URINE NEG (NEG); UROBILINOGEN,URINE 0.2 mg/dL (0.2 mg/dL)
[2020-09-21 08:33] LABS: BACTERIA,URINE 0 /HPF (0-FEW); RBC,URINE OCC /HPF (0-2); SQUAMOUS EPITHELIAL CELL,UR OCC /LPF; WBC,URINE OCC /HPF (0-4)
--- NOTE | 2020-09-21 08:51 | RAD ---
EXAMINATION: Chest radiograph. VIEWS: 2 views COMPARISON: 01/15/2020 INDICATION:85 years, Female, weakness. FINDINGS: Normal cardiomediastinal silhouette. Tortuous thoracic aorta with atherosclerotic calcifications. Cep halization of the pulmonary vessels. Diffuse interstitial reticulations throughout both lungs. Increa sed lucency in the upper lungs, compatible with known mild pulmonary emphysema. No focal consolidatio n. No pleural effusion or pneumothorax. No acute osseous process. Unchanged calcified granuloma in th e right lower lobe. IMPRESSION: [id number] interstitial pulmonary edema. Electronically signed by: Sarath Altamirano MD (09/21/2020 8:49 AM) [id number]
[2020-09-21] MEDS ORDERED: hydrALAZINE 20 MG/ML VIAL. ONE (09:00)
[2020-09-21] MEDS ORDERED: hydrALAZINE 20 MG/ML VIAL. IV ONE (09:00)
[2020-09-21] MEDS ORDERED: hydroCHLOROthiazide 25 MG TABLET. PO ONE (09:00)
[2020-09-21] MEDS ORDERED: HYDR12.572 PO (09:08)
[2020-09-21] MEDS ORDERED: hydroCHLOROthiazide 25 MG TABLET. ONE (09:10)
[2020-09-21 09:18] VITALS: BP 149/79
--- NOTE | 2020-09-21 10:12 | EKG ---
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
== END 2020-09-21 09:52 | disposition home or self-care (01) ==
LOC: ER 07:11
DX: I10 Essential (primary) hypertension (principal); J44.9 Chronic obstructive pulmonary disease, unspecified; F03.90 Unspecified dementia, unspecified severity, without behavioral disturbance, psychotic disturbance, mood disturbance, and anxiety; I25.2 Old myocardial infarction; F17.210 Nicotine dependence, cigarettes, uncomplicated; Z86.73 Personal history of transient ischemic attack (TIA), and cerebral infarction without residual deficits; Z88.7 Allergy status to serum and vaccine; Z88.0 Allergy status to penicillin; Z88.8 Allergy status to other drugs, medicaments and biological substances
CPT/HCPCS: 36415; 70450; 71046; 80053; 81001; 82553; 83735; 83880; 84484; 85025; 93005; 96374; 99285; J0360

== ENCOUNTER 2021-03-23 06:26 | Observation (INO) | payer MEDICARE, OTHER ==
[~2021-03-23] VITALS: Ht 170.2 cm; Wt 68.5 kg
[~2021-03-23 06:26] MED LIST changes: -LISI-517 PO; +LISI5TAB15 PO
--- NOTE | 2021-03-23 06:32 | PHYS DOC ---
Past History Past Medical History: CHF, COPD, Dementia, Hypertension, MT, Stroke Additional Past Medical Histor: Limited secondary to dementia Past Surgical History: Hysterectomy Additional Past Surgical Histo: Limited secondary to dementia Smoking: Cigarettes, Less than 1pk/day Alcohol Use: None Drug Use: None Adult General Chief Complaint Chief Complaint: SHORTNESS OF BREATH HPI HPI Patient is a 85-year-old female presenting via EMS for shortness of breath. This is an acute on chronic issue. HPI limited to EMS report on arrival given patient's history of dementia. It is reported that patient started having shortness of breath without any known inciting event, trauma, ingestion, exposure, no new change in medication or other change from baseline health this morning at 3 AM. Symptoms were ongoing prompting son who lives with patient to contact EMS. On arrival, patient was found to be tachypneic and saturating in the 70s on room air, nasal cannula was applied with improvement in oxygen saturation and given history of CHF, BiPAP was placed. There was concern for patient's ability to be transported to [facility] given respiratory di stress and so patient was sent to our facility for evaluation. On arrival, patient has no complaints. She does not know why she is here. She states her breathing is much better and has no acute complaints. Per chart review, it appears patient has history of dementia, COPD with prior tobacco abuse, CAD, and HFpEF. It is unknown if she is on any blood thinners. She does admit being fully vaccinated against COVID-19 Review of Systems Review of Systems Fourteen body systems of review of systems have been reviewed. See HPI for pertinent positives and negative responses, other burgess all other systems are negative, non-pertinent or non-contributory Allergies Allergies Allergies Coded Allergies Type Severity Reaction Last Updated Verified Influenza Virus Vaccines Allergy Severe ANAPHYLAXIS 03/23/21 Yes Penicillins Allergy Intermediate Hives 03/23/21 Yes alendronate sodium Allergy Intermediate 03/23/21 Yes amlodipine besylate Allergy Intermediate Swelling 03/23/21 Yes carisoprodol Allergy Intermediate BREAK OUT 03/23/21 Yes iodine Allergy Intermediate 03/23/21 Yes nitrofurantoin Allergy Intermediate 03/23/21 Yes sertraline HCl Allergy Intermediate Nausea 03/23/21 Yes spironolactone Allergy Intermediate 03/23/21 Yes acetaminophen Allergy Mild Rash 03/23/21 Yes Physical Exam Physical Exam Constitutional: Well developed, well nourished, age-appropriate with slight increased work of breathing but otherwise non-toxic appearance. HENT: Normocephalic, atraumatic, bilateral external ears normal, oropharynx moist, no oral exudates, nose normal. Eyes: PERRLA, EOMI, conjunctiva normal, no discharge. Neck: Normal range of motion, no tenderness, supple, no stridor. Cardiovascular: Heart rate regular, sinus rhythm, no murmurs rubs or gallops Lungs & Thorax: Increased work of breathing with bibasilar rales present, no accessory muscle use or retractions Abdomen: Bowel sounds normal, soft, no tenderness, no masses, no pulsatile masses. Nonsurgical abdomen, no peritoneal signs Skin: Warm, dry, no erythema, no rash. Back: No tenderness, no CVA tenderness. Extremities: No tenderness, no cyanosis, no clubbing, ROM intact, no edema. Neurologic: Alert and oriented X 2 person only with unknown baseline, appears pleasantly confused, grossly normal motor & sensory function, no focal deficits noted. Psychologic: Affect normal, judgement normal, mood normal. Current Patient Data Vital Signs Vital Signs Date Time Temp Pulse Resp B/P (MAP) Pulse Ox O2 Delivery O2 Flow Rate FiO2 03/23/21 06:30 97.0 92 20 196/121 (146) 94 03/23/21 08:50 Room Air Vital Signs Date Time Temp Pulse Resp B/P (MAP) Pulse Ox O2 Delivery O2 Flow Rate FiO2 03/23/21 10:23 78 152/92 03/23/21 10:20 23 96 Room Air 03/23/21 06:30 97.0 Lab Results Current Medications Medications (Trade) Dose Ordered Sig/Sherrell Route PRN Reason Start Time Stop Time Status Last Admin Dose Admin Furosemide (Lasix) 40 mg 1X ONCE IVP 03/23/21 07:15 03/23/21 07:16 DC 03/23/21 10:22 Nitroglycerin (Nitrostat) 0.4 mg PRN Q5MIN PRN SL CHEST PAIN 03/23/21 07:45 03/24/21 11:06 DC 03/23/21 10:23 EKG EKG [] Radiology/Procedures Radiology/Procedures XR CHEST 1V INDICATION: short of breath with a cough COMPARISON STUDY: 09/21/2020. FINDINGS: Lungs: Normal lung volume. Bilateral perihilar and basilar heterogeneous opacities. Indistinct central vasculature. Pleura: No pleural effusion or pneumothorax. Heart and Mediastinum: Cardiomegaly. Tortuous atherosclerotic aorta. IMPRESSION: Bilateral perihilar and basilar opacities, probably interstitial edema. Electronically signed by: Jesus Lopes MD (03/23/2021 7:00 AM) [facility] Heart Score C/O Chest Pain: No Risk Factors: Risk Factors: DM, Current or recent (<one month) smoker, HTN, HLP, family history of CAD, obesity. Risk Scores: Risk Factors: DM, Current or recent (<one month) smoker, HTN, HLP, family history of CAD, obesity. Course & Med Decision Making Course & Med Decision Making Patient with known HFpEF with acute exacerbation due to fluid overloaded state. States she has been drinking too much water given recent hot weather Symptoms improved after positive pressure ventilation, Lasix and Nitro. Nonetheless, she is still not at baseline and requires further inpatient management and cardiology consultation given high risk for recurrence Patient's PCP who serves as hospitalist contacted and patient was accepted under the care of Dr. Major. Patient and son notified of this discussed and recommendations for admission and they were amenable, all questions and concerns addressed prior to admission Dragon Disclaimer Dragon Disclaimer This electronic medical record was generated, in whole or in part, using a voice recognition dictation system. Departure Departure: Impression: Primary Impression: Acute exacerbation of CHF (congestive heart failure) Disposition: ADMITTED INPATIENT Admitting Physician: Marya Major Condition: STABLE Referrals: MARYA MAJOR MD (PCP) Scripts Furosemide (LASIX) 20 Mg Tablet 1 TAB PO DAILY for chf for 30 Days, #30 TAB 0 Refills Prov: MARYA MAJOR MD 03/24/21 Mirabegron (MYRBETRIQ) 25 Mg Tab.er.24h 25 MG PO DAILY for oab for 30 Days, #30 TAB.SR Prov: MARYA MAJOR MD 03/24/21 IMER HASTINGS DO Mar 23, 2021 06:32
--- NOTE | 2021-03-23 07:03 | RAD ---
XR CHEST 1V INDICATION: short of breath with a cough COMPARISON STUDY: 09/21/2020. FINDINGS: Lungs: Normal lung volume. Bilateral perihilar and basilar heterogeneous opacities. Indistinct centra l vasculature. Pleura: No pleural effusion or pneumothorax. Heart and Mediastinum: Cardiomegaly. Tortuous atherosclerotic aorta. IMPRESSION: Bilateral perihilar and basilar opacities, probably interstitial edema. Electronically signed by: Jesus Lopes MD (03/23/2021 7:00 AM) [facility]
[2021-03-23] MEDS ORDERED: FUROSEMIDE 40 MG/4 ML VIAL IVP ONE (07:15)
[2021-03-23 07:43] LABS: BASO % 1 % (0-3); EOS # 0.1 x10^3/uL (0.0-0.7); EOS % 1 % (0-3); HEMATOCRIT 38.8 % (36.0-47.0); HEMOGLOBIN 13.2 g/dL (12.0-15.5); LYMPH # 1.7 x10^3/uL (1.0-4.8); LYMPH % 20 % (24-48); MEAN CORPUSCULAR HEMOGLOBIN 32 pg (25-35); MEAN CORPUSCULAR HGB CONC 34 g/dL (31-37); MEAN CORPUSCULAR VOLUME 94 fL (79-100); MONO # 0.5 x10^3/uL (0.0-1.1); MONO % 6 % (0-9); NEUT # 5.9 x10^3uL (1.8-7.7); NEUT % 72 % (31-73); PLATELET COUNT 272 x10^3/uL (140-400); RED BLOOD COUNT 4.12 x10^6/uL (3.50-5.40); WHITE BLOOD COUNT 8.2 x10^3/uL (4.0-11.0)
[2021-03-23] MEDS ORDERED: NITROGLYCERIN SUBLINGUAL 0.4 MG BOTTLE OF 25. SL PRN ×2 (07:45→17:00)
[2021-03-23 08:03] LABS: CALCIUM 8.6 mg/dL (8.5-10.1); CREATININE 0.8 mg/dL (0.6-1.0); GFR 68.3; POTASSIUM 3.9 mmol/L (3.5-5.1)
--- NOTE | 2021-03-23 08:31 | EKG ---
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
[2021-03-23 08:54] LABS: BACTERIA,URINE MOD /HPF (0-FEW); BILIRUBIN,URINE NEG (NEG); CLARITY,URINE CLEAR; COLOR,URINE YELLOW; GLUCOSE,URINE 250 mg/dL (NEG); HYALINE CASTS, URINE OCC /HPF; NITRITE,URINE NEG (NEG); SQUAMOUS EPITHELIAL CELL,UR OCC /LPF; UROBILINOGEN,URINE 0.2 mg/dL (0.2 mg/dL)
[2021-03-23 08:56] LABS: INFLUENZA A PATIENT NEGATIVE (NEGATIVE); INFLUENZA B PATIENT NEGATIVE (NEGATIVE)
[2021-03-23] MEDS ORDERED: cloNIDine HCL 0.1 MG TABLET PO PRN (18:15)
[2021-03-23] MEDS ORDERED: ONDANSETRON ODT 4 MG TAB.RAPDIS PO PRN (18:15)
[2021-03-23] MEDS ORDERED: traMADol 50 MG TABLET PO PRN (18:15)
[2021-03-23 18:26] VITALS: BP 115/78
--- NOTE | 2021-03-23 18:53 | NUR ---
PT ARRIVED TO ROOM 125. PT UP AD TAMARA. PT CONFUSED TO WHY SHE IS HERE. PT IS PLEASANTLY CONFUSED. PT STATES HER SON LIVES WITH HER.
[2021-03-23] MEDS: APIXABAN 5 MG TABLET. PO SCH (19:55)
[2021-03-23] MEDS: CARVEDILOL 12.5 MG TABLET PO SCH (19:56)
[2021-03-23] MEDS: MEMANTINE 10 MG TABLET. PO SCH (19:56)
[2021-03-23] MEDS ORDERED: EZETIMIBE 10 MG TABLET PO SCH (21:00)
[2021-03-23] MEDS ORDERED: DEMECLOCYCLINE HCL PO SCH (21:00)
[2021-03-24 00:16] VITALS: BP 101/67
--- NOTE | 2021-03-24 04:38 | HP ---
DATE OF SERVICE: 03/23/2021 ADMIT DATE: 03/23/2021 HISTORY OF PRESENT ILLNESS: This 85-year-old female came in through the Emergency Room with increased shortness of breath. The patient was found to be in congestive heart failure. The patient has a long history of being in CHF. The patient has severe dementia, Alzheimer's type and became increasingly confused, apparently increasing the amount of fluid that she has been drinking. The patient's oxygen saturation has been down in the 70s and the nasal cannula applied, brought that back up and also BiPAP was placed initially to get her oxygen above 90%. The patient normally goes to [facility] but apparently they are full up, so she came here to [facility] to get feeling better. The patient otherwise outside of her breathing, she has no other complaints. She denies chest pain and so forth. The patient has multiple medical problems, primarily admitted for acute on top of chronic diastolic heart failure. PAST MEDICAL HISTORY: Cataracts; stroke; TIAs; dementia, Alzheimer's type; episodes of AFib; heart attack x 2; chronic congestive heart failure; coronary artery disease; anticoagulant therapy; hypercholesterolemia; DVTs; colitis; colonic polyps; hemorrhoids; quarter of her stomach removed for ulcers; hysterectomy; urinary tract infections; incontinence; arthritis; hypothyroidism; and severe depression. FAMILY HISTORY: Positive for liver disease, cancer, diabetes and Alzheimer's. ALLERGIES: ADVERSE REACTIONS INCLUDE INFLUENZA PENICILLIN, ACETAMINOPHEN, ALENDRONATE, AMLODIPINE, RISPERDAL, IODINE, ____, ZOLOFT and SPIRONOLACTONE. SOCIAL HISTORY: The patient does have a long previous history of smoking, but has not smoked for numerous years, maybe [id number]. Denies alcohol or drug use. Lives at home with her son. The patient is a FULL CODE. REVIEW OF SYSTEMS: The patient really not able to give much of a history, but just complains primarily of shortness of breath, especially dyspnea, just difficulty in getting her air as noted. The patient is fully vaccinated. PHYSICAL EXAMINATION: GENERAL: This is a pleasant white female, looking somewhat older than stated age. VITAL SIGNS: Blood pressure 196/120, down to 150/92; respiratory rate 20-23; pulse 92; temperature 96. Presently on room air, although was quite low when she first came in at 70 ____. The patient otherwise continued to be monitored there. HEENT: Otherwise head was atraumatic, normocephalic. Eyes, PERRLA without jaundice. The mouth and throat were normal. NECK: Supple, no JVD or thyromegaly. LUNGS: Diminished throughout, poor movement of air, but crackles or rales in the bases. ABDOMEN: Soft, nontender. EXTREMITIES: Without clubbing, cyanosis, +2 pitting edema. Decreased pulses. NEUROLOGIC: Alert, but slightly confused, severe short-term memory deficit. LABORATORY DATA: The EKG shows bilateral opacities consistent with congestive heart failure. EKG taken in the Emergency Room shows a pattern of sinus rhythm, tachycardia, first-degree AV block present with occasional PVC. Sodium 132 and potassium 3.9. BNP of 1700. Troponins on the increase from 150 up to 470. Coags, elevated D-dimer 0.74. Urine was basically clear. Chest x-ray as indicated consistent with heart failure. DIAGNOSES: Acute on top of chronic diastolic heart failure, sinus tachycardia, hypertensive urgency, hypoxia, acute respiratory distress, history of coronary artery disease, history of cardiac arrhythmias, history of DVTs. The patient otherwise continued to be monitored, diuresed gently. Continue to monitor. Consult with Cardiology and make further evaluation on this patient who has been fully vaccinated for COVID-19. ALYSSA/EKT/ROSA DR: ALYSSA/maryann TID: [id number]
[2021-03-24] MEDS ORDERED: LEVOTHYROXINE 75 MCG TABLET PO SCH (06:00)
[2021-03-24 06:12] VITALS: BP 150/93
[2021-03-24] MEDS ORDERED: PANTOPRAZOLE 40 MG TABLET. PO SCH (07:30)
[2021-03-24 07:35] LABS: BASO % 1 % (0-3); EOS # 0.1 x10^3/uL (0.0-0.7); EOS % 2 % (0-3); HEMATOCRIT 36.5 % (36.0-47.0); HEMOGLOBIN 12.4 g/dL (12.0-15.5); LYMPH # 2.6 x10^3/uL (1.0-4.8); LYMPH % 38 % (24-48); MEAN CORPUSCULAR HEMOGLOBIN 32 pg (25-35); MEAN CORPUSCULAR HGB CONC 34 g/dL (31-37); MEAN CORPUSCULAR VOLUME 95 fL (79-100); MONO # 0.7 x10^3/uL (0.0-1.1); MONO % 11 % (0-9); NEUT # 3.4 x10^3uL (1.8-7.7); NEUT % 49 % (31-73); PLATELET COUNT 262 x10^3/uL (140-400); RED BLOOD COUNT 3.85 x10^6/uL (3.50-5.40); RED CELL DISTRIBUTION WIDTH 13.9 % (11.5-14.5); WHITE BLOOD COUNT 6.9 x10^3/uL (4.0-11.0)
[2021-03-24] MEDS: CARVEDILOL 12.5 MG TABLET PO SCH (08:05)
[2021-03-24] MEDS: MEMANTINE 10 MG TABLET. PO SCH (08:05)
[2021-03-24] MEDS: APIXABAN 5 MG TABLET. PO SCH (08:06)
--- NOTE | 2021-03-24 08:25 | PDOC2 ---
CARDIAC CONSULT DATE OF CONSULT DOS: DATE: 03/24/21 TIME: 08:22 REASON FOR CONSULT Reason for Consult CHF, elevated trop REFERRING PHYSICIAN Referring Physician Dr. Julio SOURCE Source: Chart review, Patient HPI History of Present Illness This is an 85 yo female who presented secondary to shortness of breath. Patient is presently confused and unable to tell me what brought her into the ED. When asked about shortness of breath, thinks she may have has some. Jeremie any present shortness of breath, dizziness, diaphoresis, chest pain, or nausea/vomiting. Is feeling well this morning. Per chart review, the patient developed shortness of breath the morning prior to arrival. EMS was called. Was noted to be hypoxic on RA and brougth into the ED for further evaluation and treatment. CXR noted with mild CHF. PAST MEDICAL HISTORY Past Medical History Cardiovascular: AFIB (paroxysmal ), CAD, CHF, HTN, hyperipidemia Pulmonary: COPD CENTRAL NERVOUS SYSTEM: CVA, Dementia GI: GERD Heme/Onc: Other (DVT) Psych: Anxiety, Depression Endocrine: Hypothyroidism PAST SURGICAL HISTORY Past Surgical History Cataract Removal, Tonsillectomy, Hysterectomy, Other (stomach surgery ) FAMILY HISTORY Family History Cancer (lung), Diabetes, Hypothyroidism SOCIAL HISTORY Social History Smoke: Quit (many years ago) ALCOHOL: none Drugs: None Lives: Alone CURRENT MEDICATIONS Current Medications Current Medications Furosemide (Lasix) 40 mg 1X ONCE IVP Last administered on 03/23/21at 10:22; Start 03/23/21 at 07:15; Stop 03/23/21 at 07:16; Status DC Nitroglycerin (Nitrostat) 0.4 mg PRN Q5MIN PRN SL CHEST PAIN Last administered on 03/23/21at 10:23; Start 03/23/21 at 07:45 Nitroglycerin (Nitrostat) 0.4 mg PRN Q5MIN PRN SL CHEST PAIN; Start 03/23/21 at 17:00; Stop 03/24/21 at 07:45; Status DC Apixaban (Eliquis) 5 mg BID PO Last administered on 03/24/21at 08:06; Start 03/23/21 at 21:00 Clonidine HCl (Catapres) 0.1 mg PRN Q6HRS PRN PO HIGH BLOOD PRESSURE; Start 03/23/21 at 18:15 EZETIMIBE (Zetia) 10 mg HS PO Last administered on 03/23/21at 19:56; Start 03/23/21 at 21:00 Hydrochlorothiazide (Microzide) 12.5 mg DAILY PO Last administered on 03/24/21at 08:06; Start 03/24/21 at 09:00 Levothyroxine Sodium (Synthroid) 75 mcg DAILY06 PO Last administered on 03/24/21at 06:04; Start 03/24/21 at 06:00 Memantine (Namenda) 10 mg BID PO Last administered on 03/24/21at 08:05; Start 03/23/21 at 21:00 Ondansetron HCl (Zofran Odt) 4 mg PRN Q8HRS PRN PO 1st choice NAUSEA/VOMITING; Start 03/23/21 at 18:15 Pantoprazole Sodium (Protonix) 40 mg DAILYAC PO Last administered on 03/24/21at 08:06; Start 03/24/21 at 07:30 Tramadol HCl (Ultram) 50 mg PRN Q6HRS PRN PO PAIN Last administered on 03/23/21at 19:55; Start 03/23/21 at 18:15 Carvedilol (Coreg) 25 mg TID PO Last administered on 03/24/21at 08:05; Start 03/23/21 at 21:00 Multivitamins/ Calcium (Thera-M Plus) 1 tab DAILY PO Last administered on 03/24/21at 08:06; Start 03/24/21 at 09:00 Non-Formulary Medication ([Demeclocycline Hcl] ) 150 mg Q12HR PO ; Start 03/23/21 at 21:00; Stop 03/23/21 at 23:01; Status DC Active Scripts Active Hydrochlorothiazide Capsule (Hydrochlorothiazide) 12.5 Mg Capsule 12.5 Mg PO DAILY Pantoprazole Sodium 40 Mg Tablet.dr 40 Mg PO DAILYAC Ondansetron Odt (Ondansetron) 4 Mg Tab.rapdis 4 Mg PO PRN Q8HRS PRN [Demeclocycline Hcl] 150 MG Tablet 150 Mg PO Q12HR 30 Days Reported Tramadol Hcl (Tramadol HCl) 50 Mg Tablet 50 Mg PO PRN Q6HRS PRN LAST DOSE GIVEN: DATE: TIME: NEXT DOSE DUE: DATE: TIME: Memantine HCl 10 Mg Tablet 10 Mg PO BID LAST DOSE GIVEN: DATE:01/12/20 TIME:morning NEXT DOSE DUE: DATE:01/12/20 TIME:evening Synthroid (Levothyroxine Sodium) 75 Mcg Tablet 75 Mcg PO DAILY LAST DOSE GIVEN: DATE: TIME: NEXT DOSE DUE: DATE: TIME: Clonidine Hcl 0.1 Mg Tablet 0.1 Mg PO PRN Q6HRS PRN TAKE WHEN SBP >180 not given this admission NEXT DOSE DUE: DATE:when needed TIME: NEXT DOSE DUE: DATE: TIME: Carvedilol 25 Mg Tablet 25 Mg PO TID LAST DOSE GIVEN: DATE:01/12/20 TIME:morning NEXT DOSE DUE: DATE:01/12/20 TIME:evening NITROGLYCERIN SubLingual (Nitroglycerin) 0.4 Mg Tab.subl 0.4 Mg SL PRN Q5MIN PRN not given this admission NEXT DOSE DUE: DATE: TIME: DATE: TIME: Eliquis (Apixaban) 5 Mg Tablet 5 Mg PO BID LAST DOSE GIVEN: DATE:01/12/20 TIME:morning NEXT DOSE DUE: DATE:01/12/20 TIME:evening Zetia (Ezetimibe) 10 Mg Tablet 10 Mg PO HS LAST DOSE GIVEN: DATE:01/11/20 TIME:bedtime NEXT DOSE DUE: DATE:01/12/20 TIME:bedtime Multi-Vitamin Daily (Multivitamin) 1 Each Tablet 1 Tab PO DAILY LAST DOSE GIVEN: DATE:01/12/20 TIME:morning NEXT DOSE DUE: DATE:01/13/20 TIME:morning ALLERGIES Allergies: Coded Allergies: Influenza Virus Vaccines (Verified Allergy, Severe, ANAPHYLAXIS, 03/23/21) Penicillins (Verified Allergy, Intermediate, Hives, 03/23/21) TAKEN ROCEPHIN IN THE PAST PER RN INTERVIEW WITH PATIENT. alendronate sodium (Verified Allergy, Intermediate, 03/23/21) amlodipine besylate (Verified Allergy, Intermediate, Swelling, 03/23/21) carisoprodol (Verified Allergy, Intermediate, BREAK OUT, 03/23/21) break out. iodine (Verified Allergy, Intermediate, 03/23/21) nitrofurantoin (Verified Allergy, Intermediate, 03/23/21) sertraline HCl (Verified Allergy, Intermediate, Nausea, 03/23/21) spironolactone (Verified Allergy, Intermediate, 03/23/21) acetaminophen (Verified Allergy, Mild, Rash, 03/23/21) rash ROS Review of Systems 14 point ROS conducted with pertinent positives noted above in HPI PHYSICAL EXAM Physical Exam General: Alert, Oriented X3, Cooperative, No acute distress HEENT: Atraumatic, Mucous membr. moist/pink Lungs: Other (diminished) Heart: Regular rate, Normal S1, Normal S2, Other (2/6 systolic murmur) Abdomen: Soft, No tenderness Extremities: No edema Skin: No breakdown Neuro: Normal speech, Sensation intact Psych/Mental Status: Mental status NL, Mood NL MUSCULOSKELETAL: Osteoarthritic changes both hands VITALS Vital Signs Vital Signs Date Time Temp Pulse Resp B/P (MAP) Pulse Ox O2 Delivery O2 Flow Rate FiO2 03/24/21 08:13 Room Air 03/24/21 08:05 76 150/93 03/24/21 06:12 97.4 18 95 LABS LABS Laboratory Tests Test 03/23/21 07:00 03/23/21 07:05 03/23/21 07:55 03/23/21 08:09 Bedside Venous pH 7.35 (7.32-7.42) Bedside Venous pCO2 48 mmHg (41-51) Bedside Venous pO2 61 mmHg (20-40) Venous Blood HCO3 27 mmol/L (24-28) POC Venous O2 Saturation ([place]ennox) 90 % Bedside FiO2 28 White Blood Count 8.2 x10^3/uL (4.0-11.0) Red Blood Count 4.12 x10^6/uL (3.50-5.40) Hemoglobin 13.2 g/dL (12.0-15.5) Hematocrit 38.8 % (36.0-47.0) Mean Corpuscular Volume 94 fL (79-100) Mean Corpuscular Hemoglobin 32 pg (25-35) Mean Corpuscular Hemoglobin Concent 34 g/dL (31-37) Red Cell Distribution Width 14.0 % (11.5-14.5) Platelet Count 272 x10^3/uL (140-400) Neutrophils (%) (Auto) 72 % (31-73) Lymphocytes (%) (Auto) 20 % (24-48) Monocytes (%) (Auto) 6 % (0-9) Eosinophils (%) (Auto) 1 % (0-3) Basophils (%) (Auto) 1 % (0-3) Neutrophils # (Auto) 5.9 x10^3uL (1.8-7.7) Lymphocytes # (Auto) 1.7 x10^3/uL (1.0-4.8) Monocytes # (Auto) 0.5 x10^3/uL (0.0-1.1) Eosinophils # (Auto) 0.1 x10^3/uL (0.0-0.7) Basophils # (Auto) 0.0 x10^3/uL (0.0-0.2) D-Dimer (Rosalina) 0.74 mg/L (0.00-0.50) Sodium Level 132 mmol/L (136-145) Potassium Level 3.9 mmol/L (3.5-5.1) Chloride Level 96 mmol/L (98-107) Carbon Dioxide Level 24 mmol/L (21-32) Anion Gap 12 (6-14) Blood Urea Nitrogen 15 mg/dL (7-20) Creatinine 0.8 mg/dL (0.6-1.0) Estimated GFR (Cockcroft-Gault) 68.3 Glucose Level 159 mg/dL (70-99) Calcium Level 8.6 mg/dL (8.5-10.1) Troponin I High Sensitivity 154 ng/L (4-50) MV-Dgn-F-Type Natriuretic Peptide 1703 pg/mL (0-449) Urine Collection Type Unknown Urine Color Yellow Urine Clarity Clear Urine pH 7.0 Urine Specific [place] 1.020 Urine Protein 100 mg/dl (NEG-TRACE) Urine Glucose (UA) 250 mg/dL (NEG) Urine Ketones (Stick) Neg mg/dL (NEG) Urine Blood Neg (NEG) Urine Nitrite Neg (NEG) Urine Bilirubin Neg (NEG) Urine Urobilinogen Dipstick 0.2 mg/dL (0.2 mg/dL) Urine Leukocyte Esterase Neg (NEG) Urine RBC 3-5 /HPF (0-2) Urine WBC 1-4 /HPF (0-4) Urine Squamous Epithelial Cells Occ /LPF Urine Bacteria Mod /HPF (0-FEW) Urine Hyaline Casts Occ /HPF Urine Mucus Slight /LPF Coronavirus (COVID-19)(PCR) Not detected (NOT DETECTD) Influenza Type A (Rapid) Negative (NEGATIVE) Influenza Type B (Rapid) Negative (NEGATIVE) SARS-CoV-2 Antigen (Rapid) Negative (NEGATIVE) Test 03/23/21 13:30 03/23/21 21:40 03/24/21 06:23 Troponin I High Sensitivity 477 ng/L (4-50) 447 ng/L (4-50) White Blood Count 6.9 x10^3/uL (4.0-11.0) Red Blood Count 3.85 x10^6/uL (3.50-5.40) Hemoglobin 12.4 g/dL (12.0-15.5) Hematocrit 36.5 % (36.0-47.0) Mean Corpuscular Volume 95 fL (79-100) Mean Corpuscular Hemoglobin 32 pg (25-35) Mean Corpuscular Hemoglobin Concent 34 g/dL (31-37) Red Cell Distribution Width 13.9 % (11.5-14.5) Platelet Count 262 x10^3/uL (140-400) Neutrophils (%) (Auto) 49 % (31-73) Lymphocytes (%) (Auto) 38 % (24-48) Monocytes (%) (Auto) 11 % (0-9) Eosinophils (%) (Auto) 2 % (0-3) Basophils (%) (Auto) 1 % (0-3) Neutrophils # (Auto) 3.4 x10^3uL (1.8-7.7) Lymphocytes # (Auto) 2.6 x10^3/uL (1.0-4.8) Monocytes # (Auto) 0.7 x10^3/uL (0.0-1.1) Eosinophils # (Auto) 0.1 x10^3/uL (0.0-0.7) Basophils # (Auto) 0.0 x10^3/uL (0.0-0.2) ECHOCARDIOGRAM Echocardiogram <Conclusion> The left ventricle is normal size. Left ventricle systolic function is normal. The Ejection Fraction is 55-60%. Calculated aortic valve area is 1.5 cm2 with maximum pressure gradient of 22 mmHg and mean pressure gradient of 13 mmHg. Doppler and color-flow analysis revealed mild aortic stenosis. Doppler and Color Flow revealed no significant aortic regurgitation. Doppler and Color Flow revealed moderate mitral regurgitation. Doppler and Color Flow revealed mild tricuspid regurgitation. The PA pressure was estimated at 27 mmHg. There is no evidence of significant pericardial effusion. DATE: 04/20/15 1610 <Conclusion> The left ventricular systolic function is normal. The Ejection Fraction is 55-60%. There is normal LV segmental wall motion. Transmitral Doppler flow pattern is Grade III-reversible restrictive diastolic dysfunction. There is mild valvular aortic stenosis. Mild to moderate mitral regurgitation. Mild tricuspid regurgitation. The PA pressure was estimated at 37 mmHg. There is no evidence of significant pericardial effusion. DATE: 02/12/19 1442 <Conclusion> The left ventricle is normal size. The left ventricular systolic function is normal and the ejection fraction is within normal range. Left ventricular ejection fraction of 55 to 60% There is mild concentric left ventricular hypertrophy. Doppler and Color Flow revealed trace aortic regurgitation. Calcified aortic valve with moderately severe or greater aortic stenosis. Doppler and Color-flow revealed mild mitral regurgitation. Doppler and Color Flow revealed mild to moderate tricuspid regurgitation. DATE: 01/20/201658 HEART CATH Heart Cath 11/16/2015 Mild to moderate disease. [facility] ASSESSMENT/PLAN Assessment/Plan 1. Acute respiratory failure secondary to CHF 2. Acute on chronic diastolic CHF; improved s/p IV diuresis. 3. Mild troponin elevation; high sensitivity trop peak 477. Most probably type II, demand ischemia 4. Accelerated hypertension; now controlled 5. PAFIB; maintaining SR. on Eliquis for stroke prophylaxis 6. CAD; mild to moderate disease per cath 11/2015. 7. Hyperlipidemia 8. Moderately severe per echo 2019 9. H/o DVT/PE 10. H/o CVA 11. Hypothyroidism; on replacement Recommendations Mild diuresis Awaiting repeat labs Continue home antiHTN therapy Secondary prevention measures Outpatient ischemic evaluation Supportive care RHIANNON KABA APRN Mar 24, 2021 08:25
[2021-03-24] MEDS ORDERED: MULTIVITAMIN with MINERAL TABLET. PO SCH (09:00)
[2021-03-24] MEDS ORDERED: hydroCHLOROthiazide 12.5 MG CAPSULE PO SCH (09:00)
[2021-03-24] MEDS ORDERED: MIRABEGRON 25 MG TAB.ER.24H PO SCH (09:30)
[2021-03-24] MEDS ORDERED: FUROSEMIDE 20 MG/2 ML VIAL IVP ONE (09:30)
[2021-03-24] MEDS ORDERED: FURO-69 PO (09:52)
[2021-03-24] MEDS ORDERED: MIRA25TA PO (09:52)
[2021-03-24 10:07] LABS: CALCIUM 8.8 mg/dL (8.5-10.1); CREATININE 0.8 mg/dL (0.6-1.0); GFR 68.3; POTASSIUM 3.3 mmol/L (3.5-5.1)
[2021-03-24 10:39] VITALS: BP 122/76
--- NOTE | 2021-03-24 11:00 | NUR ---
Discharge note Pt discharged 1101 via ambulation accompanied by staff . Pt and family member given written and verbal instructions with verbal statement of understanding received.
== END 2021-03-24 11:06 | disposition home or self-care (01) ==
LOC: ER 06:26 → INTOOBSV 16:51 → 1 SOUTH 16:51
PROVIDERS: ADMIT Family Medicine; ATTEND Family Medicine
DX: J96.01 Acute respiratory failure with hypoxia (principal); Z20.822 Contact with and (suspected) exposure to COVID-19; I16.0 Hypertensive urgency; I11.0 Hypertensive heart disease with heart failure; I50.33 Acute on chronic diastolic (congestive) heart failure; I25.10 Atherosclerotic heart disease of native coronary artery without angina pectoris; J44.9 Chronic obstructive pulmonary disease, unspecified; E03.9 Hypothyroidism, unspecified; E78.00 Pure hypercholesterolemia, unspecified; E78.5 Hyperlipidemia, unspecified; G30.9 Alzheimer's disease, unspecified; F02.80 Dementia in other diseases classified elsewhere, unspecified severity, without behavioral disturbance, psychotic disturbance, mood disturbance, and anxiety; I24.8 Other forms of acute ischemic heart disease; I25.2 Old myocardial infarction; F32.A Depression, unspecified; I48.0 Paroxysmal atrial fibrillation; Z86.711 Personal history of pulmonary embolism; Z86.718 Personal history of other venous thrombosis and embolism; Z86.73 Personal history of transient ischemic attack (TIA), and cerebral infarction without residual deficits; Z87.19 Personal history of other diseases of the digestive system; Z87.891 Personal history of nicotine dependence; Z90.710 Acquired absence of both cervix and uterus; Z98.41 Cataract extraction status, right eye; Z98.42 Cataract extraction status, left eye; Z87.440 Personal history of urinary (tract) infections; Z90.49 Acquired absence of other specified parts of digestive tract; Z79.899 Other long term (current) drug therapy; Z98.890 Other specified postprocedural states
CPT/HCPCS: 36415; 71045; 80048; 81001; 82803; 83880; 84484; 85025; 85379; 87086; 87426; 87804; 93005; 96374; 99285; G0378; J1940; U0003; G0379

== ENCOUNTER 2021-08-02 12:36 | Inpatient (IN) | payer MEDICARE, OTHER ==
[~2021-08-02] VITALS: Ht 170.2 cm; Wt 69.0 kg
[~2021-08-02 12:36] MED LIST changes: +FURO-69 PO; +MIRA25TA PO
[2021-08-02] MEDS ORDERED: ALPRAZolam 0.25 MG TABLET PO ONE (13:15)
--- NOTE | 2021-08-02 13:22 | PHYS DOC ---
Past History Past Medical History: CHF, COPD, Dementia, Hypertension, VT, Stroke Additional Past Medical Histor: Limited secondary to dementia Past Surgical History: Hysterectomy Additional Past Surgical Histo: Limited secondary to dementia Smoking: Cigarettes, Less than 1pk/day Alcohol Use: None Drug Use: None General Adult EDM: Chief Complaint: SHORTNESS OF BREATH HPI: HPI: Patient is a 86-year-old female coming in for lightheadedness. Patient states she [place] felt lightheaded. Patient began to feel short of breath on the way to the emergency department. Patient is concerned about being dehydrated. Review of Systems: Review of Systems: All other systems within normal limits except for as noted in the HPI Current Medications: Current Meds: Current Medications Medications (Trade) Dose Ordered Sig/Sherrell Start Time Stop Time Status Last Admin Dose Admin Alprazolam (Xanax) 0.5 mg 1X ONCE 08/02/21 13:15 08/02/21 13:16 DC Allergies: Allergies: Allergies Coded Allergies Type Severity Reaction Last Updated Verified Influenza Virus Vaccines Allergy Severe ANAPHYLAXIS 03/23/21 Yes Penicillins Allergy Intermediate Hives 03/23/21 Yes alendronate sodium Allergy Intermediate 03/23/21 Yes amlodipine besylate Allergy Intermediate Swelling 03/23/21 Yes carisoprodol Allergy Intermediate BREAK OUT 03/23/21 Yes iodine Allergy Intermediate 03/23/21 Yes nitrofurantoin Allergy Intermediate 03/23/21 Yes sertraline HCl Allergy Intermediate Nausea 03/23/21 Yes spironolactone Allergy Intermediate 03/23/21 Yes acetaminophen Allergy Mild Rash 03/23/21 Yes sertraline Allergy Unknown 08/02/21 Yes Physical Exam: PE: Constitutional: Well developed, well nourished, no acute distress, non-toxic appearance. [] HENT: Normocephalic, atraumatic, bilateral external ears normal, nose normal. [] Eyes: PERRLA, conjunctiva normal, no discharge. [] Neck: No rigidity, supple, no stridor. [] Cardiovascular: Regular rate and rhythm, brisk cap refill. Bilateral [] Lungs & Thorax: Non labored symmetric respirations, mild tachypnea Abdomen: Soft, nondistended. Skin: Warm, dry, no erythema, no rash. [] Back: Unremarkable Extremities: No deformities, range of motion grossly intact, no lower extremity edema [] Neurologic: Alert and oriented X 3, no focal deficits noted. [] Psychologic: Affect normal, judgement normal, mood normal. [] Current Patient Data: Vital Signs: Vital Signs Date Time Temp Pulse Resp B/P (MAP) Pulse Ox O2 Delivery O2 Flow Rate FiO2 08/02/21 12:45 97.5 98 42 159/109 (126) 92 Room Air EKG: EKG: Sinus rhythm, heart rate 85 bpm, normal intervals, no STEMI [] Radiology/Procedures: Radiology/Procedures: [address] [address] IMAGING REPORT Signed PATIENT: AGNIESZKA MOSS EACCOUNT: [id number] : 1935 LOCATION: ER AGE: 86 SEX: F EXAM STATUS: REG ER ORD. PHYSICIAN: HANNAH BAKER MD REASON: chf PROCEDURE: CHEST AP ONLY XR CHEST 1V History: Reason: chf / Spl. Instructions: / History: Comparison: March 23, 2021 Findings: Hyperinflation. Mild diffuse interstitial thickening with ill-defined opacities. No pleural effusion. No pneumothorax. Unchanged heart size. Impression: 1. Mild diffuse interstitial thickening with ill-defined opacities, may represent pulmonary edema. Electronically signed by: Awais Garay DO (08/02/2021 1:45 PM) [id number] DICTATED AND SIGNED BY: AWAIS GARAY DO DATE: 08/02/21 1344 CC: HANNAH BAKER MD; MARYA MAJOR MD ~ [] Heart Score: C/O Chest Pain: No Risk Factors: Risk Factors: DM, Current or recent (<one month) smoker, HTN, HLP, family history of CAD, obesity. Risk Scores: Score 0 - 3: 2.5% MACE over next 6 weeks - Discharge Home Score 4 - 6: 20.3% MACE over next 6 weeks - Admit for Clinical Observation Score 7 - 10: 72.7% MACE over next 6 weeks - Early Invasive Strategies Course & Med Decision Making: Course & Med Decision Making Pertinent Labs and Imaging studies reviewed. (See chart for details) [] [place] Disclaimer: Carleen Disclaimer: This electronic medical record was generated, in whole or in part, using a voice recognition dictation system. Departure Departure: Impression: Primary Impression: Acute exacerbation of congestive heart failure Disposition: ADMITTED INPATIENT Admitting Physician: Marya Major Condition: STABLE Referrals: MARYA MAJOR MD (PCP) HANNAH BAKER MD Aug 02, 2021 13:22
[2021-08-02 13:42] LABS: BASO # 0.1 x10^3/uL (0.0-0.2); BASO % 1 % (0-3); EOS # 0.1 x10^3/uL (0.0-0.7); EOS % 2 % (0-3); HEMATOCRIT 38.8 % (36.0-47.0); HEMOGLOBIN 13.3 g/dL (12.0-15.5); LYMPH # 1.9 x10^3/uL (1.0-4.8); LYMPH % 24 % (24-48); MEAN CORPUSCULAR HEMOGLOBIN 32 pg (25-35); MEAN CORPUSCULAR HGB CONC 34 g/dL (31-37); MEAN CORPUSCULAR VOLUME 94 fL (79-100); MONO # 0.6 x10^3/uL (0.0-1.1); MONO % 8 % (0-9); NEUT # 5.2 x10^3uL (1.8-7.7); NEUT % 66 % (31-73); PLATELET COUNT 274 x10^3/uL (140-400); RED BLOOD COUNT 4.12 x10^6/uL (3.50-5.40); RED CELL DISTRIBUTION WIDTH 14.5 % (11.5-14.5); WHITE BLOOD COUNT 7.9 x10^3/uL (4.0-11.0)
--- NOTE | 2021-08-02 13:48 | RAD ---
XR CHEST 1V History: Reason: chf / Spl. Instructions: / History: Comparison: March 23, 2021 Findings: Hyperinflation. Mild diffuse interstitial thickening with ill-defined opacities. No pleural effusion. No pneumothorax. Unchanged heart size. Impression: 1. Mild diffuse interstitial thickening with ill-defined opacities, may represent pulmonary edema. Electronically signed by: Awais Garay DO (08/02/2021 1:45 PM) [id number]
[2021-08-02 14:14] LABS: CALCIUM 8.7 mg/dL (8.5-10.1); CREATININE 0.8 mg/dL (0.6-1.0); GFR 68.2; POTASSIUM 3.5 mmol/L (3.5-5.1)
[2021-08-02 14:26] LABS: ALBUMIN 3.8 g/dL (3.4-5.0); ALBUMIN/GLOBULIN RATIO 1.3 (1.0-1.7); MAGNESIUM 1.7 mg/dL (1.8-2.4); PHOSPHORUS 3.7 mg/dL (2.6-4.7); TOTAL BILIRUBIN 0.7 mg/dL (0.2-1.0); TOTAL PROTEIN 6.8 g/dL (6.4-8.2)
[2021-08-02] MEDS ORDERED: ONDANSETRON PF 4 MG/2 ML VIAL. IVP PRN (15:30)
[2021-08-02] MEDS ORDERED: FUROSEMIDE 40 MG/4 ML VIAL IVP ONE (15:45)
[2021-08-02 16:49] LABS: CLARITY,URINE CLOUDY; COLOR,URINE YELLOW; GLUCOSE,URINE NEG (NEG); NITRITE,URINE NEG (NEG); RBC,URINE 0 /HPF (0-2); UROBILINOGEN,URINE 0.2 mg/dL (0.2 mg/dL)
[2021-08-02 16:50] LABS: BACTERIA,URINE MANY /HPF (0-FEW); SQUAMOUS EPITHELIAL CELL,UR FEW /LPF
[2021-08-02 17:26] LABS: INFLUENZA A PATIENT NEGATIVE (NEGATIVE); INFLUENZA B PATIENT NEGATIVE (NEGATIVE)
[2021-08-02 18:13] VITALS: BP 122/93
[2021-08-02] MEDS ORDERED: NITROGLYCERIN SUBLINGUAL 0.4 MG BOTTLE OF 25. SL PRN (18:30)
[2021-08-02] MEDS ORDERED: cloNIDine HCL 0.1 MG TABLET PO PRN (18:30)
[2021-08-02 20:39] VITALS: BP 117/65
[2021-08-02] MEDS: CARVEDILOL 12.5 MG TABLET PO SCH (20:40)
[2021-08-02] MEDS: EZETIMIBE 10 MG TABLET PO SCH (20:40)
[2021-08-02] MEDS: MEMANTINE 10 MG TABLET. PO SCH (20:40)
[2021-08-02] MEDS: traMADol 50 MG TABLET PO PRN (20:40)
[2021-08-02] MEDS: APIXABAN 5 MG TABLET. PO SCH (20:40)
[2021-08-02] MEDS: DEMECLOCYCLINE HCL 150 MG TABLET. PO SCH (20:40)
[2021-08-03] VITALS (9 sets, daily range): BP systolic 81–125; BP diastolic 50–72
[2021-08-03] MEDS: LEVOTHYROXINE 75 MCG TABLET PO SCH (06:13)
[2021-08-03] MEDS: CARVEDILOL 12.5 MG TABLET PO SCH ×3 (08:03→20:05)
[2021-08-03] MEDS: APIXABAN 5 MG TABLET. PO SCH ×2 (08:03→20:05)
[2021-08-03] MEDS: MULTIVITAMIN with MINERAL TABLET. PO SCH (08:03)
[2021-08-03] MEDS: MEMANTINE 10 MG TABLET. PO SCH ×2 (08:03→20:05)
[2021-08-03] MEDS: DEMECLOCYCLINE HCL 150 MG TABLET. PO SCH ×2 (08:04→20:06)
[2021-08-03] MEDS: PANTOPRAZOLE 40 MG TABLET. PO SCH (08:04)
[2021-08-03] MEDS: FUROSEMIDE 20 MG TABLET PO SCH (08:04)
[2021-08-03] MEDS: MIRABEGRON 25 MG TAB.ER.24H PO SCH (08:04)
[2021-08-03 09:29] LABS: BASO % 1 % (0-3); EOS # 0.1 x10^3/uL (0.0-0.7); EOS % 1 % (0-3); HEMATOCRIT 39.8 % (36.0-47.0); HEMOGLOBIN 13.6 g/dL (12.0-15.5); LYMPH # 2.2 x10^3/uL (1.0-4.8); LYMPH % 34 % (24-48); MEAN CORPUSCULAR HEMOGLOBIN 32 pg (25-35); MEAN CORPUSCULAR HGB CONC 34 g/dL (31-37); MEAN CORPUSCULAR VOLUME 94 fL (79-100); MONO # 0.5 x10^3/uL (0.0-1.1); MONO % 7 % (0-9); NEUT # 3.7 x10^3uL (1.8-7.7); NEUT % 57 % (31-73); PLATELET COUNT 275 x10^3/uL (140-400); RED BLOOD COUNT 4.23 x10^6/uL (3.50-5.40); RED CELL DISTRIBUTION WIDTH 14.5 % (11.5-14.5); WHITE BLOOD COUNT 6.5 x10^3/uL (4.0-11.0)
[2021-08-03 09:54] LABS: ALBUMIN 3.9 g/dL (3.4-5.0); ALBUMIN/GLOBULIN RATIO 1.2 (1.0-1.7); CALCIUM 8.9 mg/dL (8.5-10.1); CREATININE 0.9 mg/dL (0.6-1.0); GFR 59.5; POTASSIUM 3.7 mmol/L (3.5-5.1); TOTAL BILIRUBIN 0.7 mg/dL (0.2-1.0); TOTAL PROTEIN 7.1 g/dL (6.4-8.2)
--- NOTE | 2021-08-03 19:13 | EKG ---
[address] [address] Test Date: 2021-08-02 Test Time: 13:11:34 Pat Name: AGNIESZKA MOSS Department: Room: 111 A Gender: F Explosive Operator: : 1935 Requested By: HANNAH BAKER Order Number: [id number] Reading MD: Koby Pittman Measurements Intervals [place] Rate: 85 P: 50 VT: 216 QRS: 31 QRSD: 90 T: 50 QT: 386 QTc: 460 Interpretive Statements SINUS RHYTHM PROLONGED VT INTERVAL QRS(T) CONTOUR ABNORMALITY CONSIDER ANTEROSEPTAL MYOCARDIAL DAMAGE Electronically Signed On 08-05-2021 18:30:05 CDT by Koby Pittman
[2021-08-03] MEDS: traMADol 50 MG TABLET PO PRN (20:05)
[2021-08-03] MEDS: EZETIMIBE 10 MG TABLET PO SCH (20:05)
--- NOTE | 2021-08-03 23:16 | HP ---
DATE OF SERVICE: 08/03/2021 ADMIT DATE: 08/02/2021 HISTORY OF PRESENT ILLNESS: An 86-year-old female with a history of coronary artery disease, came in with feeling lightheaded and increased shortness of breath. The patient noted marked dyspnea and orthopnea. Denied chest pain. The patient had been seen by Dr. Cochran, sent over here to the Emergency Room for further evaluation. Workup demonstrated the patient was in heart failure with BNP greater than approximately 1500. As a result of this, the patient was admitted for further evaluation of her acute on top of chronic diastolic heart failure. PAST MEDICAL HISTORY: Includes that of cataracts, stroke, dementia, Alzheimer's disease, colitis, hysterectomy, urinary tract infections, arthritis, hypothyroidism, SIADH, depression, anxiety. FAMILY HISTORY: Positive for liver disease, diabetes, and Alzheimer's. ALLERGIES: THE PATIENT HAD ADVERSE REACTION TO INFLUENZA VACCINE, PENICILLIN, TYLENOL, ALENDRONATE, NORVASC, HERSON, IODINE, MACROBID, ZOLOFT and SPIRONOLACTONE. SOCIAL HISTORY: The patient denies smoking, alcohol or drug use. HOME MEDICATIONS: Include Eliquis 5 mg b.i.d., Zetia 10 mg a day, Clonidine 0.1, nitroglycerin, carvedilol 25 t.i.d., tramadol, Namenda 10 mg daily, furosemide 20 mg daily, Protonix 40 mg daily, and Synthroid 75 mcg daily. REVIEW OF SYSTEMS: The patient is a poor historian and as noted, has marked confusion. Otherwise, she tends to deny chest pain, but does have shortness of breath. PHYSICAL EXAMINATION: GENERAL: This is a pleasant white female, looking stated age. VITAL SIGNS: Initially in the Emergency Room, blood pressure went down to 81/58, respiratory rate 18, pulse 72, afebrile, room air 94. HEENT: The patient's head was atraumatic, normocephalic. Eyes: PERRLA without jaundice. The mouth and throat were normal. NECK: Supple. LUNGS: Diminished, primarily in the bases with some rhonchi and rales noted. CARDIOVASCULAR: Regular sinus rhythm. ABDOMEN: Soft, nontender. No rebounding or guarding. Positive bowel sounds. No hepatosplenomegaly was noted. EXTREMITIES: Without clubbing, cyanosis. Trace edema was noted in the extremities. Otherwise, basically unremarkable. LABORATORY DATA: The patient's labs did demonstrate an elevated BNP, slightly low sodium of 130 and potassium stable. Kidney function normal. TSH slightly low from her thyroid medicine. Magnesium slightly low at 1.7. IMPRESSION: Acute on top of chronic diastolic heart failure, hyponatremia; mild, Alzheimer's disease with dementia, hyperglycemia, hypotension. The patient will be monitored and adjusted on her medications, diurese gently, and make further evaluation on her low blood pressure. PREMA DR: Carmen TID: [id number]
[2021-08-04] MEDS: LEVOTHYROXINE 75 MCG TABLET PO SCH (06:17)
[2021-08-04 06:20] VITALS: BP 141/81
[2021-08-04 07:00] VITALS: BP 161/96
[2021-08-04] MEDS: MULTIVITAMIN with MINERAL TABLET. PO SCH (10:06)
[2021-08-04] MEDS: FUROSEMIDE 20 MG TABLET PO SCH (10:07)
[2021-08-04] MEDS: CARVEDILOL 12.5 MG TABLET PO SCH ×4 (10:07→19:51)
[2021-08-04] MEDS: MEMANTINE 10 MG TABLET. PO SCH ×2 (10:07→19:51)
[2021-08-04] MEDS: PANTOPRAZOLE 40 MG TABLET. PO SCH (10:07)
[2021-08-04] MEDS: APIXABAN 5 MG TABLET. PO SCH ×2 (10:07→19:50)
[2021-08-04] MEDS: MIRABEGRON 25 MG TAB.ER.24H PO SCH (10:08)
[2021-08-04] MEDS: DEMECLOCYCLINE HCL 150 MG TABLET. PO SCH ×2 (10:08→20:21)
[2021-08-04 11:00] VITALS: BP 178/99
[2021-08-04] MEDS: ONDANSETRON ODT 4 MG TAB.RAPDIS PO PRN (12:24)
[2021-08-04 15:00] VITALS: BP 148/89
[2021-08-04 19:20] VITALS: BP 154/89
[2021-08-04] MEDS: traMADol 50 MG TABLET PO PRN (19:49)
[2021-08-04] MEDS: EZETIMIBE 10 MG TABLET PO SCH (20:23)
[2021-08-04 23:17] VITALS: BP 145/87
[2021-08-05] MEDS: LEVOTHYROXINE 75 MCG TABLET PO SCH (05:55)
[2021-08-05 06:05] VITALS: BP 151/81
[2021-08-05] MEDS: APIXABAN 5 MG TABLET. PO SCH (07:57)
[2021-08-05] MEDS: ONDANSETRON ODT 4 MG TAB.RAPDIS PO PRN (07:58)
[2021-08-05] MEDS: CARVEDILOL 12.5 MG TABLET PO SCH (07:58)
[2021-08-05] MEDS: MULTIVITAMIN with MINERAL TABLET. PO SCH (07:58)
[2021-08-05] MEDS: FUROSEMIDE 20 MG TABLET PO SCH (07:58)
[2021-08-05] MEDS: MIRABEGRON 25 MG TAB.ER.24H PO SCH (08:02)
[2021-08-05] MEDS: PANTOPRAZOLE 40 MG TABLET. PO SCH (08:02)
[2021-08-05] MEDS: MEMANTINE 10 MG TABLET. PO SCH (08:02)
[2021-08-05] MEDS: DEMECLOCYCLINE HCL 150 MG TABLET. PO SCH (08:04)
[2021-08-05] MEDS ORDERED: PROCHLORPERAZINE 10 MG/2 ML VIAL. IV PRN (09:30)
--- NOTE | 2021-08-05 10:24 | DISCH ---
HOME HEALTH DISCHARGE/MEDS DISCHARGE INFORMATION: Discharge Date: Aug 05, 2021 Final Diagnosis: Problems Medical Problems: (1) Acute exacerbation of congestive heart failure Status: Acute Condition on Discharge: Stable CODE STATUS: Code Status: Full HOME HEALTH: Face to Face: I certify this patient is under my care and that I, or a nurse practitioner or physician's podiatry assistant working with me, had a face to face encounter that meets the physician face to face encounter requirements with this patient on August 05, 2021. Medical Condition(s): CHF, Dementia Long-Term For: Assess Cardiopulm Status, Assess & Educate Safety, Assess/Skilled Observatio, Medication Management Homebound Status Met By: Psychological condition POST DISCHARGE ORDERS: Activity Instructions for Disc: Activity as tolerated Weight Bearing Status after Di: No restrictions DIET AFTER DISCHARGE: Regular CERTIFICATION STATEMENT: Certification Statement: Based on the above finding, I certify that this patient is confined to the home and needs intermittent mcfp care, physical therapy and/or speech therapy, or continues to need occupational therapy.~ This patient is under my care, and I have initiated the establishment of the plan of care.~ This patient will be followed by myself or a community physician who will periodically review the plan of care. DISCHARGE MEDICATIONS: Home Meds Active Scripts Furosemide (LASIX) 20 Mg Tablet, 1 TAB PO DAILY for chf for 30 Days, #30 TAB 0 Refills Prov:MARYA MAJOR MD 03/24/21 Mirabegron (MYRBETRIQ) 25 Mg Tab.er.24h, 25 MG PO DAILY for oab for 30 Days, #30 TAB.SR Prov:MARYA MAJOR MD 03/24/21 Pantoprazole Sodium (PANTOPRAZOLE SODIUM) 40 Mg Tablet.dr, 40 MG PO DAILYAC for GERD, #30 TAB 2 Refills Prov:MARYA MAJOR MD 01/12/20 Ondansetron (ONDANSETRON ODT) 4 Mg Tab.rapdis, 4 MG PO PRN Q8HRS PRN for 1st choice NAUSEA/VOMITING, #10 TAB Prov:MARYA MAJOR MD 01/12/20 [Demeclocycline Hcl] 150 MG TABLET No Conflict Check, 150 MG PO Q12HR for maintain sodium level for 30 Days, #60 3 Refills Prov:MARYA MAJOR MD 01/12/20 Reported Medications Tramadol Hcl (TRAMADOL HCL) 50 Mg Tablet, 50 MG PO PRN Q6HRS PRN for PAIN LAST DOSE GIVEN: DATE: TIME: NEXT DOSE DUE: DATE: TIME: 01/01/20 Memantine HCl (Memantine HCl) 10 Mg Tablet, 10 MG PO BID for Dementia LAST DOSE GIVEN: DATE:01/12/20 TIME:morning NEXT DOSE DUE: DATE:01/12/20 TIME:evening 01/01/20 Levothyroxine Sodium (SYNTHROID) 75 Mcg Tablet, 75 MCG PO DAILY for hypothyroid LAST DOSE GIVEN: DATE: TIME: NEXT DOSE DUE: DATE: TIME: 02/11/19 Clonidine Hcl (CLONIDINE HCL) 0.1 Mg Tablet, 0.1 MG PO PRN Q6HRS PRN for HIGH BLOOD PRESSURE TAKE WHEN SBP >180 not given this admission NEXT DOSE DUE: DATE:when needed TIME: NEXT DOSE DUE: DATE: TIME: 07/20/17 Carvedilol (CARVEDILOL) 25 Mg Tablet, 25 MG PO TID for HYPERTENSION LAST DOSE GIVEN: DATE:01/12/20 TIME:morning NEXT DOSE DUE: DATE:01/12/20 TIME:evening 07/20/17 Nitroglycerin (NITROGLYCERIN SubLingual) 0.4 Mg Tab.subl, 0.4 MG SL PRN Q5MIN PRN for CHEST PAIN not given this admission NEXT DOSE DUE: DATE: TIME: DATE: TIME: 02/09/14 Apixaban (ELIQUIS) 5 Mg Tablet, 5 MG PO BID for Blood thinner LAST DOSE GIVEN: DATE:01/12/20 TIME:morning NEXT DOSE DUE: DATE:01/12/20 TIME:evening 06/09/13 Ezetimibe (ZETIA) 10 Mg Tablet, 10 MG PO HS for High Cholesterol LAST DOSE GIVEN: DATE:01/11/20 TIME:bedtime NEXT DOSE DUE: DATE:01/12/20 TIME:bedtime 06/09/13 Multivitamin (MULTI-VITAMIN DAILY) 1 Each Tablet, 1 TAB PO DAILY for Supplement LAST DOSE GIVEN: DATE:01/12/20 TIME:morning NEXT DOSE DUE: DATE:01/13/20 TIME:morning 06/09/13 MARYA MAJOR MD Aug 05, 2021 10:23
[2021-08-05 11:00] VITALS: BP 120/73
--- NOTE | 2021-08-06 02:37 | PN ---
SUBJECTIVE: The patient was doing fairly well except she began to have severe nausea, vomiting and elevated blood pressure approximately 180/110. The patient was given a clonidine to bring down her blood pressure and given some Zofran for her nausea. Otherwise, the patient seems to be improved. We will continue to monitor her accordingly. The patient otherwise is making fairly good progress overall. OBJECTIVE: LUNGS: Diminished, primarily in the bases. CARDIOVASCULAR: Irregular irregular rhythm. ABDOMEN: Soft, nontender. EXTREMITIES: No clubbing, cyanosis or edema. IMPRESSION: Hypertensive urgency, nausea, vomiting, acute on top of chronic diastolic heart failure. PLAN: We will continue to monitor the patient and make further evaluation on her as indicated and adjust her medications accordingly for her blood pressure as well as controlling her nausea and vomiting. MARIA TERESA DR: Carmen TID: [id number]
--- NOTE | 2021-08-06 18:02 | DS ---
DATE OF DISCHARGE: 08/05/2021 HOSPITAL COURSE: An 86-year-old female. The patient came in with extreme shortness of breath. The patient was known to be in acute on top of chronic diastolic heart failure. She has had a history of a nonischemic cardiomyopathy in the past and hypertensive urgency. The patient also has Alzheimer's type with some paranoid ideation as well as hallucinations. She told several stories that were not able to be confirmed. In any case, the patient did have some episodes of nausea and vomiting, but they were cleared. Her labs, her CBC was perfectly normal. Her hemoglobin and hematocrit were stable. Sodium and potassium were up to 133 and 3.7, BUN and creatinine 13 and 0.9, sugars in the low 100s. Her TSH was slightly low at 0.2 and she does take thyroid medicine, but not significant there. The patient's urine was contaminated. The patient made good progress with diuresis and was discharged home without any significant episode. She had one element of hypertensive urgency, which was controlled. IMPRESSION: Acute on top of chronic diastolic heart failure, hypertensive urgency, dementia, Alzheimer type with hallucinations. The patient will be discharged home. Heart healthy diet, decreased activity and follow up accordingly as outpatient. ALYSSA/MARGUERITE/MARGY DR: Carmen TID: [id number]
== END 2021-08-05 14:41 | disposition home health service (06) | DRG 291 ==
LOC: ER 12:36 → ER HOLD 15:19 → 1 SOUTH 16:13
PROVIDERS: ADMIT Family Medicine; ATTEND Family Medicine
DX: I11.0 Hypertensive heart disease with heart failure (principal); I50.33 Acute on chronic diastolic (congestive) heart failure; E87.1 Hypo-osmolality and hyponatremia; Z20.822 Contact with and (suspected) exposure to COVID-19; I16.0 Hypertensive urgency; I42.8 Other cardiomyopathies; E03.9 Hypothyroidism, unspecified; F02.80 Dementia in other diseases classified elsewhere, unspecified severity, without behavioral disturbance, psychotic disturbance, mood disturbance, and anxiety; F60.0 Paranoid personality disorder; G30.9 Alzheimer's disease, unspecified; I25.10 Atherosclerotic heart disease of native coronary artery without angina pectoris; J44.9 Chronic obstructive pulmonary disease, unspecified; Z82.0 Family history of epilepsy and other diseases of the nervous system; Z83.3 Family history of diabetes mellitus; Z86.73 Personal history of transient ischemic attack (TIA), and cerebral infarction without residual deficits; Z87.891 Personal history of nicotine dependence; Z90.710 Acquired absence of both cervix and uterus; F32.A Depression, unspecified; F41.9 Anxiety disorder, unspecified; M19.90 Unspecified osteoarthritis, unspecified site; I95.9 Hypotension, unspecified; R73.9 Hyperglycemia, unspecified; Z88.0 Allergy status to penicillin; Z88.7 Allergy status to serum and vaccine; Z91.018 Allergy to other foods
CPT/HCPCS: 36415; 71045; 80053; 81001; 83605; 83735; 83880; 84100; 84443; 84484; 85025; 87086; 87428; 93005; 96374; J0780; J1940; Q0162; U0003; 99285-25